=== PATIENT | male | born 1950 | race Caucasian/White ===

== ENCOUNTER 2018-07-13 18:26 | Inpatient (IN) | payer MEDICARE, OTHER ==
[~2018-07-13] VITALS: Ht 182.9 cm; Wt 106.3 kg
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
[2018-07-13 20:13] VITALS: BP 150/80
[2018-07-13] MEDS ORDERED: METHYL SALICYLATE/MENTHOL TOPICAL OINTMENT 29GM TUBE. TP PRN (21:00)
[2018-07-13] MEDS ORDERED: MAGNESIUM HYDROXIDE 2,400 MG/30 ML ORAL.SUSP. PO PRN (21:00)
[2018-07-13] MEDS ORDERED: ACETAMINOPHEN 325 MG TABLET PO PRN (21:00)
[2018-07-13] MEDS ORDERED: MAG HYDROX/AL HYDROX/SIMETH 30 ML ORAL.SUSP PO PRN (21:00)
[2018-07-13 21:26] LABS: BASO # 0.1 x10^3/uL (0.0-0.2); BASO % 1 % (0-3); EOS # 0.2 x10^3/uL (0.0-0.7); EOS % 2 % (0-3); HEMATOCRIT 44.8 % (39.0-53.0); HEMOGLOBIN 14.9 g/dL (13.0-17.5); LYMPH # 1.8 x10^3/uL (1.0-4.8); LYMPH % 21 % (24-48); MEAN CORPUSCULAR HEMOGLOBIN 31 pg (25-35); MEAN CORPUSCULAR HGB CONC 33 g/dL (31-37); MEAN CORPUSCULAR VOLUME 93 fL (79-100); MONO # 1.4 x10^3/uL (0.0-1.1); MONO % 16 % (0-9); NEUT # 5.4 x10^3uL (1.8-7.7); NEUT % 60 % (31-73); PLATELET COUNT 228 x10^3/uL (140-400); RED BLOOD COUNT 4.81 x10^6/uL (4.30-5.70); RED CELL DISTRIBUTION WIDTH 15.1 % (11.5-14.5); WHITE BLOOD COUNT 8.9 x10^3/uL (4.0-11.0)
[2018-07-13 21:38] LABS: ALBUMIN 3.2 g/dL (3.4-5.0); ALBUMIN/GLOBULIN RATIO 0.8 (1.0-1.7); GFR 74.1; TOTAL BILIRUBIN 0.3 mg/dL (0.2-1.0); TOTAL PROTEIN 7.2 g/dL (6.4-8.2)
--- NOTE | 2018-07-13 22:00 | NUR ---
Behavior Intervention Response and Plan: BIRP Note: Behavior: Assumed Care of patient, patient located in Patient Room at shift change. Patient exhibited the following behavior Calm, Social, Compliant. Brief assessment on rounds of vital signs, medication needs, lab studies, and pain. Treatment plan problems . Intervention: Patient assessed and the following interventions initiated safety checks 15 Minute Checks Cognitive Assessment , Head to toe Assessment , Nutrition. Response: After interactions and interventions patient responded in the following manner, Drowsy , Calm ,Social. Continue to assess behaviors and condition will continue to monitor throughout the shift as needed. Patient educated on ADL's, and hand hygiene. Plan: Continue to monitor Master Treatment Plan for patient's progress toward short term goals of Decreased Agitation, Decreased Anxiety, penitentiary goals to return to previous living setting vs placement. Continue to assess patient for changes in above assessment. Monitor for medication needs, pain, and safety concerns. Hourly rounding performed to ensure safe environment.
--- NOTE | 2018-07-13 22:33 | PDOC ---
Exam Note: Rick Note: Please also refer to the separate dictated note~for this date of service dictated separately. Discussed the patient with Nursing staff reviewed the chart.~Reviewed interim history and current functioning. Reviewed vital signs,~ Labs/ Radiology~and current medications noted below. Continue current treatment with the changes noted in the dictated addendum note Assessment: Vital Signs: Vital Signs Date Time Temp Pulse Resp B/P (MAP) Pulse Ox O2 Delivery O2 Flow Rate FiO2 07/13/18 20:13 97.5 88 16 150/80 (103) 95 Labs: Laboratory Tests Test 07/13/18 21:15 White Blood Count 8.9 x10^3/uL (4.0-11.0) Red Blood Count 4.81 x10^6/uL (4.30-5.70) Hemoglobin 14.9 g/dL (13.0-17.5) Hematocrit 44.8 % (39.0-53.0) Mean Corpuscular Volume 93 fL (79-100) Mean Corpuscular Hemoglobin 31 pg (25-35) Mean Corpuscular Hemoglobin Concent 33 g/dL (31-37) Red Cell Distribution Width 15.1 % (11.5-14.5) H Platelet Count 228 x10^3/uL (140-400) Neutrophils (%) (Auto) 60 % (31-73) Lymphocytes (%) (Auto) 21 % (24-48) L Monocytes (%) (Auto) 16 % (0-9) H Eosinophils (%) (Auto) 2 % (0-3) Basophils (%) (Auto) 1 % (0-3) Neutrophils # (Auto) 5.4 x10^3uL (1.8-7.7) Lymphocytes # (Auto) 1.8 x10^3/uL (1.0-4.8) Monocytes # (Auto) 1.4 x10^3/uL (0.0-1.1) H Eosinophils # (Auto) 0.2 x10^3/uL (0.0-0.7) Basophils # (Auto) 0.1 x10^3/uL (0.0-0.2) Sodium Level 138 mmol/L (136-145) Potassium Level 4.0 mmol/L (3.5-5.1) Chloride Level 101 mmol/L (98-107) Carbon Dioxide Level 33 mmol/L (21-32) H Anion Gap 4 (6-14) L Blood Urea Nitrogen 18 mg/dL (8-26) Creatinine 1.0 mg/dL (0.7-1.3) Estimated GFR (Cockcroft-Gault) 74.1 BUN/Creatinine Ratio 18 (6-20) Glucose Level 122 mg/dL (70-99) H Calcium Level 9.0 mg/dL (8.5-10.1) Magnesium Level 2.0 mg/dL (1.8-2.4) Total Bilirubin 0.3 mg/dL (0.2-1.0) Aspartate Amino Transferase (AST) 10 U/L (15-37) L Alanine Aminotransferase (ALT) 16 U/L (16-63) Alkaline Phosphatase 120 U/L (46-116) H Total Protein 7.2 g/dL (6.4-8.2) Albumin 3.2 g/dL (3.4-5.0) L Albumin/Globulin Ratio 0.8 (1.0-1.7) L Current Medications: Meds: Current Medications Acetaminophen (Tylenol) 650 mg PRN Q6HRS PRN PO PAIN / TEMP; Start 07/13/18 at 21:00 Multi-Ingredient Ointment (Analgesic [place]) 1 arpan PRN QID PRN TP MUSCLE PAIN; Start 07/13/18 at 21:00 Al Hydroxide/Mg Hydroxide (Mylanta Plus Xs) 15 ml PRN AFTMEALHC PRN PO DYSPEPSIA; Start 07/13/18 at 21:00 Magnesium Hydroxide (Milk Of Magnesia) 2,400 mg PRN QHS PRN PO CONSTIPATION; Start 07/13/18 at 21:00 I have reviewed the current psychotropics carefully including drug interactions. Risk benefit ratio favors no change other than as noted in my dictated progress note. Diagnosis: Problems: (1) Altered mental status JESSICA QUINTERO MD Jul 13, 2018 22:33
[2018-07-14] MEDS ORDERED: FURO-69 PO (00:21)
[2018-07-14] MEDS ORDERED: GUAI237L83 PO (00:21)
[2018-07-14] MEDS ORDERED: CLON0.5T11 PO (00:21)
[2018-07-14] MEDS ORDERED: OMEP20TA63 PO (00:21)
[2018-07-14] MEDS ORDERED: RISP50DI IM (00:21)
[2018-07-14] MEDS ORDERED: FINA5TAB4 PO (00:21)
[2018-07-14] MEDS ORDERED: ASPI-630 PO (00:21)
[2018-07-14] MEDS ORDERED: MENT118G TP (00:21)
[2018-07-14] MEDS ORDERED: CLON-276 PO (00:21)
[2018-07-14] MEDS ORDERED: SERT100T PO (00:21)
[2018-07-14] MEDS ORDERED: DIVA500T17 PO (00:21)
[2018-07-14] MEDS ORDERED: LEVO100T PO (00:21)
[2018-07-14] MEDS ORDERED: ACET500T68 PO (00:21)
[2018-07-14] MEDS ORDERED: NON FORMULARY ITEM (Menthol (Biofreeze) 1 APP) TP PRN (00:30)
[2018-07-14] MEDS ORDERED: clonazePAM 0.5 MG TABLET PO PRN (00:30)
[2018-07-14] MEDS ORDERED: guaiFENesin DM 200MG/20MG 10 ML SYRUP PO PRN (00:30)
[2018-07-14 00:59] LABS: VAL ACID 40 mcg/mL (50-100)
[2018-07-14 06:14] VITALS: BP 110/64
[2018-07-14 06:45] LABS: BILIRUBIN,URINE NEG (NEG); CLARITY,URINE CLEAR; COLOR,URINE YELLOW; GLUCOSE,URINE NEG (NEG)
[2018-07-14 06:46] LABS: BACTERIA,URINE 0 /HPF (0-FEW); NITRITE,URINE NEG (NEG); RBC,URINE 0 /HPF (0-2); UROBILINOGEN,URINE 0.2 mg/dL (0.2 mg/dL); WBC,URINE 0 /HPF (0-4)
[2018-07-14] MEDS ORDERED: LEVOTHYROXINE 100 MCG TABLET PO SCH (07:30)
[2018-07-14] MEDS: FUROSEMIDE 20 MG TABLET PO SCH (07:54)
[2018-07-14] MEDS: cloNIDine HCL 0.2 MG TABLET PO SCH ×2 (07:54→17:42)
[2018-07-14] MEDS: ASPIRIN 81 MG TAB.CHEW PO SCH (07:54)
[2018-07-14] MEDS: PANTOPRAZOLE 40 MG TABLET. PO SCH (07:54)
[2018-07-14] MEDS: FINASTERIDE 5 MG TABLET PO SCH (07:54)
--- NOTE | 2018-07-14 10:13 | NUR ---
Behavior Intervention Response and Plan: BIRP Note: Behavior: Assumed Care of patient, patient located in Dining Room at shift change. Patient exhibited the following behavior Calm, Compliant, Cooperative. Brief assessment on rounds of vital signs, medication needs, lab studies, and pain. Treatment plan problems . Intervention: Patient assessed and the following interventions initiated safety checks 15 Minute Checks Cognitive Assessment , Head to toe Assessment , Medications. Response: After interactions and interventions patient responded in the following manner, Calm , Compliant ,Cooperative. Continue to assess behaviors and condition will continue to monitor throughout the shift as needed. Patient educated on ADL's, and hand hygiene. Plan: Continue to monitor Master Treatment Plan for patient's progress toward short term goals of Decreased Agitation, Decreased Aggression, intermodal customer service goals to return to previous living setting vs placement. Continue to assess patient for changes in above assessment. Monitor for medication needs, pain, and safety concerns. Hourly rounding performed to ensure safe environment.
[2018-07-14 13:41] LABS: THYROID STIM HORMONE (TSH) 9.751 uIU/mL (0.358-3.740)
[2018-07-14 16:32] VITALS: BP 145/94
[2018-07-14 17:01] LABS: BACTERIA,URINE 0 /HPF (0-FEW); BILIRUBIN,URINE NEG (NEG); CLARITY,URINE CLEAR; COLOR,URINE YELLOW; GLUCOSE,URINE NEG (NEG); NITRITE,URINE NEG (NEG); RBC,URINE 0 /HPF (0-2); UROBILINOGEN,URINE 0.2 mg/dL (0.2 mg/dL); WBC,URINE RARE /HPF (0-4)
--- NOTE | 2018-07-14 17:48 | NUR ---
pt up adl to meals and out to day room at times. compliant with meds and cares. no c/o voices today. did c/o Bilat knee pain. Bengay given.
[2018-07-14] MEDS: SERTRALINE 100 MG TABLET. PO SCH (19:33)
[2018-07-14 20:07] LABS: THYROXINE 5.5 ug/dL (4.5-12.0)
[2018-07-14] MEDS ORDERED: DIVALPROEX ER 500 MG TAB.ER.24H PO SCH (21:00)
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
--- NOTE | 2018-07-14 22:32 | PDOC ---
Exam Note: Rick Note: Please also refer to the separate dictated note~for this date of service dictated separately.~Patient seen individually. Discussed the patient with Nursing staff reviewed the chart.~Reviewed interim history and current functioning. Reviewed vital signs,~Labs/ Radiology~and current medications noted below. Continue current treatment with the changes noted in the dictated addendum note Assessment: Vital Signs: Vital Signs Date Time Temp Pulse Resp B/P (MAP) Pulse Ox O2 Delivery O2 Flow Rate FiO2 07/14/18 17:42 65 145/94 07/14/18 16:32 97.6 18 100 Room Air I&O Intake and Output 07/14/18 07:00 Intake Total 500 ml Balance 500 ml Intake Oral 500 ml # Voids 1 # Bowel Movements 1 Labs: Laboratory Tests Test 07/14/18 06:25 07/14/18 16:30 Urine Collection Type Unknown Clean catch Urine Color Yellow Yellow Urine Clarity Clear Clear Urine pH 7.0 6.0 Urine Specific [place] 1.015 1.010 Urine Protein Neg (NEG-TRACE) Neg (NEG-TRACE) Urine Glucose (UA) Neg mg/dL (NEG) Neg mg/dL (NEG) Urine Ketones (Stick) Neg mg/dL (NEG) Neg mg/dL (NEG) Urine Blood Neg (NEG) Neg (NEG) Urine Nitrite Neg (NEG) Neg (NEG) Urine Bilirubin Neg (NEG) Neg (NEG) Urine Urobilinogen Dipstick 0.2 mg/dL (0.2 mg/dL) 0.2 mg/dL (0.2 mg/dL) Urine Leukocyte Esterase Neg (NEG) Neg (NEG) Urine RBC 0 /HPF (0-2) 0 /HPF (0-2) Urine WBC 0 /HPF (0-4) Rare /HPF (0-4) Urine Squamous Epithelial Cells None /LPF None /LPF Urine Bacteria 0 /HPF (0-FEW) 0 /HPF (0-FEW) Urine Mucus Slight /LPF Current Medications: Meds: Current Medications Acetaminophen (Tylenol) 650 mg PRN Q6HRS PRN PO PAIN / TEMP; Start 07/13/18 at 21:00 Multi-Ingredient Ointment (Analgesic [place]) 1 kiara PRN QID PRN TP MUSCLE PAIN Last administered on 07/14/18at 11:30; Start 07/13/18 at 21:00 Al Hydroxide/Mg Hydroxide (Mylanta Plus Xs) 15 ml PRN AFTMEALHC PRN PO DYSPEPSIA; Start 07/13/18 at 21:00 Magnesium Hydroxide (Milk Of Magnesia) 2,400 mg PRN QHS PRN PO CONSTIPATION; Start 07/13/18 at 21:00 Clonazepam (KlonoPIN) 0.5 mg PRN DAILY PRN PO ANXIETY / AGITATION Last administered on 07/14/18 07:54; Start 07/14/18 at 00:30 Furosemide (Lasix) 20 mg DAILY PO Last administered on 07/14/18 07:54; Start 07/14/18 at 09:00 Levothyroxine Sodium (Synthroid) 100 mcg DAILYAC PO Last administered on 07:53; Start 07/14/18 at 07:30; Stop 07/14/18 at 07:57; Status DC Risperidone (RisperDAL CONSTA) 50 mg Q2WKS IM ; Start 07/20/18 at 09:00 Sertraline HCl (Zoloft) 100 mg HS PO Last administered on 07/14/18 19:33; Start 07/14/18 at 21:00 Acetaminophen (Tylenol) 500 mg PRN Q6HRS PRN PO MILD PAIN / TEMP; Start at 00:30 Aspirin (Children'S Aspirin) 81 mg DAILYWBKFT PO Last administered on 07:54; Start 07/14/18 at 08:00 Clonidine HCl (Catapres) 0.2 mg BIDWMEALS PO Last administered on 07/14/18 17: 42; Start 07/14/18 at 08:00 Divalproex Sodium (Depakote Er) 1,000 mg QHS PO Last administered on 07/14/18 19:33; Start 07/14/18 at 21:00 Finasteride (Proscar) 5 mg DAILY PO Last administered on 07/14/18 07:54; Start 07/14/18 at 09:00 Guaifenesin (Robitussin Dm) 5 ml PRN Q8HRS PRN PO COUGH; Start 07/14/18 at 00: 30 Non-Formulary Medication (Menthol (Biofreeze)) 1 kiara QIDPRN PRN TP PAIN; Start 07/14/18 at 00:30; Status UNV Pantoprazole Sodium (Protonix) 40 mg DAILYAC PO Last administered on 07/14/18at 07:54; Start 07/14/18 at 07:30 Levothyroxine Sodium (Synthroid) 100 mcg DAILY06 PO ; Start 07/15/18 at 06:00 Risperidone (RisperDAL CONSTA) 50 mg Q2WKS IM ; Start 07/20/18 at 09:00; Stop at 09:00; Status DC Active Scripts Active Reported Zoloft (Sertraline Hcl) 100 Mg Tablet 100 Mg PO HS Risperdal Consta (Risperidone Microspheres) 50 Mg/2 Ml Disp.syrin 50 Mg IM Q2WKS Prilosec Otc (Omeprazole Magnesium) 20 Mg Tablet.dr 40 Mg PO DAILY Biofreeze (Menthol) 118 Ml Gel..ml. 1 Kiara TP QIDPRN PRN Synthroid (Levothyroxine Sodium) 100 Mcg Tablet 100 Mcg PO DAILYAC Lasix (Furosemide) 20 Mg Tablet 20 Mg PO DAILY Finasteride 5 Mg Tablet 5 Mg PO DAILY Divalproex Sodium Er (Divalproex Sodium) 500 Mg Tab.er.24h 1,000 Mg PO HS Robitussin Cough-Chest Dm Liq (Guaifenesin/Dextromethorphan) 237 Ml Liquid 5 Ml PO PRN Q8HRS PRN Clonazepam 0.5 Mg Tablet 0.5 Mg PO PRN DAILY PRN Clonidine Hcl 0.2 Mg Tablet 0.2 Mg PO BIDWMEALS Aspirin 81 Mg Tab.chew 81 Mg PO DAILY Acetaminophen 500 Mg Tablet 500 Mg PO PRN Q6HRS PRN I have reviewed the current psychotropics carefully including drug interactions. Risk benefit ratio favors no change other than as noted in my dictated progress note. Diagnosis: Problems: (1) Altered mental status (2) Anxiety disorder (3) Psychosis, atypical (4) Major depressive disorder, recurrent episode (5) Mild cognitive impairment JESSICA QUINTERO MD Jul 14, 2018 22:32
[2018-07-14 23:11] LABS: HEMOGLOBIN A1C 5.7 % (4.8-5.6)
--- NOTE | 2018-07-15 01:46 | NUR ---
Pt sitting in room at shift change. Pt calm, pleasant, interactive, and social. Pt cooperative and compliant with medications and assessment.
[2018-07-15] MEDS: LEVOTHYROXINE 100 MCG TABLET PO SCH (06:26)
[2018-07-15 06:40] VITALS: BP 117/76
[2018-07-15] MEDS: cloNIDine HCL 0.2 MG TABLET PO SCH ×2 (08:11→18:06)
[2018-07-15] MEDS: ASPIRIN 81 MG TAB.CHEW PO SCH (08:11)
[2018-07-15] MEDS: FUROSEMIDE 20 MG TABLET PO SCH (08:11)
[2018-07-15] MEDS: FINASTERIDE 5 MG TABLET PO SCH (08:11)
[2018-07-15] MEDS: PANTOPRAZOLE 40 MG TABLET. PO SCH (08:11)
--- NOTE | 2018-07-15 09:54 | NUR ---
Behavior Intervention Response and Plan: BIRP Note: Behavior: Assumed Care of patient, patient located in Dining Room at shift change. Patient exhibited the following behavior Calm, Compliant, Cooperative. Brief assessment on rounds of vital signs, medication needs, lab studies, and pain. Treatment plan problems . Intervention: Patient assessed and the following interventions initiated safety checks 15 Minute Checks Cognitive Assessment , Head to toe Assessment , Medications. Response: After interactions and interventions patient responded in the following manner, Calm , Compliant ,Cooperative. Continue to assess behaviors and condition will continue to monitor throughout the shift as needed. Patient educated on ADL's, and hand hygiene. 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 Continue to assess patient for changes in above assessment. Monitor for medication needs, pain, and safety concerns. Hourly rounding performed to ensure safe environment.
[2018-07-15 16:01] VITALS: BP 148/96
--- NOTE | 2018-07-15 18:19 | NUR ---
pt up adl to meals. usually withdrawn to room. Dr Diop informed of c/o of groin pain and bilat hip pain. News noted. Pt compliant with meds and cares.
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
[2018-07-15] MEDS: HALOPERIDOL 10 MG/5 ML ORAL.CONC. PO SCH (20:47)
[2018-07-15] MEDS: DIVALPROEX ER 250 MG TAB.ER.24H. PO SCH (20:47)
[2018-07-15] MEDS: SERTRALINE 100 MG TABLET. PO SCH (20:47)
[2018-07-15] MEDS ORDERED: HALOPERIDOL 2 MG TABLET PO SCH (21:00)
--- NOTE | 2018-07-15 21:46 | PDOC ---
Exam Note: Rick Note: Please also refer to the separate dictated note~for this date of service dictated separately.~Patient seen individually. Discussed the patient with Nursing staff reviewed the chart.~Reviewed interim history and current functioning. Reviewed vital signs,~Labs/ Radiology~and current medications noted below. Continue current treatment with the changes noted in the dictated addendum note Assessment: Vital Signs: Vital Signs Date Time Temp Pulse Resp B/P (MAP) Pulse Ox O2 Delivery O2 Flow Rate FiO2 07/15/18 18:06 65 148/96 07/15/18 16:01 98.0 18 95 07/14/18 16:32 Room Air I&O Intake and Output 07/15/18 07:00 Intake Total 840 ml Balance 840 ml Intake Oral 840 ml Current Medications: Meds: Current Medications Acetaminophen (Tylenol) 650 mg PRN Q6HRS PRN PO PAIN / TEMP; Start 07/13/18 at 21:00 Multi-Ingredient Ointment (Analgesic [place]) 1 kiara PRN QID PRN TP MUSCLE PAIN Last administered on 07/14/18at 11:30; Start 07/13/18 at 21:00 Al Hydroxide/Mg Hydroxide (Mylanta Plus Xs) 15 ml PRN AFTMEALHC PRN PO DYSPEPSIA; Start 07/13/18 at 21:00 Magnesium Hydroxide (Milk Of Magnesia) 2,400 mg PRN QHS PRN PO CONSTIPATION; Start 07/13/18 at 21:00 Clonazepam (KlonoPIN) 0.5 mg PRN DAILY PRN PO ANXIETY / AGITATION Last administered on 07/14/18at 07:54; Start 07/14/18 at 00:30 Furosemide (Lasix) 20 mg DAILY PO Last administered on 07/15/18at 08:11; Start 07/14/18 at 09:00 Levothyroxine Sodium (Synthroid) 100 mcg DAILYAC PO Last administered on at 07:53; Start 07/14/18 at 07:30; Stop 07/14/18 at 07:57; Status DC Risperidone (RisperDAL CONSTA) 50 mg Q2WKS IM ; Start 07/20/18 at 09:00 Sertraline HCl (Zoloft) 100 mg HS PO Last administered on 07/15/18at 20:47; Start 07/14/18 at 21:00 Acetaminophen (Tylenol) 500 mg PRN Q6HRS PRN PO MILD PAIN / TEMP; Start at 00:30 Aspirin (Children'S Aspirin) 81 mg DAILYWBKFT PO Last administered on at 08:11; Start 07/14/18 at 08:00 Clonidine HCl (Catapres) 0.2 mg BIDWMEALS PO Last administered on 07/15/18 18: 06; Start 07/14/18 at 08:00 Divalproex Sodium (Depakote Er) 1,000 mg QHS PO Last administered on 07/14/18 19:33; Start 07/14/18 at 21:00; Stop 07/15/18 at 19:35; Status DC Finasteride (Proscar) 5 mg DAILY PO Last administered on 07/15/18at 08:11; Start 07/14/18 at 09:00 Guaifenesin (Robitussin Dm) 5 ml PRN Q8HRS PRN PO COUGH; Start 07/14/18 at 00: 30 Non-Formulary Medication (Menthol (Biofreeze)) 1 kiara QIDPRN PRN TP PAIN; Start 07/14/18 at 00:30; Status UNV Pantoprazole Sodium (Protonix) 40 mg DAILYAC PO Last administered on 07/15/18at 08:11; Start 07/14/18 at 07:30 Levothyroxine Sodium (Synthroid) 100 mcg DAILY06 PO Last administered on at 06:26; Start 07/15/18 at 06:00 Risperidone (RisperDAL CONSTA) 50 mg Q2WKS IM ; Start 07/20/18 at 09:00; Stop at 09:00; Status DC Meloxicam (Mobic) 15 mg DAILY PO ; Start 07/16/18 at 09:00 Divalproex Sodium (Depakote Er) 1,250 mg QHS PO Last administered on 07/15/18at 20:47; Start 07/15/18 at 21:00 Haloperidol (Haldol) 2 mg HS PO ; Start 07/15/18 at 21:00; Stop 07/15/18 at 21: 00; Status DC Haloperidol Lactate (HALDOL 10mg ORAL CONC) 2 mg HS PO Last administered on at 20:47; Start 07/15/18 at 21:00 Active Scripts Active Reported Zoloft (Sertraline Hcl) 100 Mg Tablet 100 Mg PO HS Risperdal Consta (Risperidone Microspheres) 50 Mg/2 Ml Disp.syrin 50 Mg IM Q2WKS Prilosec Otc (Omeprazole Magnesium) 20 Mg Tablet.dr 40 Mg PO DAILY Biofreeze (Menthol) 118 Ml Gel..ml. 1 Kiara TP QIDPRN PRN Synthroid (Levothyroxine Sodium) 100 Mcg Tablet 100 Mcg PO DAILYAC Lasix (Furosemide) 20 Mg Tablet 20 Mg PO DAILY Finasteride 5 Mg Tablet 5 Mg PO DAILY Divalproex Sodium Er (Divalproex Sodium) 500 Mg Tab.er.24h 1,000 Mg PO HS Robitussin Cough-Chest Dm Liq (Guaifenesin/Dextromethorphan) 237 Ml Liquid 5 Ml PO PRN Q8HRS PRN Clonazepam 0.5 Mg Tablet 0.5 Mg PO PRN DAILY PRN Clonidine Hcl 0.2 Mg Tablet 0.2 Mg PO BIDWMEALS Aspirin 81 Mg Tab.chew 81 Mg PO DAILY Acetaminophen 500 Mg Tablet 500 Mg PO PRN Q6HRS PRN I have reviewed the current psychotropics carefully including drug interactions. Risk benefit ratio favors no change other than as noted in my dictated progress note. Diagnosis: Problems: (1) Altered mental status (2) Anxiety disorder (3) Psychosis, atypical (4) Major depressive disorder, recurrent episode (5) Mild cognitive impairment (6) Schizoaffective disorder, chronic condition with acute exacerbation JESSICA QUINTERO MD Jul 15, 2018 21:46
--- NOTE | 2018-07-15 22:07 | NUR ---
Pt sitting quietly in his room at shift change. Pt pleasant, interactive, and social. Pt cooperative and compliant with assessment and medications.
[2018-07-16] MEDS: LEVOTHYROXINE 100 MCG TABLET PO SCH (05:10)
[2018-07-16 05:46] VITALS: BP 111/69
[2018-07-16] MEDS: ASPIRIN 81 MG TAB.CHEW PO SCH (07:52)
[2018-07-16] MEDS: cloNIDine HCL 0.2 MG TABLET PO SCH ×2 (07:52→18:14)
[2018-07-16] MEDS: FUROSEMIDE 20 MG TABLET PO SCH (07:52)
[2018-07-16] MEDS: PANTOPRAZOLE 40 MG TABLET. PO SCH (07:53)
[2018-07-16] MEDS: FINASTERIDE 5 MG TABLET PO SCH (07:53)
[2018-07-16] MEDS: MELOXICAM 15 MG TABLET. PO SCH (07:58)
--- NOTE | 2018-07-16 09:49 | NUR ---
Behavior Intervention Response and Plan: BIRP Note: Behavior: Assumed Care of patient, patient located in Dining Room at shift change. Patient exhibited the following behavior Calm, Compliant, Cooperative. Brief assessment on rounds of vital signs, medication needs, lab studies, and pain. Treatment plan problems . Intervention: Patient assessed and the following interventions initiated safety checks 15 Minute Checks Cognitive Assessment , Head to toe Assessment , Medications. Response: After interactions and interventions patient responded in the following manner, Calm , Compliant ,Cooperative. Continue to assess behaviors and condition will continue to monitor throughout the shift as needed. Patient educated on ADL's, and hand hygiene. 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 Continue to assess patient for changes in above assessment. Monitor for medication needs, pain, and safety concerns. Hourly rounding performed to ensure safe environment.
--- NOTE | 2018-07-16 10:20 | NUR ---
ACTIVITY THERAPY ASSESSMENT Completed based on interview. Pt. was in the day room and willing to speak with PULP REFINER OPERATOR. He chose to go back to his room to answer questions. He was aware of his room location and room number. When asked about leisure interests, Pt. stated he enjoyed coloring with coloring pencils, word searches, old car/ hot vidal magazines, country/western music, Bingo, willing to participate in workout sessions. He shared he was not watch TV or play cards. PULP REFINER OPERATOR spoke about stress/ anxiety and asked how Pt. handles it. 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 He denied having many friends now that he was retired and his oldest two sons are not around and probably unaware he is here. His youngest son is around the most and wanted him to come here and get a second opinion and work on getting his medications adjusted. When asked what brought the Pt. here, he explained there was a man out to get him. He went on to say PULP REFINER OPERATOR probably won't believe him but he sees this invisible man and he hopes someone does believe him and that a medication adjustment will help. Pt. likes to be called "Justin" and joked that his mother called him Elian. He imitated her nagging at him when he was younger. Pt. was pleasant to speak to, wore cowboy boots, talked about having horses in the past and appeared comfortable around others and one on one. Initial goal aimed to increase engagement: Pt. will participate in at least one Activity Therapy group per day. Addendum: 08/03/18 at 1009 by ROSELIA LOPEZ ACT Goal changed 08/03/2018- Pt. will participate in at least three Activity Therapy groups before discharge.
[2018-07-16 16:06] VITALS: BP 119/71
--- NOTE | 2018-07-16 18:25 | NUR ---
pt up adl to meals compliant with meds. Pt c/o to night staff that he was having hip pain. Dr Diop ordered xray. When pt taken to xray pt stated he never reported any hip pain and refused xray. pt noted to episodes of ST memory deficit.
[2018-07-16] MEDS: SERTRALINE 100 MG TABLET. PO SCH (19:44)
[2018-07-16] MEDS: HALOPERIDOL 10 MG/5 ML ORAL.CONC. PO SCH (19:44)
[2018-07-16] MEDS: DIVALPROEX ER 250 MG TAB.ER.24H. PO SCH (19:45)
--- NOTE | 2018-07-16 21:00 | NUR ---
Behavior Intervention Response and Plan: BIRP Note: Behavior: Assumed Care of patient, patient located in Patient Room at shift change. Patient exhibited the following behavior Calm, Interactive, Appropriate. Brief assessment on rounds of vital signs, medication needs, lab studies, and pain. Treatment plan problems . Intervention: Patient assessed and the following interventions initiated safety checks 15 Minute Checks Personal Alarm in place , Head to toe Assessment , Cognitive Assessment. Response: After interactions and interventions patient responded in the following manner, Able to Focus on Task , Cooperative ,Compliant. Continue to assess behaviors and condition will continue to monitor throughout the shift as needed. Patient educated on ADL's, and hand hygiene. Plan: Continue to monitor Master Treatment Plan for patient's progress toward short term goals of Decreased Anxiety, Medication Compliance, halfway goals to return to previous living setting vs placement. Continue to assess patient for changes in above assessment. Monitor for medication needs, pain, and safety concerns. Hourly rounding performed to ensure safe environment. Pt states he isn't currently seeing invisible men.
--- NOTE | 2018-07-16 22:32 | PDOC ---
Exam Note: Rick Note: Please also refer to the separate dictated note~for this date of service dictated separately.~Patient seen individually. Discussed the patient with Nursing staff reviewed the chart.~Reviewed interim history and current functioning. Reviewed vital signs,~Labs/ Radiology~and current medications noted below. Continue current treatment with the changes noted in the dictated addendum note Assessment: Vital Signs: Vital Signs Date Time Temp Pulse Resp B/P (MAP) Pulse Ox O2 Delivery O2 Flow Rate FiO2 07/16/18 18:14 62 119/71 07/16/18 16:06 98.1 18 100 07/14/18 16:32 Room Air I&O Intake and Output 07/16/18 07:00 Intake Total 1360 ml Balance 1360 ml Intake Oral 1360 ml Current Medications: Meds: Current Medications Acetaminophen (Tylenol) 650 mg PRN Q6HRS PRN PO PAIN / TEMP; Start 07/13/18 at 21:00 Multi-Ingredient Ointment (Analgesic [place]) 1 kiara PRN QID PRN TP MUSCLE PAIN Last administered on 07/14/18at 11:30; Start 07/13/18 at 21:00 Al Hydroxide/Mg Hydroxide (Mylanta Plus Xs) 15 ml PRN AFTMEALHC PRN PO DYSPEPSIA; Start 07/13/18 at 21:00 Magnesium Hydroxide (Milk Of Magnesia) 2,400 mg PRN QHS PRN PO CONSTIPATION; Start 07/13/18 at 21:00 Clonazepam (KlonoPIN) 0.5 mg PRN DAILY PRN PO ANXIETY / AGITATION Last administered on 07/14/18at 07:54; Start 07/14/18 at 00:30 Furosemide (Lasix) 20 mg DAILY PO Last administered on 07/16/18at 07:52; Start 07/14/18 at 09:00 Levothyroxine Sodium (Synthroid) 100 mcg DAILYAC PO Last administered on at 07:53; Start 07/14/18 at 07:30; Stop 07/14/18 at 07:57; Status DC Risperidone (RisperDAL CONSTA) 50 mg Q2WKS IM ; Start 07/20/18 at 09:00 Sertraline HCl (Zoloft) 100 mg HS PO Last administered on 07/16/18at 19:44; Start 07/14/18 at 21:00 Acetaminophen (Tylenol) 500 mg PRN Q6HRS PRN PO MILD PAIN / TEMP; Start at 00:30 Aspirin (Children'S Aspirin) 81 mg DAILYWBKFT PO Last administered on at 07:52; Start 07/14/18 at 08:00 Clonidine HCl (Catapres) 0.2 mg BIDWMEALS PO Last administered on 07/16/18at 18: 14; Start 07/14/18 at 08:00 Divalproex Sodium (Depakote Er) 1,000 mg QHS PO Last administered on 07/14/18at 19:33; Start 07/14/18 at 21:00; Stop 07/15/18 at 19:35; Status DC Finasteride (Proscar) 5 mg DAILY PO Last administered on 07/16/18at 07:53; Start 07/14/18 at 09:00 Guaifenesin (Robitussin Dm) 5 ml PRN Q8HRS PRN PO COUGH; Start 07/14/18 at 00: 30 Non-Formulary Medication (Menthol (Biofreeze)) 1 kiara QIDPRN PRN TP PAIN; Start 07/14/18 at 00:30; Status UNV Pantoprazole Sodium (Protonix) 40 mg DAILYAC PO Last administered on 07/16/18at 07:53; Start 07/14/18 at 07:30 Levothyroxine Sodium (Synthroid) 100 mcg DAILY06 PO Last administered on at 05:10; Start 07/15/18 at 06:00 Risperidone (RisperDAL CONSTA) 50 mg Q2WKS IM ; Start 07/20/18 at 09:00; Stop at 09:00; Status DC Meloxicam (Mobic) 15 mg DAILY PO Last administered on 07/16/18at 07:58; Start at 09:00 Divalproex Sodium (Depakote Er) 1,250 mg QHS PO Last administered on 07/16/18at 19:45; Start 07/15/18 at 21:00 Haloperidol (Haldol) 2 mg HS PO ; Start 07/15/18 at 21:00; Stop 07/15/18 at 21: 00; Status DC Haloperidol Lactate (HALDOL 10mg ORAL CONC) 2 mg HS PO Last administered on at 19:44; Start 07/15/18 at 21:00 Active Scripts Active Reported Zoloft (Sertraline Hcl) 100 Mg Tablet 100 Mg PO HS Risperdal Consta (Risperidone Microspheres) 50 Mg/2 Ml Disp.syrin 50 Mg IM Q2WKS Prilosec Otc (Omeprazole Magnesium) 20 Mg Tablet.dr 40 Mg PO DAILY Biofreeze (Menthol) 118 Ml Gel..ml. 1 Kiara TP QIDPRN PRN Synthroid (Levothyroxine Sodium) 100 Mcg Tablet 100 Mcg PO DAILYAC Lasix (Furosemide) 20 Mg Tablet 20 Mg PO DAILY Finasteride 5 Mg Tablet 5 Mg PO DAILY Divalproex Sodium Er (Divalproex Sodium) 500 Mg Tab.er.24h 1,000 Mg PO HS Robitussin Cough-Chest Dm Liq (Guaifenesin/Dextromethorphan) 237 Ml Liquid 5 Ml PO PRN Q8HRS PRN Clonazepam 0.5 Mg Tablet 0.5 Mg PO PRN DAILY PRN Clonidine Hcl 0.2 Mg Tablet 0.2 Mg PO BIDWMEALS Aspirin 81 Mg Tab.chew 81 Mg PO DAILY Acetaminophen 500 Mg Tablet 500 Mg PO PRN Q6HRS PRN I have reviewed the current psychotropics carefully including drug interactions. Risk benefit ratio favors no change other than as noted in my dictated progress note. Diagnosis: Problems: (1) Altered mental status (2) Anxiety disorder (3) Psychosis, atypical (4) Major depressive disorder, recurrent episode (5) Mild cognitive impairment (6) Schizoaffective disorder, chronic condition with acute exacerbation JESSICA QUINTERO MD Jul 16, 2018 22:32
--- NOTE | 2018-07-17 01:14 | PN ---
DATE: 07/15/2018 PSYCHIATRIC PROGRESS NOTE This late entry 07/15/2018 covers elements not covered in my initial note. SUBJECTIVE: I met with the patient at length on the evening of 07/15/2018. The patient slept 6-1/2 hours previous night. He has had intermittent hallucinations, states the men are following him here as well and throwing things at him, spraying stuff on him. Valproic acid level is 40. Reviewed the patient's psychotic symptoms at length with them. He states he still sees invisible men and hears them whistling at him. 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 He used to drink beers but no ____, DTs or shakes. REVIEW OF SYSTEMS: No CV, , pulmonary, eye system symptoms on review. MENTAL STATUS EXAM: Oriented to himself and situation. Speech is coherent, abstraction fair, computation somewhat impaired, language function intact. Attention span short. No suicidal or homicidal ideation. DIAGNOSTIC STUDIES: CT of head shows chronic mitral vascular changes. No acute changes. LABORATORY DATA: Reviewed. IMPRESSION: Psychotic disorder, unspecified; cognitive disorder, unspecified versus major neurocognitive disorder, early vascular with delusions, major depressive disorder with psychotic features. PLAN: Reviewed records from the [facility] and he is on Risperdal Consta 50 mg every 2 weeks, Klonopin 0.25 b.i.d. plus p.r.n., Depakote ER 1000 mg at bedtime. Valproic acid level subtherapeutic at 40. We will increase Depakote ER to 1250 mg at bedtime. Check CBC, CMP, valproic acid level in 3 days to reach therapeutic level. Start Haldol 2 mg p.o. at bedtime for his ongoing psychotic symptoms. MAN Nathalie QUINTERO MD DR: VIV/prakash JOB#: [id number] / [id number]
[2018-07-17] MEDS: LEVOTHYROXINE 100 MCG TABLET PO SCH (05:58)
[2018-07-17 06:09] VITALS: BP 101/68
[2018-07-17] MEDS: MELOXICAM 15 MG TABLET. PO SCH (08:14)
[2018-07-17] MEDS: FINASTERIDE 5 MG TABLET PO SCH (08:14)
[2018-07-17] MEDS: ASPIRIN 81 MG TAB.CHEW PO SCH (08:14)
[2018-07-17] MEDS: FUROSEMIDE 20 MG TABLET PO SCH (08:14)
[2018-07-17] MEDS: PANTOPRAZOLE 40 MG TABLET. PO SCH (08:14)
[2018-07-17] MEDS: cloNIDine HCL 0.2 MG TABLET PO SCH ×2 (08:16→16:02)
--- NOTE | 2018-07-17 15:00 | NUR ---
PSYCHOSOCIAL ASSESSMENT ADMISSION DATE: 07/13/18 CONTACT INFORMATION: DPOA/Guardian Contact Name: Ben Lawson Contact Address: [place], [place] Contact Phone #: [phone] ETHNIC ORIGIN: REASONS FOR ADMISSION: Confusion/Disoriented Delusions Hallucinations Suspicious/paranoid ADDITIONAL ADMISSION COMMENTS: REASON FOR ADMISSION IN PATIENT/FAMILY'S OWN WORDS: Family unable to be reached at the time of assessment. Pt reports that she needs help with his "problem". PATIENT/FAMILY EXPECTATIONS FOR ADMISSION: Medication management. Pt reports "this is my 2nd opinion". LIVING SITUATION: Patient lives with: Alone FAMILY RELATIONS: Marital Status: # of Marriages: # of Children: 3 [facility] Family Support: Unavailable Additional Comments r/t Family: Pt did not wish to discuss family. He was able to tell SW that he had 3 sons: one in [place], 1 in [place] and 1 in [place], [place] SIGNIFICANT PSYCHIATRIC/MEDICAL HISTORY: Psychiatric/Treatment History: Pt was at [facility] in [place], [place] for 40 days roughly 2 months ago. This is his first inpt admission to [facility]. Pertinent Family History: UNKNOWN HISTORICAL DATA: Childhood Environment: Comment: Pt declined talking to his family. 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 Veronica Barnard [phone] Counselor/Therapist: [facility]: Support Group: Client Success Manager/Body Builder Apprentice: Other relationships: STRENGTHS & WEAKNESSES: Patient's strengths: Good verbal skills Other patient strengths: memory mostly intact Patient's weaknesses: Poor family support Health problems Other patient weaknesses: PRELIMINARY PLAN OF TREATMENT: Preliminary plan: Dec. Hallucination/Delus Promote Coping Skill Medication Stabilization Other preliminary treatment comments: DISCHARGE PLANNING: Discharge planning/disposition: Home Outpatient Followup Additional discharge needs identified: Pt reports wanting to discharge home and living near his son, who is roughly a block away. ADDITIONAL INFORMATION: Other Pertinent Data: SW was not able to fully complete a PSA as pt was more focused on wanting to complete a police report for items stolen from his storage unit. Pt initially asked that SW contact his son to also help pay a few of his bills; but later reported he talked to his son, himself and that is taken care of. SW will continue to attempt to build rapport with pt.
--- NOTE | 2018-07-17 15:30 | NUR ---
Pt. asked for assistance writing down thoughts to talk to his son about. ATOMIC PHYSICS TEACHER met with Pt. for about ten minutes. Pt. made notes about paying the bank, clinic, transferring money to son, changing oil in truck, and filing a police report for a few stolen items a week/ week and a half ago from storage unit in [place]. ATOMIC PHYSICS TEACHER left Pt's the notes with paper and marker. ATOMIC PHYSICS TEACHER copied the notes and gave to Pt's web content & social media manager.
[2018-07-17 16:15] VITALS: BP 135/82
--- NOTE | 2018-07-17 18:44 | NUR ---
Pt calm, compliant with meds and cares. Pleasant and interactive with staff. Withdrawn to room most of the day.
[2018-07-17] MEDS: DIVALPROEX ER 250 MG TAB.ER.24H. PO SCH (20:32)
[2018-07-17] MEDS: HALOPERIDOL 10 MG/5 ML ORAL.CONC. PO SCH (20:33)
--- NOTE | 2018-07-17 21:00 | NUR ---
Behavior Intervention Response and Plan: BIRP Note: Behavior: Assumed Care of patient, patient located in Patient Room at shift change. Patient exhibited the following behavior Interactive, Calm, Cooperative. Brief assessment on rounds of vital signs, medication needs, lab studies, and pain. Treatment plan problems . Intervention: Patient assessed and the following interventions initiated safety checks 15 Minute Checks Cognitive Assessment , Head to toe Assessment , Medications. Response: After interactions and interventions patient responded in the following manner, Drowsy , Calm ,Sleeping. Continue to assess behaviors and condition will continue to monitor throughout the shift as needed. Patient educated on ADL's, and hand hygiene. Plan: Continue to monitor Master Treatment Plan for patient's progress toward short term goals of Decreased Anxiety, No harm To self/ others, long term care pharmacist goals to return to previous living setting vs placement. Continue to assess patient for changes in above assessment. Monitor for medication needs, pain, and safety concerns. Hourly rounding performed to ensure safe environment.
--- NOTE | 2018-07-17 22:21 | PDOC ---
Exam Note: Rick Note: Please also refer to the separate dictated note~for this date of service dictated separately.~Patient seen individually. Discussed the patient with Nursing staff reviewed the chart.~Reviewed interim history and current functioning. Reviewed vital signs,~Labs/ Radiology~and current medications noted below. Continue current treatment with the changes noted in the dictated addendum note Assessment: Vital Signs: Vital Signs Date Time Temp Pulse Resp B/P (MAP) Pulse Ox O2 Delivery O2 Flow Rate FiO2 07/17/18 16:15 96.7 57 16 135/82 (99) 99 07/14/18 16:32 Room Air I&O Intake and Output 07/17/18 07:00 Intake Total 1800 ml Balance 1800 ml Intake Oral 1800 ml Current Medications: Meds: Current Medications Acetaminophen (Tylenol) 650 mg PRN Q6HRS PRN PO PAIN / TEMP; Start 07/13/18 at 21:00 Multi-Ingredient Ointment (Analgesic [place]) 1 kiara PRN QID PRN TP MUSCLE PAIN Last administered on 07/14/18at 11:30; Start 07/13/18 at 21:00 Al Hydroxide/Mg Hydroxide (Mylanta Plus Xs) 15 ml PRN AFTMEALHC PRN PO DYSPEPSIA; Start 07/13/18 at 21:00 Magnesium Hydroxide (Milk Of Magnesia) 2,400 mg PRN QHS PRN PO CONSTIPATION; Start 07/13/18 at 21:00 Clonazepam (KlonoPIN) 0.5 mg PRN DAILY PRN PO ANXIETY / AGITATION Last administered on 07/14/18at 07:54; Start 07/14/18 at 00:30 Furosemide (Lasix) 20 mg DAILY PO Last administered on 07/17/18at 08:14; Start 07/14/18 at 09:00 Levothyroxine Sodium (Synthroid) 100 mcg DAILYAC PO Last administered on at 07:53; Start 07/14/18 at 07:30; Stop 07/14/18 at 07:57; Status DC Risperidone (RisperDAL CONSTA) 50 mg Q2WKS IM ; Start 07/20/18 at 09:00 Sertraline HCl (Zoloft) 100 mg HS PO Last administered on 07/16/18at 19:44; Start 07/14/18 at 21:00; Stop 07/17/18 at 19:12; Status DC Acetaminophen (Tylenol) 500 mg PRN Q6HRS PRN PO MILD PAIN / TEMP; Start at 00:30 Aspirin (Children'S Aspirin) 81 mg DAILYWBKFT PO Last administered on at 08:14; Start 07/14/18 at 08:00 Clonidine HCl (Catapres) 0.2 mg BIDWMEALS PO Last administered on 07/17/18 16: 02; Start 07/14/18 at 08:00 Divalproex Sodium (Depakote Er) 1,000 mg QHS PO Last administered on 07/14/18 19:33; Start 07/14/18 at 21:00; Stop 07/15/18 at 19:35; Status DC Finasteride (Proscar) 5 mg DAILY PO Last administered on 07/17/18 08:14; Start 07/14/18 at 09:00 Guaifenesin (Robitussin Dm) 5 ml PRN Q8HRS PRN PO COUGH; Start 07/14/18 at 00: 30 Non-Formulary Medication (Menthol (Biofreeze)) 1 kiara QIDPRN PRN TP PAIN; Start 07/14/18 at 00:30; Status UNV Pantoprazole Sodium (Protonix) 40 mg DAILYAC PO Last administered on 07/17/18at 08:14; Start 07/14/18 at 07:30 Levothyroxine Sodium (Synthroid) 100 mcg DAILY06 PO Last administered on at 05:58; Start 07/15/18 at 06:00 Risperidone (RisperDAL CONSTA) 50 mg Q2WKS IM ; Start 07/20/18 at 09:00; Stop at 09:00; Status DC Meloxicam (Mobic) 15 mg DAILY PO Last administered on 07/17/18at 08:14; Start at 09:00 Divalproex Sodium (Depakote Er) 1,250 mg QHS PO Last administered on 07/17/18at 20:32; Start 07/15/18 at 21:00 Haloperidol (Haldol) 2 mg HS PO ; Start 07/15/18 at 21:00; Stop 07/15/18 at 21: 00; Status DC Haloperidol Lactate (HALDOL 10mg ORAL CONC) 2 mg HS PO Last administered on at 20:33; Start 07/15/18 at 21:00 Fluvoxamine Maleate (Luvox) 25 mg HS PO Last administered on 07/17/18at 20:39; Start 07/17/18 at 21:00; Stop 07/20/18 at 20:59 Fluvoxamine Maleate (Luvox) 50 mg HS PO ; Start 07/20/18 at 21:00 Active Scripts Active Reported Zoloft (Sertraline Hcl) 100 Mg Tablet 100 Mg PO HS Risperdal Consta (Risperidone Microspheres) 50 Mg/2 Ml Disp.syrin 50 Mg IM Q2WKS Prilosec Otc (Omeprazole Magnesium) 20 Mg Tablet.dr 40 Mg PO DAILY Biofreeze (Menthol) 118 Ml Gel..ml. 1 Kiara TP QIDPRN PRN Synthroid (Levothyroxine Sodium) 100 Mcg Tablet 100 Mcg PO DAILYAC Lasix (Furosemide) 20 Mg Tablet 20 Mg PO DAILY Finasteride 5 Mg Tablet 5 Mg PO DAILY Divalproex Sodium Er (Divalproex Sodium) 500 Mg Tab.er.24h 1,000 Mg PO HS Robitussin Cough-Chest Dm Liq (Guaifenesin/Dextromethorphan) 237 Ml Liquid 5 Ml PO PRN Q8HRS PRN Clonazepam 0.5 Mg Tablet 0.5 Mg PO PRN DAILY PRN Clonidine Hcl 0.2 Mg Tablet 0.2 Mg PO BIDWMEALS Aspirin 81 Mg Tab.chew 81 Mg PO DAILY Acetaminophen 500 Mg Tablet 500 Mg PO PRN Q6HRS PRN I have reviewed the current psychotropics carefully including drug interactions. Risk benefit ratio favors no change other than as noted in my dictated progress note. Diagnosis: Problems: (1) Altered mental status (2) Anxiety disorder (3) Psychosis, atypical (4) Major depressive disorder, recurrent episode (5) Mild cognitive impairment (6) Schizoaffective disorder, chronic condition with acute exacerbation JESSICA QUINTERO MD Jul 17, 2018 22:21
[2018-07-18] MEDS: LEVOTHYROXINE 100 MCG TABLET PO SCH (05:37)
[2018-07-18 05:51] VITALS: BP 138/88
[2018-07-18 07:49] LABS: BASO # 0.1 x10^3/uL (0.0-0.2); BASO % 1 % (0-3); EOS # 0.1 x10^3/uL (0.0-0.7); EOS % 2 % (0-3); HEMATOCRIT 41.3 % (39.0-53.0); HEMOGLOBIN 13.6 g/dL (13.0-17.5); LYMPH # 1.4 x10^3/uL (1.0-4.8); LYMPH % 26 % (24-48); MEAN CORPUSCULAR HEMOGLOBIN 31 pg (25-35); MEAN CORPUSCULAR HGB CONC 33 g/dL (31-37); MEAN CORPUSCULAR VOLUME 93 fL (79-100); MONO # 0.8 x10^3/uL (0.0-1.1); MONO % 15 % (0-9); NEUT # 3.1 x10^3uL (1.8-7.7); NEUT % 57 % (31-73); PLATELET COUNT 215 x10^3/uL (140-400); RED BLOOD COUNT 4.44 x10^6/uL (4.30-5.70); RED CELL DISTRIBUTION WIDTH 14.8 % (11.5-14.5); WHITE BLOOD COUNT 5.5 x10^3/uL (4.0-11.0)
[2018-07-18] MEDS: ASPIRIN 81 MG TAB.CHEW PO SCH (08:04)
[2018-07-18] MEDS: FUROSEMIDE 20 MG TABLET PO SCH (08:04)
[2018-07-18] MEDS: FINASTERIDE 5 MG TABLET PO SCH (08:04)
[2018-07-18] MEDS: PANTOPRAZOLE 40 MG TABLET. PO SCH (08:04)
[2018-07-18] MEDS: MELOXICAM 15 MG TABLET. PO SCH (08:04)
[2018-07-18] MEDS: cloNIDine HCL 0.2 MG TABLET PO SCH ×2 (08:04→17:11)
[2018-07-18 08:06] LABS: ALBUMIN 2.8 g/dL (3.4-5.0); ALBUMIN/GLOBULIN RATIO 0.7 (1.0-1.7); ALK PHOS 96 U/L (46-116); ALT (SGPT) 17 U/L (16-63); ANION GAP 6 (6-14); AST (SGOT) 12 U/L (15-37); BLOOD UREA NITROGEN 15 mg/dL (8-26); BUN/CREATININE RATIO 15 (6-20); CALCIUM 8.6 mg/dL (8.5-10.1); CARBON DIOXIDE 32 mmol/L (21-32); CHLORIDE 103 mmol/L (98-107); GFR 74.1; GLUCOSE 88 mg/dL (70-99); POTASSIUM 4.4 mmol/L (3.5-5.1); SODIUM 141 mmol/L (136-145); TOTAL BILIRUBIN 0.3 mg/dL (0.2-1.0); TOTAL PROTEIN 6.6 g/dL (6.4-8.2); VAL ACID 58 mcg/mL (50-100)
--- NOTE | 2018-07-18 08:20 | NUR ---
Behavior Intervention Response and Plan: BIRP Note: Behavior: Assumed Care of patient, patient located in Patient Room at shift change. Patient exhibited the following behavior Interactive, Disorganized, Hallucinating. Brief assessment on rounds of vital signs, medication needs, lab studies, and pain. Treatment plan problems 1 & 2. Intervention: Patient assessed and the following interventions initiated safety checks 15 Minute Checks Cognitive Assessment , Head to toe Assessment , Medications. Response: After interactions and interventions patient responded in the following manner, Calm , Appropriate ,Hallucinating. Continue to assess behaviors and condition will continue to monitor throughout the shift as needed. Patient educated on ADL's, and hand hygiene. Plan: Continue to monitor Master Treatment Plan for patient's progress toward short term goals of Medication Compliance, No harm To self/ others, intermodal customer service goals to return to previous living setting vs placement. Continue to assess patient for changes in above assessment. Monitor for medication needs, pain, and safety concerns. Hourly rounding performed to ensure safe environment.
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
[2018-07-18 16:07] VITALS: BP 128/77
[2018-07-18] MEDS: DIVALPROEX ER 250 MG TAB.ER.24H. PO SCH (19:18)
[2018-07-18] MEDS: HALOPERIDOL 10 MG/5 ML ORAL.CONC. PO SCH (19:21)
--- NOTE | 2018-07-18 20:10 | PN ---
DATE: 07/16/2018 PSYCHIATRIC PROGRESS NOTE This late entry 07/16/2018 covers elements not covered in my initial note. SUBJECTIVE: I met with the patient in the evening at length in his room. The patient slept 7-1/4 hours previous night. As I met with him at length in his room, he has talked about feeling the people are still around him and even though he cannot see them he can hear them and he can feel them rumbling under his bed. He is quite obsessive about it, feels those people are whistling at him and spray things on him. REVIEW OF SYSTEMS: No CV, , pulmonary, eye system symptoms on review. MENTAL STATUS EXAM: Oriented reasonably. Speech has some latency, coherent. Abstraction fair, computation impaired, language function intact, attention span short. Mood and affect somewhat withdrawn. LABORATORY DATA: Reviewed. The patient is quite obsessive in addition to being psychotic. IMPRESSION: Schizoaffective disorder, bipolar type, mixed with psychotic features; psychotic disorder, unspecified; cognitive disorder, unspecified, and nursing staff reported that he seems to forget things. For example, he complained of some hip pain and was taken down for an x-ray. When he reached there, he said he had not had any complaints at all. PLAN: Given his obsessive thought processes, we will change the Zoloft to Luvox 25 mg p.o. at bedtime and increase gradually. Continue rest unchanged including Haldol 2 mg at bedtime and with that we just added Risperdal Consta he was taking previously along with the Depakote, may need to adjust the Depakote dosage to reach therapeutic level. MAN Nathalie QUINTERO MD DR: VIV/prakash JOB#: [id number] / [id number]
--- NOTE | 2018-07-18 20:13 | PN ---
DATE: 07/17/2018 PSYCHIATRIC PROGRESS NOTE This late entry 07/17/2018 covers elements not covered in my initial note. SUBJECTIVE: I met with the patient in the evening. I met with him in his room. He slept 6-1/2 hours previous night, but he continues to have the obsessive thought processes and hallucinations as before including someone spraying things on him, moving under his bed, and touching him. I addressed this at length with them. REVIEW OF SYSTEMS: No CV, , pulmonary, eye, ENT system symptoms on review. MENTAL STATUS EXAM: Oriented reasonably. Speech is coherent, has some latency. Abstraction fair, computation impaired, language function intact, attention span short. Mood and affect somewhat withdrawn. LABORATORY DATA: Reviewed. IMPRESSION: Unchanged from initial note. PLAN: No change from initial note and we will gradually adjust the Luvox, which we have initiated in place of the Zoloft for his OCD symptoms. JESSICA QUINTERO MD DR: VIV/prakash JOB#: [id number] / [id number]
--- NOTE | 2018-07-18 22:38 | PDOC ---
Exam Note: Rick Note: Please also refer to the separate dictated note~for this date of service dictated separately.~Patient seen individually. Discussed the patient with Nursing staff reviewed the chart.~Reviewed interim history and current functioning. Reviewed vital signs,~Labs/ Radiology~and current medications noted below. Continue current treatment with the changes noted in the dictated addendum note Assessment: Vital Signs: Vital Signs Date Time Temp Pulse Resp B/P (MAP) Pulse Ox O2 Delivery O2 Flow Rate FiO2 07/18/18 17:11 55 128/77 07/18/18 16:07 98.4 16 95 Room Air I&O Intake and Output 07/18/18 07:00 Intake Total 1440 ml Balance 1440 ml Intake Oral 1440 ml # Voids 1 Labs: Laboratory Tests Test 07/18/18 07:30 White Blood Count 5.5 x10^3/uL (4.0-11.0) Red Blood Count 4.44 x10^6/uL (4.30-5.70) Hemoglobin 13.6 g/dL (13.0-17.5) Hematocrit 41.3 % (39.0-53.0) Mean Corpuscular Volume 93 fL (79-100) Mean Corpuscular Hemoglobin 31 pg (25-35) Mean Corpuscular Hemoglobin Concent 33 g/dL (31-37) Red Cell Distribution Width 14.8 % (11.5-14.5) H Platelet Count 215 x10^3/uL (140-400) Neutrophils (%) (Auto) 57 % (31-73) Lymphocytes (%) (Auto) 26 % (24-48) Monocytes (%) (Auto) 15 % (0-9) H Eosinophils (%) (Auto) 2 % (0-3) Basophils (%) (Auto) 1 % (0-3) Neutrophils # (Auto) 3.1 x10^3uL (1.8-7.7) Lymphocytes # (Auto) 1.4 x10^3/uL (1.0-4.8) Monocytes # (Auto) 0.8 x10^3/uL (0.0-1.1) Eosinophils # (Auto) 0.1 x10^3/uL (0.0-0.7) Basophils # (Auto) 0.1 x10^3/uL (0.0-0.2) Sodium Level 141 mmol/L (136-145) Potassium Level 4.4 mmol/L (3.5-5.1) Chloride Level 103 mmol/L (98-107) Carbon Dioxide Level 32 mmol/L (21-32) Anion Gap 6 (6-14) Blood Urea Nitrogen 15 mg/dL (8-26) Creatinine 1.0 mg/dL (0.7-1.3) Estimated GFR (Cockcroft-Gault) 74.1 BUN/Creatinine Ratio 15 (6-20) Glucose Level 88 mg/dL (70-99) Calcium Level 8.6 mg/dL (8.5-10.1) Total Bilirubin 0.3 mg/dL (0.2-1.0) Aspartate Amino Transferase (AST) 12 U/L (15-37) L Alanine Aminotransferase (ALT) 17 U/L (16-63) Alkaline Phosphatase 96 U/L (46-116) Total Protein 6.6 g/dL (6.4-8.2) Albumin 2.8 g/dL (3.4-5.0) L Albumin/Globulin Ratio 0.7 (1.0-1.7) L Valproic Acid Level 58 mcg/mL (50-100) Valproic Acid Last Dose Date 07/17/18 Valproic Acid Last Dose Time 2100 Current Medications: Meds: Current Medications Acetaminophen (Tylenol) 650 mg PRN Q6HRS PRN PO PAIN / TEMP; Start 07/13/18 at 21:00 Multi-Ingredient Ointment (Analgesic [place]) 1 kiara PRN QID PRN TP MUSCLE PAIN Last administered on 07/14/18at 11:30; Start 07/13/18 at 21:00 Al Hydroxide/Mg Hydroxide (Mylanta Plus Xs) 15 ml PRN AFTMEALHC PRN PO DYSPEPSIA; Start 07/13/18 at 21:00 Magnesium Hydroxide (Milk Of Magnesia) 2,400 mg PRN QHS PRN PO CONSTIPATION; Start 07/13/18 at 21:00 Clonazepam (KlonoPIN) 0.5 mg PRN DAILY PRN PO ANXIETY / AGITATION Last administered on 07/14/18at 07:54; Start 07/14/18 at 00:30 Furosemide (Lasix) 20 mg DAILY PO Last administered on 07/18/18at 08:04; Start 07/14/18 at 09:00 Levothyroxine Sodium (Synthroid) 100 mcg DAILYAC PO Last administered on at 07:53; Start 07/14/18 at 07:30; Stop 07/14/18 at 07:57; Status DC Risperidone (RisperDAL CONSTA) 50 mg Q2WKS IM ; Start 07/20/18 at 09:00 Sertraline HCl (Zoloft) 100 mg HS PO Last administered on 07/16/18at 19:44; Start 07/14/18 at 21:00; Stop 07/17/18 at 19:12; Status DC Acetaminophen (Tylenol) 500 mg PRN Q6HRS PRN PO MILD PAIN / TEMP; Start at 00:30 Aspirin (Children'S Aspirin) 81 mg DAILYWBKFT PO Last administered on at 08:04; Start 07/14/18 at 08:00 Clonidine HCl (Catapres) 0.2 mg BIDWMEALS PO Last administered on 07/18/18at 17: 11; Start 07/14/18 at 08:00 Divalproex Sodium (Depakote Er) 1,000 mg QHS PO Last administered on 07/14/18 19:33; Start 07/14/18 at 21:00; Stop 07/15/18 at 19:35; Status DC Finasteride (Proscar) 5 mg DAILY PO Last administered on 07/18/18at 08:04; Start 07/14/18 at 09:00 Guaifenesin (Robitussin Dm) 5 ml PRN Q8HRS PRN PO COUGH; Start 07/14/18 at 00: 30 Non-Formulary Medication (Menthol (Biofreeze)) 1 kiara QIDPRN PRN TP PAIN; Start 07/14/18 at 00:30; Status UNV Pantoprazole Sodium (Protonix) 40 mg DAILYAC PO Last administered on 07/18/18at 08:04; Start 07/14/18 at 07:30 Levothyroxine Sodium (Synthroid) 100 mcg DAILY06 PO Last administered on at 05:37; Start 07/15/18 at 06:00 Risperidone (RisperDAL CONSTA) 50 mg Q2WKS IM ; Start 07/20/18 at 09:00; Stop at 09:00; Status DC Meloxicam (Mobic) 15 mg DAILY PO Last administered on 07/18/18at 08:04; Start at 09:00 Divalproex Sodium (Depakote Er) 1,250 mg QHS PO Last administered on 07/18/18at 19:18; Start 07/15/18 at 21:00 Haloperidol (Haldol) 2 mg HS PO ; Start 07/15/18 at 21:00; Stop 07/15/18 at 21: 00; Status DC Haloperidol Lactate (HALDOL 10mg ORAL CONC) 2 mg HS PO Last administered on at 19:21; Start 07/15/18 at 21:00 Fluvoxamine Maleate (Luvox) 25 mg HS PO Last administered on 07/18/18at 19:18; Start 07/17/18 at 21:00; Stop 07/20/18 at 20:59 Fluvoxamine Maleate (Luvox) 50 mg HS PO ; Start 07/20/18 at 21:00 Active Scripts Active Reported Zoloft (Sertraline Hcl) 100 Mg Tablet 100 Mg PO HS Risperdal Consta (Risperidone Microspheres) 50 Mg/2 Ml Disp.syrin 50 Mg IM Q2WKS Prilosec Otc (Omeprazole Magnesium) 20 Mg Tablet.dr 40 Mg PO DAILY Biofreeze (Menthol) 118 Ml Gel..ml. 1 Kiara TP QIDPRN PRN Synthroid (Levothyroxine Sodium) 100 Mcg Tablet 100 Mcg PO DAILYAC Lasix (Furosemide) 20 Mg Tablet 20 Mg PO DAILY Finasteride 5 Mg Tablet 5 Mg PO DAILY Divalproex Sodium Er (Divalproex Sodium) 500 Mg Tab.er.24h 1,000 Mg PO HS Robitussin Cough-Chest Dm Liq (Guaifenesin/Dextromethorphan) 237 Ml Liquid 5 Ml PO PRN Q8HRS PRN Clonazepam 0.5 Mg Tablet 0.5 Mg PO PRN DAILY PRN Clonidine Hcl 0.2 Mg Tablet 0.2 Mg PO BIDWMEALS Aspirin 81 Mg Tab.chew 81 Mg PO DAILY Acetaminophen 500 Mg Tablet 500 Mg PO PRN Q6HRS PRN I have reviewed the current psychotropics carefully including drug interactions. Risk benefit ratio favors no change other than as noted in my dictated progress note. Diagnosis: Problems: (1) Altered mental status (2) Anxiety disorder (3) Psychosis, atypical (4) Major depressive disorder, recurrent episode (5) Mild cognitive impairment (6) Schizoaffective disorder, chronic condition with acute exacerbation JESSICA QUINTERO MD Jul 18, 2018 22:38
[2018-07-19] MEDS: LEVOTHYROXINE 100 MCG TABLET PO SCH (05:17)
[2018-07-19 05:43] VITALS: BP 145/91
[2018-07-19] MEDS: FUROSEMIDE 20 MG TABLET PO SCH (08:03)
[2018-07-19] MEDS: FINASTERIDE 5 MG TABLET PO SCH (08:03)
[2018-07-19] MEDS: ASPIRIN 81 MG TAB.CHEW PO SCH (08:03)
[2018-07-19] MEDS: cloNIDine HCL 0.2 MG TABLET PO SCH ×2 (08:03→17:24)
[2018-07-19] MEDS: PANTOPRAZOLE 40 MG TABLET. PO SCH (08:03)
[2018-07-19] MEDS: MELOXICAM 15 MG TABLET. PO SCH (08:03)
--- NOTE | 2018-07-19 14:00 | NUR ---
WEEKLY ACTIVITY THERAPY NOTE Date of Admission: 07/13/2018 Date of AT Assessment: 07/16/2018 Goal aimed:to increase engagement Initial goal: Pt. will participate in at least one Activity Therapy group per day. Weekly progress towards goal: did not achieve Group participation level: minimal Behaviors observed: in room most of the time, sleeps often, pleasant Plan: no change to goal
--- NOTE | 2018-07-19 14:59 | NUR ---
WEEKLY NOTE: Pt is doing well on the unit. Pt attends groups at times, but is mostly withdrawn to his room. Pt is eating and sleeping well, and appears to be talking with the psychiatrist about his thoughts (delusions/hallucinations). Pt wants to make sure his medications are corrected as this is "a second opinion" as his first hospitalization did not go well at [facility] in [place]. SW will continue to work with pt and pt son in discharge planning; CLAIRE 10 days.
[2018-07-19 15:15] VITALS: BP 115/75
[2018-07-19] MEDS: HALOPERIDOL 10 MG/5 ML ORAL.CONC. PO SCH (19:14)
[2018-07-19] MEDS: DIVALPROEX ER 250 MG TAB.ER.24H. PO SCH (19:14)
--- NOTE | 2018-07-19 20:20 | NUR ---
Behavior Intervention Response and Plan: BIRP Note: Behavior: Assumed Care of patient, patient located in Patient Room at shift change. Patient exhibited the following behavior Calm, Social, Cooperative. Brief assessment on rounds of vital signs, medication needs, lab studies, and pain. Treatment plan problems . Intervention: Patient assessed and the following interventions initiated safety checks 15 Minute Checks Cognitive Assessment , Head to toe Assessment , Medications. Response: After interactions and interventions patient responded in the following manner, Drowsy , Calm ,Withdrawn. Continue to assess behaviors and condition will continue to monitor throughout the shift as needed. Patient educated on ADL's, and hand hygiene. Plan: Continue to monitor Master Treatment Plan for patient's progress toward short term goals of No harm To self/ others, Decreased Anxiety, halfway goals to return to previous living setting vs placement. Continue to assess patient for changes in above assessment. Monitor for medication needs, pain, and safety concerns. Hourly rounding performed to ensure safe environment.
--- NOTE | 2018-07-19 22:00 | PN ---
DATE: 07/18/2018 PSYCHIATRIC PROGRESS NOTE This late entry 07/18/2018 covers elements, not covered in my initial note. SUBJECTIVE: I met with the patient in the evening at some length. The patient slept 6-1/2 hours previous night. Valproic acid level was 58 on Depakote ER 1250 mg p.o. at bedtime. The patient still complains of active hallucinations, auditory, questionably visual, tactile. Believes the same people are throwing things on him, talking to him, disturbing him. Reviewed his history at length. REVIEW OF SYSTEMS: No CV, , pulmonary, eye system symptoms on review. MENTAL STATUS EXAM: Oriented to himself and situation. Speech is coherent, has some latency. Abstraction fair, computation impaired, language function intact. Attention span short. Short term memory has some mild impairment, but he is reasonably oriented. No active suicidal or homicidal ideation. LABORATORY DATA: Reviewed. IMPRESSION: Psychotic disorder, unspecified; cognitive disorder, unspecified; major depressive disorder with psychotic features; schizoaffective disorder, bipolar type, mixed with psychotic features. PLAN: We will gather further historical information from the family. Onset of symptoms has been more recent drugs and lifelong are going somewhat against his schizoaffective disorder diagnosis and he does have some mild short term memory deficits, at times minimal. We will continue his current psychotropics. Depakote level is therapeutic, may need to increase Haldol in due course if psychotic symptoms persist. Rest unchanged. MAN Nathalie QUINTERO MD DR: VIV/prakash JOB#: [id number] / [id number]
--- NOTE | 2018-07-19 22:14 | PDOC ---
Exam Note: Rick Note: Please also refer to the separate dictated note~for this date of service dictated separately.~Patient seen individually. Discussed the patient with Nursing staff reviewed the chart.~Reviewed interim history and current functioning. Reviewed vital signs,~Labs/ Radiology~and current medications noted below. Continue current treatment with the changes noted in the dictated addendum note Assessment: Vital Signs: Vital Signs Date Time Temp Pulse Resp B/P (MAP) Pulse Ox O2 Delivery O2 Flow Rate FiO2 07/19/18 17:24 80 115/75 07/19/18 15:15 97.6 18 98 07/19/18 05:43 Room Air I&O Intake and Output 07/19/18 07:00 Intake Total 2040 ml Balance 2040 ml Intake Oral 2040 ml Current Medications: Meds: Current Medications Acetaminophen (Tylenol) 650 mg PRN Q6HRS PRN PO PAIN / TEMP; Start 07/13/18 at 21:00; Status Cancel Multi-Ingredient Ointment (Analgesic [place]) 1 kiara PRN QID PRN TP MUSCLE PAIN Last administered on 07/14/18at 11:30; Start 07/13/18 at 21:00 Al Hydroxide/Mg Hydroxide (Mylanta Plus Xs) 15 ml PRN AFTMEALHC PRN PO DYSPEPSIA; Start 07/13/18 at 21:00 Magnesium Hydroxide (Milk Of Magnesia) 2,400 mg PRN QHS PRN PO CONSTIPATION; Start 07/13/18 at 21:00 Clonazepam (KlonoPIN) 0.5 mg PRN DAILY PRN PO ANXIETY / AGITATION Last administered on 07/14/18 07:54; Start 07/14/18 at 00:30 Furosemide (Lasix) 20 mg DAILY PO Last administered on 07/19/18at 08:03; Start 07/14/18 at 09:00; Stop 07/19/18 at 19:00; Status DC Levothyroxine Sodium (Synthroid) 100 mcg DAILYAC PO Last administered on 07:53; Start 07/14/18 at 07:30; Stop 07/14/18 at 07:57; Status DC Risperidone (RisperDAL CONSTA) 50 mg Q2WKS IM ; Start 07/20/18 at 09:00 Sertraline HCl (Zoloft) 100 mg HS PO Last administered on 07/16/18 19:44; Start 07/14/18 at 21:00; Stop 07/17/18 at 19:12; Status DC Acetaminophen (Tylenol) 500 mg PRN Q6HRS PRN PO MILD PAIN / TEMP; Start at 00:30 Aspirin (Children'S Aspirin) 81 mg DAILYWBKFT PO Last administered on 08:03; Start 07/14/18 at 08:00 Clonidine HCl (Catapres) 0.2 mg BIDWMEALS PO Last administered on 07/19/18 17: 24; Start 07/14/18 at 08:00 Divalproex Sodium (Depakote Er) 1,000 mg QHS PO Last administered on 07/14/18 19:33; Start 07/14/18 at 21:00; Stop 07/15/18 at 19:35; Status DC Finasteride (Proscar) 5 mg DAILY PO Last administered on 07/19/18 08:03; Start 07/14/18 at 09:00 Guaifenesin (Robitussin Dm) 5 ml PRN Q8HRS PRN PO COUGH; Start 07/14/18 at 00: 30 Non-Formulary Medication (Menthol (Biofreeze)) 1 kiara QIDPRN PRN TP PAIN; Start 07/14/18 at 00:30; Status UNV Pantoprazole Sodium (Protonix) 40 mg DAILYAC PO Last administered on 07/19/18 08:03; Start 07/14/18 at 07:30 Levothyroxine Sodium (Synthroid) 100 mcg DAILY06 PO Last administered on 05:17; Start 07/15/18 at 06:00 Risperidone (RisperDAL CONSTA) 50 mg Q2WKS IM ; Start 07/20/18 at 09:00; Stop at 09:00; Status DC Meloxicam (Mobic) 15 mg DAILY PO Last administered on 07/19/18at 08:03; Start at 09:00 Divalproex Sodium (Depakote Er) 1,250 mg QHS PO Last administered on 07/19/18 19:14; Start 07/15/18 at 21:00 Haloperidol (Haldol) 2 mg HS PO ; Start 07/15/18 at 21:00; Stop 07/15/18 at 21: 00; Status DC Haloperidol Lactate (HALDOL 10mg ORAL CONC) 2 mg HS PO Last administered on at 19:14; Start 07/15/18 at 21:00 Fluvoxamine Maleate (Luvox) 25 mg HS PO Last administered on 07/19/18at 19:14; Start 07/17/18 at 21:00; Stop 07/20/18 at 20:59 Fluvoxamine Maleate (Luvox) 50 mg HS PO ; Start 07/20/18 at 21:00 Furosemide (Lasix) 40 mg DAILY PO ; Start 07/20/18 at 09:00 Active Scripts Active Reported Zoloft (Sertraline Hcl) 100 Mg Tablet 100 Mg PO HS Risperdal Consta (Risperidone Microspheres) 50 Mg/2 Ml Disp.syrin 50 Mg IM Q2WKS Prilosec Otc (Omeprazole Magnesium) 20 Mg Tablet.dr 40 Mg PO DAILY Biofreeze (Menthol) 118 Ml Gel..ml. 1 Kiara TP QIDPRN PRN Synthroid (Levothyroxine Sodium) 100 Mcg Tablet 100 Mcg PO DAILYAC Lasix (Furosemide) 20 Mg Tablet 20 Mg PO DAILY Finasteride 5 Mg Tablet 5 Mg PO DAILY Divalproex Sodium Er (Divalproex Sodium) 500 Mg Tab.er.24h 1,000 Mg PO HS Robitussin Cough-Chest Dm Liq (Guaifenesin/Dextromethorphan) 237 Ml Liquid 5 Ml PO PRN Q8HRS PRN Clonazepam 0.5 Mg Tablet 0.5 Mg PO PRN DAILY PRN Clonidine Hcl 0.2 Mg Tablet 0.2 Mg PO BIDWMEALS Aspirin 81 Mg Tab.chew 81 Mg PO DAILY Acetaminophen 500 Mg Tablet 500 Mg PO PRN Q6HRS PRN I have reviewed the current psychotropics carefully including drug interactions. Risk benefit ratio favors no change other than as noted in my dictated progress note. Diagnosis: Problems: (1) Altered mental status (2) Anxiety disorder (3) Psychosis, atypical (4) Major depressive disorder, recurrent episode (5) Mild cognitive impairment (6) Schizoaffective disorder, chronic condition with acute exacerbation JESSICA QUINTERO MD Jul 19, 2018 22:14
[2018-07-20] MEDS: LEVOTHYROXINE 100 MCG TABLET PO SCH (05:44)
[2018-07-20 06:03] VITALS: BP 143/84
[2018-07-20] MEDS: FINASTERIDE 5 MG TABLET PO SCH (08:29)
[2018-07-20] MEDS: cloNIDine HCL 0.2 MG TABLET PO SCH ×2 (08:29→17:17)
[2018-07-20] MEDS: MELOXICAM 15 MG TABLET. PO SCH (08:29)
[2018-07-20] MEDS: PANTOPRAZOLE 40 MG TABLET. PO SCH (08:30)
[2018-07-20] MEDS: ASPIRIN 81 MG TAB.CHEW PO SCH (08:30)
[2018-07-20] MEDS: FUROSEMIDE 40 MG TABLET PO SCH (08:32)
[2018-07-20] MEDS ORDERED: risperiDONE MICROSPHERES 50 MG/2 ML DISP.SYRIN. IM SCH ×2 (09:00)
--- NOTE | 2018-07-20 11:35 | NUR ---
JOSE MANUEL left a message for the [place] police department re: pt request to file a report for items stolen from his storage unit and requested a call back to discuss the process. JOSE MANUEL also attempted to contact pt son Ben to discuss this and a few other concerns related to discharge planning.
[2018-07-20 15:59] VITALS: BP 143/90
[2018-07-20] MEDS: DIVALPROEX ER 250 MG TAB.ER.24H. PO SCH (19:21)
[2018-07-20] MEDS: HALOPERIDOL 5 MG TABLET PO SCH (20:48)
--- NOTE | 2018-07-20 22:09 | PDOC ---
Exam Note: Rick Note: Please also refer to the separate dictated note~for this date of service dictated separately.~Patient seen individually. Discussed the patient with Nursing staff reviewed the chart.~Reviewed interim history and current functioning. Reviewed vital signs,~Labs/ Radiology~and current medications noted below. Continue current treatment with the changes noted in the dictated addendum note Assessment: Vital Signs: Vital Signs Date Time Temp Pulse Resp B/P (MAP) Pulse Ox O2 Delivery O2 Flow Rate FiO2 07/20/18 17:17 56 143/90 07/20/18 15:59 98.1 17 100 07/19/18 05:43 Room Air I&O Intake and Output 07/20/18 07:00 Intake Total 2280 ml Balance 2280 ml Intake Oral 2280 ml Current Medications: Meds: Current Medications Acetaminophen (Tylenol) 650 mg PRN Q6HRS PRN PO PAIN / TEMP; Start 07/13/18 at 21:00; Status Cancel Multi-Ingredient Ointment (Analgesic [place]) 1 kiara PRN QID PRN TP MUSCLE PAIN Last administered on 07/14/18at 11:30; Start 07/13/18 at 21:00 Al Hydroxide/Mg Hydroxide (Mylanta Plus Xs) 15 ml PRN AFTMEALHC PRN PO DYSPEPSIA; Start 07/13/18 at 21:00 Magnesium Hydroxide (Milk Of Magnesia) 2,400 mg PRN QHS PRN PO CONSTIPATION; Start 07/13/18 at 21:00 Clonazepam (KlonoPIN) 0.5 mg PRN DAILY PRN PO ANXIETY / AGITATION Last administered on 07/14/18at 07:54; Start 07/14/18 at 00:30 Furosemide (Lasix) 20 mg DAILY PO Last administered on 07/19/18 08:03; Start 07/14/18 at 09:00; Stop 07/19/18 at 19:00; Status DC Levothyroxine Sodium (Synthroid) 100 mcg DAILYAC PO Last administered on 07:53; Start 07/14/18 at 07:30; Stop 07/14/18 at 07:57; Status DC Risperidone (RisperDAL CONSTA) 50 mg Q2WKS IM Last administered on 07/20/18at 08 :32; Start 07/20/18 at 09:00 Sertraline HCl (Zoloft) 100 mg HS PO Last administered on 07/16/18 19:44; Start 07/14/18 at 21:00; Stop 07/17/18 at 19:12; Status DC Acetaminophen (Tylenol) 500 mg PRN Q6HRS PRN PO MILD PAIN / TEMP; Start at 00:30 Aspirin (Children'S Aspirin) 81 mg DAILYWBKFT PO Last administered on 08:30; Start 07/14/18 at 08:00 Clonidine HCl (Catapres) 0.2 mg BIDWMEALS PO Last administered on 07/20/18 17: 17; Start 07/14/18 at 08:00 Divalproex Sodium (Depakote Er) 1,000 mg QHS PO Last administered on 07/14/18 19:33; Start 07/14/18 at 21:00; Stop 07/15/18 at 19:35; Status DC Finasteride (Proscar) 5 mg DAILY PO Last administered on 07/20/18 08:29; Start 07/14/18 at 09:00 Guaifenesin (Robitussin Dm) 5 ml PRN Q8HRS PRN PO COUGH; Start 07/14/18 at 00: 30 Non-Formulary Medication (Menthol (Biofreeze)) 1 kiara QIDPRN PRN TP PAIN; Start 07/14/18 at 00:30; Status UNV Pantoprazole Sodium (Protonix) 40 mg DAILYAC PO Last administered on 07/20/18 08:30; Start 07/14/18 at 07:30 Levothyroxine Sodium (Synthroid) 100 mcg DAILY06 PO Last administered on at 05:44; Start 07/15/18 at 06:00 Risperidone (RisperDAL CONSTA) 50 mg Q2WKS IM ; Start 07/20/18 at 09:00; Stop at 09:00; Status DC Meloxicam (Mobic) 15 mg DAILY PO Last administered on 07/20/18 08:29; Start at 09:00 Divalproex Sodium (Depakote Er) 1,250 mg QHS PO Last administered on 07/20/18 19:21; Start 07/15/18 at 21:00 Haloperidol (Haldol) 2 mg HS PO ; Start 07/15/18 at 21:00; Stop 07/15/18 at 21: 00; Status DC Haloperidol Lactate (HALDOL 10mg ORAL CONC) 2 mg HS PO Last administered on at 19:14; Start 07/15/18 at 21:00; Stop 07/20/18 at 18:42; Status DC Fluvoxamine Maleate (Luvox) 25 mg HS PO Last administered on 07/19/18at 19:14; Start 07/17/18 at 21:00; Stop 07/20/18 at 20:59; Status DC Fluvoxamine Maleate (Luvox) 50 mg HS PO Last administered on 07/20/18at 19:20; Start 07/20/18 at 21:00 Furosemide (Lasix) 40 mg DAILY PO Last administered on 07/20/18at 08:32; Start 07/20/18 at 09:00 Haloperidol (Haldol) 5 mg HS PO Last administered on 07/20/18at 20:48; Start at 21:00 Active Scripts Active Reported Zoloft (Sertraline Hcl) 100 Mg Tablet 100 Mg PO HS Risperdal Consta (Risperidone Microspheres) 50 Mg/2 Ml Disp.syrin 50 Mg IM Q2WKS Prilosec Otc (Omeprazole Magnesium) 20 Mg Tablet.dr 40 Mg PO DAILY Biofreeze (Menthol) 118 Ml Gel..ml. 1 Kiara TP QIDPRN PRN Synthroid (Levothyroxine Sodium) 100 Mcg Tablet 100 Mcg PO DAILYAC Lasix (Furosemide) 20 Mg Tablet 20 Mg PO DAILY Finasteride 5 Mg Tablet 5 Mg PO DAILY Divalproex Sodium Er (Divalproex Sodium) 500 Mg Tab.er.24h 1,000 Mg PO HS Robitussin Cough-Chest Dm Liq (Guaifenesin/Dextromethorphan) 237 Ml Liquid 5 Ml PO PRN Q8HRS PRN Clonazepam 0.5 Mg Tablet 0.5 Mg PO PRN DAILY PRN Clonidine Hcl 0.2 Mg Tablet 0.2 Mg PO BIDWMEALS Aspirin 81 Mg Tab.chew 81 Mg PO DAILY Acetaminophen 500 Mg Tablet 500 Mg PO PRN Q6HRS PRN I have reviewed the current psychotropics carefully including drug interactions. Risk benefit ratio favors no change other than as noted in my dictated progress note. Diagnosis: Problems: (1) Altered mental status (2) Anxiety disorder (3) Psychosis, atypical (4) Major depressive disorder, recurrent episode (5) Mild cognitive impairment (6) Schizoaffective disorder, chronic condition with acute exacerbation JESSICA QUINTERO MD Jul 20, 2018 22:09
--- NOTE | 2018-07-20 23:59 | NUR ---
Nursing Note Pt tells me he hears a man whistling in his ear, that he sprays chemicals on his head and threatens to kill him. He said he knows who the man is, but cannot for the life of him figure out how he has made himself invisible and able to whistle in his ear. States he is scared to of this man, and that the symptoms are better but far far from gone. He said that he hears this man every other day sometimes daily.
[2018-07-21] MEDS: LEVOTHYROXINE 100 MCG TABLET PO SCH (05:45)
[2018-07-21 06:14] VITALS: BP 126/74
[2018-07-21] MEDS: PANTOPRAZOLE 40 MG TABLET. PO SCH (08:10)
[2018-07-21] MEDS: MELOXICAM 15 MG TABLET. PO SCH (08:10)
[2018-07-21] MEDS: FINASTERIDE 5 MG TABLET PO SCH (08:10)
[2018-07-21] MEDS: ASPIRIN 81 MG TAB.CHEW PO SCH (08:10)
[2018-07-21] MEDS: FUROSEMIDE 40 MG TABLET PO SCH (08:10)
[2018-07-21] MEDS: cloNIDine HCL 0.2 MG TABLET PO SCH ×2 (08:11→17:05)
--- NOTE | 2018-07-21 08:30 | NUR ---
Behavior Intervention Response and Plan: BIRP Note: Behavior: Assumed Care of patient, patient located in Patient Room at shift change. Patient exhibited the following behavior Interactive, Disorganized, Hallucinating. Brief assessment on rounds of vital signs, medication needs, lab studies, and pain. Treatment plan problems 1 & 2. Intervention: Patient assessed and the following interventions initiated safety checks 15 Minute Checks Cognitive Assessment , Head to toe Assessment , Medications. Response: After interactions and interventions patient responded in the following manner, Calm , Appropriate ,Hallucinating. Continue to assess behaviors and condition will continue to monitor throughout the shift as needed. Patient educated on ADL's, and hand hygiene. 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 Continue to assess patient for changes in above assessment. Monitor for medication needs, pain, and safety concerns. Hourly rounding performed to ensure safe environment.
--- NOTE | 2018-07-21 10:16 | PN ---
DATE: 07/19/2018 PSYCHIATRIC PROGRESS NOTE This late entry 07/19/2018 covers elements not covered in my initial note. SUBJECTIVE: I met with the patient in the evening and staffed at a treatment team meeting with the entire team earlier in the day. The patient slept 7 hours previous night. Appetite 100%. The patient was also staffed at a treatment team meeting with the entire team. Reviewed his past history of treatment at the [facility] and [facility]. He is still paranoid, talked at length individually in the evening to me about ongoing auditory and visual hallucinations, even tactile hallucinations, feeling the people are spitting and throwing things on him. CT head in the past has shown some microvascular changes. He does have some short-term memory deficits, but reasonably oriented. REVIEW OF SYSTEMS: No CV, , pulmonary, eye system symptoms on review. MENTAL STATUS EXAM: Reasonably oriented. Speech is coherent, abstraction fair, computation impaired, language function intact, attention span short. Mood and affect is improved. No suicidal ideation. LABORATORY DATA: Reviewed. IMPRESSION: Psychotic disorder, unspecified; cognitive disorder, unspecified; probable schizoaffective disorder, bipolar type. Rest unchanged. PLAN: No change from initial note, but if psychotic symptoms persists, we will increase the Haldol and if obsessiveness does not respond adequately to current Luvox dosage, we will increase it gradually. MAN Nathalie QUINTERO MD DR: VIV/prakash JOB#: [id number] / [id number]
[2018-07-21 15:54] VITALS: BP 138/79
[2018-07-21] MEDS: HALOPERIDOL 5 MG TABLET PO SCH (19:24)
[2018-07-21] MEDS: DIVALPROEX ER 250 MG TAB.ER.24H. PO SCH (19:26)
--- NOTE | 2018-07-21 20:14 | PN ---
DATE: 07/20/2018 PSYCHIATRIC PROGRESS NOTE This late entry 07/20/2018 covers elements not covered in my initial note. SUBJECTIVE: I met with the patient in the evening. The patient slept 7 hours previous night. He still continues to have hallucinations as before and believes the people that have followed him here are throwing things on him and moving his bed at night. I processed this with him individually at some length in the evening. REVIEW OF SYSTEMS: No CV, , pulmonary, eye, ENT system symptoms on review. MENTAL STATUS EXAM: Reasonably oriented. Speech coherent, abstraction fair, computation impaired, language function intact, attention span short. Mood and affect somewhat withdrawn at times. LABORATORY DATA: Reviewed. IMPRESSION: Unchanged from initial note. PLAN: Increase Haldol from 2 mg at bedtime to 5 mg at bedtime. Continue rest of the psychotropics including Depakote level therapeutic at 58. MAN Nathalie QUINTERO MD DR: VIV/prakash JOB#: [id number] / [id number]
--- NOTE | 2018-07-21 21:48 | NUR ---
Nursing Note, Pt is still having tactile hallucinations that chemicals are being poured or sprayed on his head. Thinks it is less than it was but still irritating.
--- NOTE | 2018-07-21 22:35 | PDOC ---
Exam Note: Rick Note: Please also refer to the separate dictated note~for this date of service dictated separately.~Patient seen individually. Discussed the patient with Nursing staff reviewed the chart.~Reviewed interim history and current functioning. Reviewed vital signs,~Labs/ Radiology~and current medications noted below. Continue current treatment with the changes noted in the dictated addendum note Assessment: Vital Signs: Vital Signs Date Time Temp Pulse Resp B/P (MAP) Pulse Ox O2 Delivery O2 Flow Rate FiO2 07/21/18 17:05 71 138/79 07/21/18 15:54 97.7 20 96 07/21/18 06:14 Room Air I&O Intake and Output 07/21/18 07:00 Intake Total 1200 ml Balance 1200 ml Intake Oral 1200 ml # Voids 1 Current Medications: Meds: Current Medications Acetaminophen (Tylenol) 650 mg PRN Q6HRS PRN PO PAIN / TEMP; Start 07/13/18 at 21:00; Status Cancel Multi-Ingredient Ointment (Analgesic [place]) 1 kiara PRN QID PRN TP MUSCLE PAIN Last administered on 07/14/18at 11:30; Start 07/13/18 at 21:00 Al Hydroxide/Mg Hydroxide (Mylanta Plus Xs) 15 ml PRN AFTMEALHC PRN PO DYSPEPSIA; Start 07/13/18 at 21:00 Magnesium Hydroxide (Milk Of Magnesia) 2,400 mg PRN QHS PRN PO CONSTIPATION; Start 07/13/18 at 21:00 Clonazepam (KlonoPIN) 0.5 mg PRN DAILY PRN PO ANXIETY / AGITATION Last administered on 07/14/18at 07:54; Start 07/14/18 at 00:30 Furosemide (Lasix) 20 mg DAILY PO Last administered on 07/19/18 08:03; Start 07/14/18 at 09:00; Stop 07/19/18 at 19:00; Status DC Levothyroxine Sodium (Synthroid) 100 mcg DAILYAC PO Last administered on 07:53; Start 07/14/18 at 07:30; Stop 07/14/18 at 07:57; Status DC Risperidone (RisperDAL CONSTA) 50 mg Q2WKS IM Last administered on 07/20/18at 08 :32; Start 07/20/18 at 09:00 Sertraline HCl (Zoloft) 100 mg HS PO Last administered on 07/16/18 19:44; Start 07/14/18 at 21:00; Stop 07/17/18 at 19:12; Status DC Acetaminophen (Tylenol) 500 mg PRN Q6HRS PRN PO MILD PAIN / TEMP; Start at 00:30 Aspirin (Children'S Aspirin) 81 mg DAILYWBKFT PO Last administered on 08:10; Start 07/14/18 at 08:00 Clonidine HCl (Catapres) 0.2 mg BIDWMEALS PO Last administered on 07/21/18 17: 05; Start 07/14/18 at 08:00 Divalproex Sodium (Depakote Er) 1,000 mg QHS PO Last administered on 07/14/18 19:33; Start 07/14/18 at 21:00; Stop 07/15/18 at 19:35; Status DC Finasteride (Proscar) 5 mg DAILY PO Last administered on 07/21/18 08:10; Start 07/14/18 at 09:00 Guaifenesin (Robitussin Dm) 5 ml PRN Q8HRS PRN PO COUGH; Start 07/14/18 at 00: 30 Non-Formulary Medication (Menthol (Biofreeze)) 1 kiara QIDPRN PRN TP PAIN; Start 07/14/18 at 00:30; Status UNV Pantoprazole Sodium (Protonix) 40 mg DAILYAC PO Last administered on 07/21/18 08:10; Start 07/14/18 at 07:30 Levothyroxine Sodium (Synthroid) 100 mcg DAILY06 PO Last administered on 05:45; Start 07/15/18 at 06:00 Risperidone (RisperDAL CONSTA) 50 mg Q2WKS IM ; Start 07/20/18 at 09:00; Stop at 09:00; Status DC Meloxicam (Mobic) 15 mg DAILY PO Last administered on 07/21/18 08:10; Start at 09:00 Divalproex Sodium (Depakote Er) 1,250 mg QHS PO Last administered on 07/21/18 19:26; Start 07/15/18 at 21:00 Haloperidol (Haldol) 2 mg HS PO ; Start 07/15/18 at 21:00; Stop 07/15/18 at 21: 00; Status DC Haloperidol Lactate (HALDOL 10mg ORAL CONC) 2 mg HS PO Last administered on at 19:14; Start 07/15/18 at 21:00; Stop 07/20/18 at 18:42; Status DC Fluvoxamine Maleate (Luvox) 25 mg HS PO Last administered on 07/19/18at 19:14; Start 07/17/18 at 21:00; Stop 07/20/18 at 20:59; Status DC Fluvoxamine Maleate (Luvox) 50 mg HS PO Last administered on 07/21/18at 19:24; Start 07/20/18 at 21:00 Furosemide (Lasix) 40 mg DAILY PO Last administered on 07/21/18at 08:10; Start 07/20/18 at 09:00 Haloperidol (Haldol) 5 mg HS PO Last administered on 07/21/18at 19:24; Start at 21:00 Active Scripts Active Reported Zoloft (Sertraline Hcl) 100 Mg Tablet 100 Mg PO HS Risperdal Consta (Risperidone Microspheres) 50 Mg/2 Ml Disp.syrin 50 Mg IM Q2WKS Prilosec Otc (Omeprazole Magnesium) 20 Mg Tablet.dr 40 Mg PO DAILY Biofreeze (Menthol) 118 Ml Gel..ml. 1 Kiara TP QIDPRN PRN Synthroid (Levothyroxine Sodium) 100 Mcg Tablet 100 Mcg PO DAILYAC Lasix (Furosemide) 20 Mg Tablet 20 Mg PO DAILY Finasteride 5 Mg Tablet 5 Mg PO DAILY Divalproex Sodium Er (Divalproex Sodium) 500 Mg Tab.er.24h 1,000 Mg PO HS Robitussin Cough-Chest Dm Liq (Guaifenesin/Dextromethorphan) 237 Ml Liquid 5 Ml PO PRN Q8HRS PRN Clonazepam 0.5 Mg Tablet 0.5 Mg PO PRN DAILY PRN Clonidine Hcl 0.2 Mg Tablet 0.2 Mg PO BIDWMEALS Aspirin 81 Mg Tab.chew 81 Mg PO DAILY Acetaminophen 500 Mg Tablet 500 Mg PO PRN Q6HRS PRN I have reviewed the current psychotropics carefully including drug interactions. Risk benefit ratio favors no change other than as noted in my dictated progress note. Diagnosis: Problems: (1) Altered mental status (2) Anxiety disorder (3) Psychosis, atypical (4) Major depressive disorder, recurrent episode (5) Mild cognitive impairment (6) Schizoaffective disorder, chronic condition with acute exacerbation JESSICA QUINTERO MD Jul 21, 2018 22:35
[2018-07-22] MEDS: LEVOTHYROXINE 100 MCG TABLET PO SCH (04:23)
[2018-07-22 06:53] VITALS: BP 137/82
[2018-07-22] MEDS: cloNIDine HCL 0.2 MG TABLET PO SCH ×2 (08:14→16:51)
[2018-07-22] MEDS: MELOXICAM 15 MG TABLET. PO SCH (08:14)
[2018-07-22] MEDS: FUROSEMIDE 40 MG TABLET PO SCH (08:14)
[2018-07-22] MEDS: FINASTERIDE 5 MG TABLET PO SCH (08:14)
[2018-07-22] MEDS: PANTOPRAZOLE 40 MG TABLET. PO SCH (08:14)
[2018-07-22] MEDS: ASPIRIN 81 MG TAB.CHEW PO SCH (08:14)
--- NOTE | 2018-07-22 08:15 | NUR ---
Behavior Intervention Response and Plan: BIRP Note: Behavior: Assumed Care of patient, patient located in Patient Room at shift change. Patient exhibited the following behavior Interactive, Disorganized, Hallucinating. Brief assessment on rounds of vital signs, medication needs, lab studies, and pain. Treatment plan problems 1 & 2. Intervention: Patient assessed and the following interventions initiated safety checks 15 Minute Checks Cognitive Assessment , Head to toe Assessment , Medications. Response: After interactions and interventions patient responded in the following manner, Calm , Appropriate ,Hallucinating. Continue to assess behaviors and condition will continue to monitor throughout the shift as needed. Patient educated on ADL's, and hand hygiene. 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 Continue to assess patient for changes in above assessment. Monitor for medication needs, pain, and safety concerns. Hourly rounding performed to ensure safe environment.
[2018-07-22 16:19] VITALS: BP 133/87
[2018-07-22] MEDS: HALOPERIDOL 5 MG TABLET PO SCH (20:44)
[2018-07-22] MEDS: DIVALPROEX ER 250 MG TAB.ER.24H. PO SCH (20:44)
--- NOTE | 2018-07-22 21:30 | PDOC ---
Exam Note: Rick Note: Please also refer to the separate dictated note~for this date of service dictated separately.~Patient seen individually. Discussed the patient with Nursing staff reviewed the chart.~Reviewed interim history and current functioning. Reviewed vital signs,~Labs/ Radiology~and current medications noted below. Continue current treatment with the changes noted in the dictated addendum note Assessment: Vital Signs: Vital Signs Date Time Temp Pulse Resp B/P (MAP) Pulse Ox O2 Delivery O2 Flow Rate FiO2 07/22/18 16:51 57 133/87 07/22/18 16:19 98.0 20 93 Room Air I&O Intake and Output 07/22/18 07:00 Intake Total 1740 ml Balance 1740 ml Intake Oral 1740 ml # Voids 1 Current Medications: Meds: Current Medications Acetaminophen (Tylenol) 650 mg PRN Q6HRS PRN PO PAIN / TEMP; Start 07/13/18 at 21:00; Status Cancel Multi-Ingredient Ointment (Analgesic [place]) 1 kiara PRN QID PRN TP MUSCLE PAIN Last administered on 07/14/18at 11:30; Start 07/13/18 at 21:00 Al Hydroxide/Mg Hydroxide (Mylanta Plus Xs) 15 ml PRN AFTMEALHC PRN PO DYSPEPSIA; Start 07/13/18 at 21:00 Magnesium Hydroxide (Milk Of Magnesia) 2,400 mg PRN QHS PRN PO CONSTIPATION; Start 07/13/18 at 21:00 Clonazepam (KlonoPIN) 0.5 mg PRN DAILY PRN PO ANXIETY / AGITATION Last administered on 07/14/18at 07:54; Start 07/14/18 at 00:30 Furosemide (Lasix) 20 mg DAILY PO Last administered on 07/19/18at 08:03; Start 07/14/18 at 09:00; Stop 07/19/18 at 19:00; Status DC Levothyroxine Sodium (Synthroid) 100 mcg DAILYAC PO Last administered on at 07:53; Start 07/14/18 at 07:30; Stop 07/14/18 at 07:57; Status DC Risperidone (RisperDAL CONSTA) 50 mg Q2WKS IM Last administered on 07/20/18at 08 :32; Start 07/20/18 at 09:00 Sertraline HCl (Zoloft) 100 mg HS PO Last administered on 07/16/18 19:44; Start 07/14/18 at 21:00; Stop 07/17/18 at 19:12; Status DC Acetaminophen (Tylenol) 500 mg PRN Q6HRS PRN PO MILD PAIN / TEMP; Start at 00:30 Aspirin (Children'S Aspirin) 81 mg DAILYWBKFT PO Last administered on 08:14; Start 07/14/18 at 08:00 Clonidine HCl (Catapres) 0.2 mg BIDWMEALS PO Last administered on 07/22/18 16: 51; Start 07/14/18 at 08:00 Divalproex Sodium (Depakote Er) 1,000 mg QHS PO Last administered on 07/14/18 19:33; Start 07/14/18 at 21:00; Stop 07/15/18 at 19:35; Status DC Finasteride (Proscar) 5 mg DAILY PO Last administered on 07/22/18 08:14; Start 07/14/18 at 09:00 Guaifenesin (Robitussin Dm) 5 ml PRN Q8HRS PRN PO COUGH; Start 07/14/18 at 00: 30 Non-Formulary Medication (Menthol (Biofreeze)) 1 kiara QIDPRN PRN TP PAIN; Start 07/14/18 at 00:30; Status UNV Pantoprazole Sodium (Protonix) 40 mg DAILYAC PO Last administered on 07/22/18 08:14; Start 07/14/18 at 07:30 Levothyroxine Sodium (Synthroid) 100 mcg DAILY06 PO Last administered on 04:23; Start 07/15/18 at 06:00 Risperidone (RisperDAL CONSTA) 50 mg Q2WKS IM ; Start 07/20/18 at 09:00; Stop at 09:00; Status DC Meloxicam (Mobic) 15 mg DAILY PO Last administered on 07/22/18 08:14; Start at 09:00 Divalproex Sodium (Depakote Er) 1,250 mg QHS PO Last administered on 07/22/18 20:44; Start 07/15/18 at 21:00 Haloperidol (Haldol) 2 mg HS PO ; Start 07/15/18 at 21:00; Stop 07/15/18 at 21: 00; Status DC Haloperidol Lactate (HALDOL 10mg ORAL CONC) 2 mg HS PO Last administered on at 19:14; Start 07/15/18 at 21:00; Stop 07/20/18 at 18:42; Status DC Fluvoxamine Maleate (Luvox) 25 mg HS PO Last administered on 07/19/18at 19:14; Start 07/17/18 at 21:00; Stop 07/20/18 at 20:59; Status DC Fluvoxamine Maleate (Luvox) 50 mg HS PO Last administered on 07/22/18at 20:44; Start 07/20/18 at 21:00 Furosemide (Lasix) 40 mg DAILY PO Last administered on 07/22/18 08:14; Start 07/20/18 at 09:00 Haloperidol (Haldol) 5 mg HS PO Last administered on 07/22/18at 20:44; Start at 21:00 Active Scripts Active Reported Zoloft (Sertraline Hcl) 100 Mg Tablet 100 Mg PO HS Risperdal Consta (Risperidone Microspheres) 50 Mg/2 Ml Disp.syrin 50 Mg IM Q2WKS Prilosec Otc (Omeprazole Magnesium) 20 Mg Tablet.dr 40 Mg PO DAILY Biofreeze (Menthol) 118 Ml Gel..ml. 1 Kiara TP QIDPRN PRN Synthroid (Levothyroxine Sodium) 100 Mcg Tablet 100 Mcg PO DAILYAC Lasix (Furosemide) 20 Mg Tablet 20 Mg PO DAILY Finasteride 5 Mg Tablet 5 Mg PO DAILY Divalproex Sodium Er (Divalproex Sodium) 500 Mg Tab.er.24h 1,000 Mg PO HS Robitussin Cough-Chest Dm Liq (Guaifenesin/Dextromethorphan) 237 Ml Liquid 5 Ml PO PRN Q8HRS PRN Clonazepam 0.5 Mg Tablet 0.5 Mg PO PRN DAILY PRN Clonidine Hcl 0.2 Mg Tablet 0.2 Mg PO BIDWMEALS Aspirin 81 Mg Tab.chew 81 Mg PO DAILY Acetaminophen 500 Mg Tablet 500 Mg PO PRN Q6HRS PRN I have reviewed the current psychotropics carefully including drug interactions. Risk benefit ratio favors no change other than as noted in my dictated progress note. Diagnosis: Problems: (1) Altered mental status (2) Anxiety disorder (3) Psychosis, atypical (4) Major depressive disorder, recurrent episode (5) Mild cognitive impairment (6) Schizoaffective disorder, chronic condition with acute exacerbation JESSICA QUINTERO MD Jul 22, 2018 21:29
--- NOTE | 2018-07-23 00:46 | NUR ---
PT compliant with medication administration with whole medications given. PT stating he is still hearing a man commanding him to do things in a whisper and also spraying something on him. He stated he was hopeful that medication adjustment will "fix this".
[2018-07-23] MEDS: LEVOTHYROXINE 100 MCG TABLET PO SCH (06:03)
[2018-07-23 06:04] VITALS: BP 148/90
[2018-07-23] MEDS: MELOXICAM 15 MG TABLET. PO SCH (08:17)
[2018-07-23] MEDS: ASPIRIN 81 MG TAB.CHEW PO SCH (08:17)
[2018-07-23] MEDS: cloNIDine HCL 0.2 MG TABLET PO SCH ×2 (08:17→17:18)
[2018-07-23] MEDS: FUROSEMIDE 40 MG TABLET PO SCH (08:18)
[2018-07-23] MEDS: FINASTERIDE 5 MG TABLET PO SCH (08:18)
[2018-07-23] MEDS: PANTOPRAZOLE 40 MG TABLET. PO SCH (08:18)
--- NOTE | 2018-07-23 10:19 | NUR ---
Behavior Intervention Response and Plan: BIRP Note: Behavior: Assumed Care of patient, patient located in Dining Room at shift change. Patient exhibited the following behavior Calm, Interactive, Irritable. Brief assessment on rounds of vital signs, medication needs, lab studies, and pain. Treatment plan problems . Intervention: Patient assessed and the following interventions initiated safety checks 15 Minute Checks Head to toe Assessment , Cognitive Assessment , Medications. Response: After interactions and interventions patient responded in the following manner, Hallucinating , Compliant ,Cooperative. Continue to assess behaviors and condition will continue to monitor throughout the shift as needed. Patient educated on ADL's, and hand hygiene. 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 Continue to assess patient for changes in above assessment. Monitor for medication needs, pain, and safety concerns. Hourly rounding performed to ensure safe environment.
--- NOTE | 2018-07-23 12:17 | PN ---
DATE: 07/21/2018 PSYCHIATRIC PROGRESS NOTE This late entry 07/21/2018 covers elements, not covered in my initial note. SUBJECTIVE: I met with the patient in the evening. The patient slept 8 hours previous night. Overall, the patient states his voices are reducing and he hears them every other day and mostly, these are voices, sensations of people throwing things at him or moving under his bed had reduced. He still finds some man whistling at him, threatening to kill him, but again much less intense. He is concerned about his pedal edema. We will refer to Dr. Diop. REVIEW OF SYSTEMS: No CV, , pulmonary, eye, ENT system symptoms on review. MENTAL STATUS EXAM: Oriented reasonably. Speech is coherent, abstraction fair, computation impaired, language function intact, attention span short. Mood and affect appears less anxious and less dysphoric. LABORATORY DATA: Reviewed. IMPRESSION: Unchanged from initial note. PLAN: No change from initial note. Continue to gradually increase the Luvox and may need to adjust the Haldol as well, which we will increase to 5 mg at bedtime. MAN Nathalie QUINTERO MD DR: VIV/prakash JOB#: [id number] / [id number]
[2018-07-23 16:08] VITALS: BP 123/80
--- NOTE | 2018-07-23 19:37 | PDOC ---
Exam Note: Rick Note: Please also refer to the separate dictated note~for this date of service dictated separately.~Patient seen individually. Discussed the patient with Nursing staff reviewed the chart.~Reviewed interim history and current functioning. Reviewed vital signs,~Labs/ Radiology~and current medications noted below. Continue current treatment with the changes noted in the dictated addendum note Assessment: Vital Signs: Vital Signs Date Time Temp Pulse Resp B/P (MAP) Pulse Ox O2 Delivery O2 Flow Rate FiO2 07/23/18 17:18 58 123/80 07/23/18 16:08 97.5 18 96 07/22/18 16:19 Room Air I&O Intake and Output 07/23/18 06:59 Intake Total 1920 ml Balance 1920 ml Intake Oral 1920 ml # Voids 1 Current Medications: Meds: Current Medications Acetaminophen (Tylenol) 650 mg PRN Q6HRS PRN PO PAIN / TEMP; Start 07/13/18 at 21:00; Status Cancel Multi-Ingredient Ointment (Analgesic [place]) 1 kiara PRN QID PRN TP MUSCLE PAIN Last administered on 07/14/18at 11:30; Start 07/13/18 at 21:00 Al Hydroxide/Mg Hydroxide (Mylanta Plus Xs) 15 ml PRN AFTMEALHC PRN PO DYSPEPSIA; Start 07/13/18 at 21:00 Magnesium Hydroxide (Milk Of Magnesia) 2,400 mg PRN QHS PRN PO CONSTIPATION; Start 07/13/18 at 21:00 Clonazepam (KlonoPIN) 0.5 mg PRN DAILY PRN PO ANXIETY / AGITATION Last administered on 07/14/18at 07:54; Start 07/14/18 at 00:30 Furosemide (Lasix) 20 mg DAILY PO Last administered on 07/19/18 08:03; Start 07/14/18 at 09:00; Stop 07/19/18 at 19:00; Status DC Levothyroxine Sodium (Synthroid) 100 mcg DAILYAC PO Last administered on 07:53; Start 07/14/18 at 07:30; Stop 07/14/18 at 07:57; Status DC Risperidone (RisperDAL CONSTA) 50 mg Q2WKS IM Last administered on 07/20/18at 08 :32; Start 07/20/18 at 09:00 Sertraline HCl (Zoloft) 100 mg HS PO Last administered on 07/16/18 19:44; Start 07/14/18 at 21:00; Stop 07/17/18 at 19:12; Status DC Acetaminophen (Tylenol) 500 mg PRN Q6HRS PRN PO MILD PAIN / TEMP; Start at 00:30 Aspirin (Children'S Aspirin) 81 mg DAILYWBKFT PO Last administered on 08:17; Start 07/14/18 at 08:00 Clonidine HCl (Catapres) 0.2 mg BIDWMEALS PO Last administered on 07/23/18 17: 18; Start 07/14/18 at 08:00 Divalproex Sodium (Depakote Er) 1,000 mg QHS PO Last administered on 07/14/18 19:33; Start 07/14/18 at 21:00; Stop 07/15/18 at 19:35; Status DC Finasteride (Proscar) 5 mg DAILY PO Last administered on 07/23/18 08:18; Start 07/14/18 at 09:00 Guaifenesin (Robitussin Dm) 5 ml PRN Q8HRS PRN PO COUGH; Start 07/14/18 at 00: 30 Non-Formulary Medication (Menthol (Biofreeze)) 1 kiara QIDPRN PRN TP PAIN; Start 07/14/18 at 00:30; Status UNV Pantoprazole Sodium (Protonix) 40 mg DAILYAC PO Last administered on 07/23/18 08:18; Start 07/14/18 at 07:30 Levothyroxine Sodium (Synthroid) 100 mcg DAILY06 PO Last administered on 06:03; Start 07/15/18 at 06:00 Risperidone (RisperDAL CONSTA) 50 mg Q2WKS IM ; Start 07/20/18 at 09:00; Stop at 09:00; Status DC Meloxicam (Mobic) 15 mg DAILY PO Last administered on 07/23/18 08:17; Start at 09:00 Divalproex Sodium (Depakote Er) 1,250 mg QHS PO Last administered on 07/22/18 20:44; Start 07/15/18 at 21:00 Haloperidol (Haldol) 2 mg HS PO ; Start 07/15/18 at 21:00; Stop 07/15/18 at 21: 00; Status DC Haloperidol Lactate (HALDOL 10mg ORAL CONC) 2 mg HS PO Last administered on at 19:14; Start 07/15/18 at 21:00; Stop 07/20/18 at 18:42; Status DC Fluvoxamine Maleate (Luvox) 25 mg HS PO Last administered on 07/19/18at 19:14; Start 07/17/18 at 21:00; Stop 07/20/18 at 20:59; Status DC Fluvoxamine Maleate (Luvox) 50 mg HS PO Last administered on 07/22/18at 20:44; Start 07/20/18 at 21:00 Furosemide (Lasix) 40 mg DAILY PO Last administered on 07/23/18at 08:18; Start 07/20/18 at 09:00 Haloperidol (Haldol) 5 mg HS PO Last administered on 07/22/18at 20:44; Start at 21:00 Active Scripts Active Reported Zoloft (Sertraline Hcl) 100 Mg Tablet 100 Mg PO HS Risperdal Consta (Risperidone Microspheres) 50 Mg/2 Ml Disp.syrin 50 Mg IM Q2WKS Prilosec Otc (Omeprazole Magnesium) 20 Mg Tablet.dr 40 Mg PO DAILY Biofreeze (Menthol) 118 Ml Gel..ml. 1 Kiara TP QIDPRN PRN Synthroid (Levothyroxine Sodium) 100 Mcg Tablet 100 Mcg PO DAILYAC Lasix (Furosemide) 20 Mg Tablet 20 Mg PO DAILY Finasteride 5 Mg Tablet 5 Mg PO DAILY Divalproex Sodium Er (Divalproex Sodium) 500 Mg Tab.er.24h 1,000 Mg PO HS Robitussin Cough-Chest Dm Liq (Guaifenesin/Dextromethorphan) 237 Ml Liquid 5 Ml PO PRN Q8HRS PRN Clonazepam 0.5 Mg Tablet 0.5 Mg PO PRN DAILY PRN Clonidine Hcl 0.2 Mg Tablet 0.2 Mg PO BIDWMEALS Aspirin 81 Mg Tab.chew 81 Mg PO DAILY Acetaminophen 500 Mg Tablet 500 Mg PO PRN Q6HRS PRN I have reviewed the current psychotropics carefully including drug interactions. Risk benefit ratio favors no change other than as noted in my dictated progress note. Diagnosis: Problems: (1) Altered mental status (2) Anxiety disorder (3) Psychosis, atypical (4) Major depressive disorder, recurrent episode (5) Mild cognitive impairment (6) Schizoaffective disorder, chronic condition with acute exacerbation JESSICA QUINTERO MD Jul 23, 2018 19:37
[2018-07-23] MEDS: DIVALPROEX ER 250 MG TAB.ER.24H. PO SCH (20:38)
[2018-07-23] MEDS: HALOPERIDOL 5 MG TABLET PO SCH (20:38)
--- NOTE | 2018-07-24 02:05 | NUR ---
Nursing Note Pt still states he hears someone whistling in his ears and pouring chemicals on his body. Pt thinks that the severity and intensity of the voices has diminished. Is hopeful that we can continue to help him.
[2018-07-24] MEDS: LEVOTHYROXINE 100 MCG TABLET PO SCH (04:47)
[2018-07-24 06:06] VITALS: BP 149/98
[2018-07-24] MEDS: FINASTERIDE 5 MG TABLET PO SCH (08:04)
[2018-07-24] MEDS: cloNIDine HCL 0.2 MG TABLET PO SCH ×2 (08:04→17:15)
[2018-07-24] MEDS: ASPIRIN 81 MG TAB.CHEW PO SCH (08:04)
[2018-07-24] MEDS: FUROSEMIDE 40 MG TABLET PO SCH (08:04)
[2018-07-24] MEDS: PANTOPRAZOLE 40 MG TABLET. PO SCH (08:04)
[2018-07-24] MEDS: MELOXICAM 15 MG TABLET. PO SCH (08:04)
--- NOTE | 2018-07-24 08:15 | NUR ---
Behavior Intervention Response and Plan: BIRP Note: Behavior: Assumed Care of patient, patient located in Patient Room at shift change. Patient exhibited the following behavior Interactive, Disorganized, Hallucinating. Brief assessment on rounds of vital signs, medication needs, lab studies, and pain. Treatment plan problems 1 & 2. Intervention: Patient assessed and the following interventions initiated safety checks 15 Minute Checks Cognitive Assessment , Head to toe Assessment , Medications. Response: After interactions and interventions patient responded in the following manner, Calm , Appropriate ,Hallucinating. Continue to assess behaviors and condition will continue to monitor throughout the shift as needed. Patient educated on ADL's, and hand hygiene. 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 Continue to assess patient for changes in above assessment. Monitor for medication needs, pain, and safety concerns. Hourly rounding performed to ensure safe environment.
[2018-07-24 15:43] VITALS: BP 105/70
--- NOTE | 2018-07-24 18:24 | PN ---
DATE: 07/22/2018 PSYCHIATRIC PROGRESS NOTE This late entry 07/22/2018 covers elements not covered in my initial note. SUBJECTIVE: I met with the patient in the evening. The patient slept 7-1/4 hours previous night. I met with him at some length in his room. He is still having some moderate free hallucinations, but less fixated on stuff being thrown on him and tactile hallucinations are better. MENTAL STATUS EXAM: He is reasonably oriented. Speech is coherent, abstraction fair, computation somewhat impaired, language function intact, attention span short. Mood and affect somewhat anxious, labile. REVIEW OF SYSTEMS: No CV, , pulmonary, eye system symptoms on review. IMPRESSION: Unchanged from initial note. PLAN: No change from initial note. MAN Nathalie QUINTERO MD DR: VIV/prakash JOB#: [id number] / [id number]
--- NOTE | 2018-07-24 18:26 | PN ---
DATE: 07/23/2018 PSYCHIATRIC PROGRESS NOTE This is a late entry 07/23/2018, covers elements not covered in my initial note. SUBJECTIVE: I met with the patient in the evening. The patient slept 7-1/2 hours previous night. I met with him in his room at length. He still states he hears the man the spring, but still feels at times he is being doused bile liquid thrown by this man. He remains somewhat obsessive. REVIEW OF SYSTEMS: No CV, , pulmonary, eye, ENT system symptoms on review. MENTAL STATUS EXAM: Oriented reasonably. Speech is coherent, abstraction fair, computation impaired, language function intact. Attention span short. He was questioning me about the weather outside and very interested in rather lengthy conversation. LABORATORY DATA: Reviewed. IMPRESSION: Unchanged from initial note. PLAN: Increase Luvox to 75 mg at bedtime after he has been on 50 for 3 days. Rest unchanged. JESSICA QUINTERO MD DR: VIV/prakash JOB#: [id number] / [id number]
[2018-07-24] MEDS: DIVALPROEX ER 250 MG TAB.ER.24H. PO SCH (20:09)
[2018-07-24] MEDS: HALOPERIDOL 5 MG TABLET PO SCH (20:09)
--- NOTE | 2018-07-24 22:10 | PDOC ---
Exam Note: Rick Note: Please also refer to the separate dictated note~for this date of service dictated separately.~Patient seen individually. Discussed the patient with Nursing staff reviewed the chart.~Reviewed interim history and current functioning. Reviewed vital signs,~Labs/ Radiology~and current medications noted below. Continue current treatment with the changes noted in the dictated addendum note Assessment: Vital Signs: Vital Signs Date Time Temp Pulse Resp B/P (MAP) Pulse Ox O2 Delivery O2 Flow Rate FiO2 07/24/18 17:15 57 105/70 07/24/18 15:43 97.1 18 94 07/22/18 16:19 Room Air I&O Intake and Output 07/24/18 07:00 Intake Total 1680 ml Balance 1680 ml Intake Oral 1680 ml # Voids 1 Current Medications: Meds: Current Medications Acetaminophen (Tylenol) 650 mg PRN Q6HRS PRN PO PAIN / TEMP; Start 07/13/18 at 21:00; Status Cancel Multi-Ingredient Ointment (Analgesic [place]) 1 kiara PRN QID PRN TP MUSCLE PAIN Last administered on 07/14/18at 11:30; Start 07/13/18 at 21:00 Al Hydroxide/Mg Hydroxide (Mylanta Plus Xs) 15 ml PRN AFTMEALHC PRN PO DYSPEPSIA; Start 07/13/18 at 21:00 Magnesium Hydroxide (Milk Of Magnesia) 2,400 mg PRN QHS PRN PO CONSTIPATION; Start 07/13/18 at 21:00 Clonazepam (KlonoPIN) 0.5 mg PRN DAILY PRN PO ANXIETY / AGITATION Last administered on 07/14/18at 07:54; Start 07/14/18 at 00:30 Furosemide (Lasix) 20 mg DAILY PO Last administered on 07/19/18 08:03; Start 07/14/18 at 09:00; Stop 07/19/18 at 19:00; Status DC Levothyroxine Sodium (Synthroid) 100 mcg DAILYAC PO Last administered on 07:53; Start 07/14/18 at 07:30; Stop 07/14/18 at 07:57; Status DC Risperidone (RisperDAL CONSTA) 50 mg Q2WKS IM Last administered on 07/20/18at 08 :32; Start 07/20/18 at 09:00 Sertraline HCl (Zoloft) 100 mg HS PO Last administered on 07/16/18 19:44; Start 07/14/18 at 21:00; Stop 07/17/18 at 19:12; Status DC Acetaminophen (Tylenol) 500 mg PRN Q6HRS PRN PO MILD PAIN / TEMP; Start at 00:30 Aspirin (Children'S Aspirin) 81 mg DAILYWBKFT PO Last administered on 08:04; Start 07/14/18 at 08:00 Clonidine HCl (Catapres) 0.2 mg BIDWMEALS PO Last administered on 07/24/18 17: 15; Start 07/14/18 at 08:00 Divalproex Sodium (Depakote Er) 1,000 mg QHS PO Last administered on 07/14/18 19:33; Start 07/14/18 at 21:00; Stop 07/15/18 at 19:35; Status DC Finasteride (Proscar) 5 mg DAILY PO Last administered on 07/24/18 08:04; Start 07/14/18 at 09:00 Guaifenesin (Robitussin Dm) 5 ml PRN Q8HRS PRN PO COUGH; Start 07/14/18 at 00: 30 Non-Formulary Medication (Menthol (Biofreeze)) 1 kiara QIDPRN PRN TP PAIN; Start 07/14/18 at 00:30; Status UNV Pantoprazole Sodium (Protonix) 40 mg DAILYAC PO Last administered on 07/24/18 08:04; Start 07/14/18 at 07:30 Levothyroxine Sodium (Synthroid) 100 mcg DAILY06 PO Last administered on 04:47; Start 07/15/18 at 06:00 Risperidone (RisperDAL CONSTA) 50 mg Q2WKS IM ; Start 07/20/18 at 09:00; Stop at 09:00; Status DC Meloxicam (Mobic) 15 mg DAILY PO Last administered on 07/24/18 08:04; Start at 09:00 Divalproex Sodium (Depakote Er) 1,250 mg QHS PO Last administered on 07/24/18 20:09; Start 07/15/18 at 21:00 Haloperidol (Haldol) 2 mg HS PO ; Start 07/15/18 at 21:00; Stop 07/15/18 at 21: 00; Status DC Haloperidol Lactate (HALDOL 10mg ORAL CONC) 2 mg HS PO Last administered on 19:14; Start 07/15/18 at 21:00; Stop 07/20/18 at 18:42; Status DC Fluvoxamine Maleate (Luvox) 25 mg HS PO Last administered on 07/19/18 19:14; Start 07/17/18 at 21:00; Stop 07/20/18 at 20:59; Status DC Fluvoxamine Maleate (Luvox) 50 mg HS PO Last administered on 07/23/18at 20:39; Start 07/20/18 at 21:00; Stop 07/23/18 at 21:14; Status DC Furosemide (Lasix) 40 mg DAILY PO Last administered on 07/24/18 08:04; Start 07/20/18 at 09:00 Haloperidol (Haldol) 5 mg HS PO Last administered on 07/24/18 20:09; Start at 21:00 Fluvoxamine Maleate (Luvox) 75 mg HS PO Last administered on 07/24/18 20:09; Start 07/23/18 at 21:30 Active Scripts Active Reported Zoloft (Sertraline Hcl) 100 Mg Tablet 100 Mg PO HS Risperdal Consta (Risperidone Microspheres) 50 Mg/2 Ml Disp.syrin 50 Mg IM Q2WKS Prilosec Otc (Omeprazole Magnesium) 20 Mg Tablet.dr 40 Mg PO DAILY Biofreeze (Menthol) 118 Ml Gel..ml. 1 Kiara TP QIDPRN PRN Synthroid (Levothyroxine Sodium) 100 Mcg Tablet 100 Mcg PO DAILYAC Lasix (Furosemide) 20 Mg Tablet 20 Mg PO DAILY Finasteride 5 Mg Tablet 5 Mg PO DAILY Divalproex Sodium Er (Divalproex Sodium) 500 Mg Tab.er.24h 1,000 Mg PO HS Robitussin Cough-Chest Dm Liq (Guaifenesin/Dextromethorphan) 237 Ml Liquid 5 Ml PO PRN Q8HRS PRN Clonazepam 0.5 Mg Tablet 0.5 Mg PO PRN DAILY PRN Clonidine Hcl 0.2 Mg Tablet 0.2 Mg PO BIDWMEALS Aspirin 81 Mg Tab.chew 81 Mg PO DAILY Acetaminophen 500 Mg Tablet 500 Mg PO PRN Q6HRS PRN I have reviewed the current psychotropics carefully including drug interactions. Risk benefit ratio favors no change other than as noted in my dictated progress note. Diagnosis: Problems: (1) Altered mental status (2) Anxiety disorder (3) Psychosis, atypical (4) Major depressive disorder, recurrent episode (5) Mild cognitive impairment (6) Schizoaffective disorder, chronic condition with acute exacerbation JESSICA QUINTERO MD Jul 24, 2018 22:10
--- NOTE | 2018-07-24 22:58 | NUR ---
Pt sitting up in day room, watching television and socializing with peer at shift change. Pt calm, pleasant, and interactive. Pt cooperative with assessment and compliant with medications.
[2018-07-25] MEDS: LEVOTHYROXINE 100 MCG TABLET PO SCH (05:27)
[2018-07-25 05:36] VITALS: BP 126/80
[2018-07-25] MEDS: FUROSEMIDE 40 MG TABLET PO SCH (07:56)
[2018-07-25] MEDS: MELOXICAM 15 MG TABLET. PO SCH (07:56)
[2018-07-25] MEDS: PANTOPRAZOLE 40 MG TABLET. PO SCH (07:57)
[2018-07-25] MEDS: ASPIRIN 81 MG TAB.CHEW PO SCH (07:57)
[2018-07-25] MEDS: cloNIDine HCL 0.2 MG TABLET PO SCH ×2 (07:57→17:08)
[2018-07-25] MEDS: FINASTERIDE 5 MG TABLET PO SCH (07:57)
--- NOTE | 2018-07-25 08:05 | NUR ---
Behavior Intervention Response and Plan: BIRP Note: Behavior: Assumed Care of patient, patient located in Patient Room at shift change. Patient exhibited the following behavior Interactive, Disorganized, Hallucinating. Brief assessment on rounds of vital signs, medication needs, lab studies, and pain. Treatment plan problems 1 & 2. Intervention: Patient assessed and the following interventions initiated safety checks 15 Minute Checks Cognitive Assessment , Head to toe Assessment , Medications. Response: After interactions and interventions patient responded in the following manner, Calm , Appropriate ,Hallucinating. Continue to assess behaviors and condition will continue to monitor throughout the shift as needed. Patient educated on ADL's, and hand hygiene. 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 Continue to assess patient for changes in above assessment. Monitor for medication needs, pain, and safety concerns. Hourly rounding performed to ensure safe environment.
[2018-07-25 16:19] VITALS: BP 136/85
[2018-07-25] MEDS: DIVALPROEX ER 250 MG TAB.ER.24H. PO SCH (20:49)
[2018-07-25] MEDS: HALOPERIDOL 5 MG TABLET PO SCH (20:50)
--- NOTE | 2018-07-25 21:13 | PN ---
DATE: 07/24/2018 PSYCHIATRIC PROGRESS NOTE This late entry 07/24/2018 covers elements not covered in my initial note. SUBJECTIVE: I met with the patient in the evening in his room at some length. The patient slept 7-1/2 hours previous night. He still complains of some auditory hallucinations, hears the whispers and someone whistling at him, and then felt someone had sprayed something on him and he was quite clear about this. Despite this, he feels this is less than before. REVIEW OF SYSTEMS: No CV, , pulmonary, eye, ENT system symptoms on review. MENTAL STATUS EXAM: Oriented to himself and situation. Speech is coherent. He is pleasant, verbal, very interactive, asking me about the weather outside and has been fairly cold. No CV, , pulmonary, eye system symptoms on review. MENTAL STATUS EXAM: Reasonably oriented. Speech coherent, abstraction fair, computation somewhat impaired, language function intact, attention span short. Mood and affect somewhat anxious, labile at times, but much improved; at times, withdrawn. LABORATORY DATA: Reviewed. IMPRESSION: Unchanged from initial note. PLAN: No change from initial note, but if the above psychotic symptoms persist, we may have to increase the bedtime Haldol from 5 mg up to 7.5 mg. JESSICA QUINTERO MD DR: VIV/prakash JOB#: [id number] / [id number]
--- NOTE | 2018-07-25 22:21 | PDOC ---
Exam Note: Rick Note: Please also refer to the separate dictated note~for this date of service dictated separately.~Patient seen individually. Discussed the patient with Nursing staff reviewed the chart.~Reviewed interim history and current functioning. Reviewed vital signs,~Labs/ Radiology~and current medications noted below. Continue current treatment with the changes noted in the dictated addendum note Assessment: Vital Signs: Vital Signs Date Time Temp Pulse Resp B/P (MAP) Pulse Ox O2 Delivery O2 Flow Rate FiO2 07/25/18 17:08 56 136/85 07/25/18 16:19 98.7 16 98 07/25/18 05:36 Room Air I&O Intake and Output 07/25/18 06:59 Intake Total 1920 ml Balance 1920 ml Intake Oral 1920 ml Current Medications: Meds: Current Medications Acetaminophen (Tylenol) 650 mg PRN Q6HRS PRN PO PAIN / TEMP; Start 07/13/18 at 21:00; Status Cancel Multi-Ingredient Ointment (Analgesic [place]) 1 kiara PRN QID PRN TP MUSCLE PAIN Last administered on 07/14/18at 11:30; Start 07/13/18 at 21:00 Al Hydroxide/Mg Hydroxide (Mylanta Plus Xs) 15 ml PRN AFTMEALHC PRN PO DYSPEPSIA; Start 07/13/18 at 21:00 Magnesium Hydroxide (Milk Of Magnesia) 2,400 mg PRN QHS PRN PO CONSTIPATION; Start 07/13/18 at 21:00 Clonazepam (KlonoPIN) 0.5 mg PRN DAILY PRN PO ANXIETY / AGITATION Last administered on 07/14/18at 07:54; Start 07/14/18 at 00:30 Furosemide (Lasix) 20 mg DAILY PO Last administered on 07/19/18 08:03; Start 07/14/18 at 09:00; Stop 07/19/18 at 19:00; Status DC Levothyroxine Sodium (Synthroid) 100 mcg DAILYAC PO Last administered on 07:53; Start 07/14/18 at 07:30; Stop 07/14/18 at 07:57; Status DC Risperidone (RisperDAL CONSTA) 50 mg Q2WKS IM Last administered on 07/20/18 08 :32; Start 07/20/18 at 09:00; Stop 07/25/18 at 19:19; Status DC Sertraline HCl (Zoloft) 100 mg HS PO Last administered on 07/16/18 19:44; Start 07/14/18 at 21:00; Stop 07/17/18 at 19:12; Status DC Acetaminophen (Tylenol) 500 mg PRN Q6HRS PRN PO MILD PAIN / TEMP; Start at 00:30 Aspirin (Children'S Aspirin) 81 mg DAILYWBKFT PO Last administered on 07:57; Start 07/14/18 at 08:00 Clonidine HCl (Catapres) 0.2 mg BIDWMEALS PO Last administered on 07/25/18 17: 08; Start 07/14/18 at 08:00 Divalproex Sodium (Depakote Er) 1,000 mg QHS PO Last administered on 07/14/18 19:33; Start 07/14/18 at 21:00; Stop 07/15/18 at 19:35; Status DC Finasteride (Proscar) 5 mg DAILY PO Last administered on 07/25/18 07:57; Start 07/14/18 at 09:00 Guaifenesin (Robitussin Dm) 5 ml PRN Q8HRS PRN PO COUGH; Start 07/14/18 at 00: 30 Non-Formulary Medication (Menthol (Biofreeze)) 1 kiara QIDPRN PRN TP PAIN; Start 07/14/18 at 00:30; Status UNV Pantoprazole Sodium (Protonix) 40 mg DAILYAC PO Last administered on 07/25/18 07:57; Start 07/14/18 at 07:30 Levothyroxine Sodium (Synthroid) 100 mcg DAILY06 PO Last administered on 05:27; Start 07/15/18 at 06:00 Risperidone (RisperDAL CONSTA) 50 mg Q2WKS IM ; Start 07/20/18 at 09:00; Stop at 09:00; Status DC Meloxicam (Mobic) 15 mg DAILY PO Last administered on 07/25/18 07:56; Start at 09:00 Divalproex Sodium (Depakote Er) 1,250 mg QHS PO Last administered on 07/25/18 20:49; Start 07/15/18 at 21:00 Haloperidol (Haldol) 2 mg HS PO ; Start 07/15/18 at 21:00; Stop 07/15/18 at 21: 00; Status DC Haloperidol Lactate (HALDOL 10mg ORAL CONC) 2 mg HS PO Last administered on at 19:14; Start 07/15/18 at 21:00; Stop 07/20/18 at 18:42; Status DC Fluvoxamine Maleate (Luvox) 25 mg HS PO Last administered on 07/19/18at 19:14; Start 07/17/18 at 21:00; Stop 07/20/18 at 20:59; Status DC Fluvoxamine Maleate (Luvox) 50 mg HS PO Last administered on 07/23/18at 20:39; Start 07/20/18 at 21:00; Stop 07/23/18 at 21:14; Status DC Furosemide (Lasix) 40 mg DAILY PO Last administered on 07/25/18at 07:56; Start 07/20/18 at 09:00 Haloperidol (Haldol) 5 mg HS PO Last administered on 07/24/18 20:09; Start at 21:00; Stop 07/25/18 at 19:19; Status DC Fluvoxamine Maleate (Luvox) 75 mg HS PO Last administered on 07/25/18at 20:50; Start 07/23/18 at 21:30 Haloperidol (Haldol) 7.5 mg HS PO Last administered on 07/25/18at 20:50; Start 07/25/18 at 21:00 Active Scripts Active Reported Zoloft (Sertraline Hcl) 100 Mg Tablet 100 Mg PO HS Risperdal Consta (Risperidone Microspheres) 50 Mg/2 Ml Disp.syrin 50 Mg IM Q2WKS Prilosec Otc (Omeprazole Magnesium) 20 Mg Tablet.dr 40 Mg PO DAILY Biofreeze (Menthol) 118 Ml Gel..ml. 1 Kiara TP QIDPRN PRN Synthroid (Levothyroxine Sodium) 100 Mcg Tablet 100 Mcg PO DAILYAC Lasix (Furosemide) 20 Mg Tablet 20 Mg PO DAILY Finasteride 5 Mg Tablet 5 Mg PO DAILY Divalproex Sodium Er (Divalproex Sodium) 500 Mg Tab.er.24h 1,000 Mg PO HS Robitussin Cough-Chest Dm Liq (Guaifenesin/Dextromethorphan) 237 Ml Liquid 5 Ml PO PRN Q8HRS PRN Clonazepam 0.5 Mg Tablet 0.5 Mg PO PRN DAILY PRN Clonidine Hcl 0.2 Mg Tablet 0.2 Mg PO BIDWMEALS Aspirin 81 Mg Tab.chew 81 Mg PO DAILY Acetaminophen 500 Mg Tablet 500 Mg PO PRN Q6HRS PRN I have reviewed the current psychotropics carefully including drug interactions. Risk benefit ratio favors no change other than as noted in my dictated progress note. Diagnosis: Problems: (1) Altered mental status (2) Anxiety disorder (3) Psychosis, atypical (4) Major depressive disorder, recurrent episode (5) Mild cognitive impairment (6) Schizoaffective disorder, chronic condition with acute exacerbation JESSICA QUINTERO MD Jul 25, 2018 22:21
[2018-07-26] MEDS: LEVOTHYROXINE 100 MCG TABLET PO SCH (05:22)
[2018-07-26 06:00] VITALS: BP 132/77
[2018-07-26 07:31] LABS: BASO % 1 % (0-3); EOS # 0.2 x10^3/uL (0.0-0.7); EOS % 3 % (0-3); HEMATOCRIT 41.7 % (39.0-53.0); HEMOGLOBIN 13.9 g/dL (13.0-17.5); LYMPH # 1.9 x10^3/uL (1.0-4.8); LYMPH % 31 % (24-48); MEAN CORPUSCULAR HEMOGLOBIN 31 pg (25-35); MEAN CORPUSCULAR HGB CONC 33 g/dL (31-37); MEAN CORPUSCULAR VOLUME 93 fL (79-100); MONO # 0.9 x10^3/uL (0.0-1.1); MONO % 16 % (0-9); NEUT % 50 % (31-73); PLATELET COUNT 170 x10^3/uL (140-400); RED BLOOD COUNT 4.47 x10^6/uL (4.30-5.70); RED CELL DISTRIBUTION WIDTH 14.8 % (11.5-14.5)
[2018-07-26 07:51] LABS: ALBUMIN/GLOBULIN RATIO 0.9 (1.0-1.7); CALCIUM 8.6 mg/dL (8.5-10.1); CREATININE 1.1 mg/dL (0.7-1.3); GFR 66.4; POTASSIUM 4.2 mmol/L (3.5-5.1); TOTAL BILIRUBIN 0.3 mg/dL (0.2-1.0); TOTAL PROTEIN 6.3 g/dL (6.4-8.2)
[2018-07-26] MEDS: MELOXICAM 15 MG TABLET. PO SCH (07:52)
[2018-07-26] MEDS: FUROSEMIDE 40 MG TABLET PO SCH (07:52)
[2018-07-26] MEDS: ASPIRIN 81 MG TAB.CHEW PO SCH (07:53)
[2018-07-26] MEDS: PANTOPRAZOLE 40 MG TABLET. PO SCH (07:53)
[2018-07-26] MEDS: FINASTERIDE 5 MG TABLET PO SCH (07:54)
[2018-07-26] MEDS: cloNIDine HCL 0.2 MG TABLET PO SCH ×2 (07:54→17:12)
--- NOTE | 2018-07-26 08:00 | NUR ---
Behavior Intervention Response and Plan: BIRP Note: Behavior: Assumed Care of patient, patient located in Patient Room at shift change. Patient exhibited the following behavior Interactive, Disorganized, Hallucinating. Brief assessment on rounds of vital signs, medication needs, lab studies, and pain. Treatment plan problems 1 & 2. Intervention: Patient assessed and the following interventions initiated safety checks 15 Minute Checks Cognitive Assessment , Head to toe Assessment , Medications. Response: After interactions and interventions patient responded in the following manner, Calm , Appropriate ,Hallucinating. Continue to assess behaviors and condition will continue to monitor throughout the shift as needed. Patient educated on ADL's, and hand hygiene. 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 Continue to assess patient for changes in above assessment. Monitor for medication needs, pain, and safety concerns. Hourly rounding performed to ensure safe environment.
--- NOTE | 2018-07-26 14:56 | NUR ---
[employer] was down from ~11:00 to ~14:30. Afternoon medications administered and recorded per downtime procedures.
--- NOTE | 2018-07-26 15:00 | NUR ---
[id number] Morning Activity Therapy group charted on paper forms and filed in Pt. chart.
[2018-07-26 15:50] VITALS: BP 113/76
--- NOTE | 2018-07-26 20:20 | NUR ---
Behavior Intervention Response and Plan: BIRP Note: Behavior: Assumed Care of patient, patient located in Day Room at shift change. Patient exhibited the following behavior Calm, Appropriate, Compliant. Brief assessment on rounds of vital signs, medication needs, lab studies, and pain. Treatment plan problems . Intervention: Patient assessed and the following interventions initiated safety checks 15 Minute Checks Cognitive Assessment , Head to toe Assessment , Medications. Response: After interactions and interventions patient responded in the following manner, Drowsy , Sleeping ,. Continue to assess behaviors and condition will continue to monitor throughout the shift as needed. Patient educated on ADL's, and hand hygiene. 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 Continue to assess patient for changes in above assessment. Monitor for medication needs, pain, and safety concerns. Hourly rounding performed to ensure safe environment.
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
[2018-07-26] MEDS: DIVALPROEX ER 250 MG TAB.ER.24H. PO SCH (20:33)
[2018-07-26] MEDS: HALOPERIDOL 5 MG TABLET PO SCH (20:33)
[2018-07-26] MEDS: ACETAMINOPHEN 500 MG TABLET PO PRN (20:45)
--- NOTE | 2018-07-26 22:24 | PDOC ---
Exam Note: Rick Note: Please also refer to the separate dictated note~for this date of service dictated separately.~Patient seen individually. Discussed the patient with Nursing staff reviewed the chart.~Reviewed interim history and current functioning. Reviewed vital signs,~Labs/ Radiology~and current medications noted below. Continue current treatment with the changes noted in the dictated addendum note Assessment: Vital Signs: Vital Signs Date Time Temp Pulse Resp B/P (MAP) Pulse Ox O2 Delivery O2 Flow Rate FiO2 07/26/18 17:12 73 113/76 07/26/18 15:50 97.4 16 95 07/25/18 05:36 Room Air I&O Intake and Output 07/26/18 06:59 Intake Total 1680 ml Balance 1680 ml Intake Oral 1680 ml Labs: Laboratory Tests Test 07/26/18 06:49 White Blood Count 6.0 x10^3/uL (4.0-11.0) Red Blood Count 4.47 x10^6/uL (4.30-5.70) Hemoglobin 13.9 g/dL (13.0-17.5) Hematocrit 41.7 % (39.0-53.0) Mean Corpuscular Volume 93 fL (79-100) Mean Corpuscular Hemoglobin 31 pg (25-35) Mean Corpuscular Hemoglobin Concent 33 g/dL (31-37) Red Cell Distribution Width 14.8 % (11.5-14.5) H Platelet Count 170 x10^3/uL (140-400) Neutrophils (%) (Auto) 50 % (31-73) Lymphocytes (%) (Auto) 31 % (24-48) Monocytes (%) (Auto) 16 % (0-9) H Eosinophils (%) (Auto) 3 % (0-3) Basophils (%) (Auto) 1 % (0-3) Neutrophils # (Auto) 3.0 x10^3uL (1.8-7.7) Lymphocytes # (Auto) 1.9 x10^3/uL (1.0-4.8) Monocytes # (Auto) 0.9 x10^3/uL (0.0-1.1) Eosinophils # (Auto) 0.2 x10^3/uL (0.0-0.7) Basophils # (Auto) 0.0 x10^3/uL (0.0-0.2) Sodium Level 142 mmol/L (136-145) Potassium Level 4.2 mmol/L (3.5-5.1) Chloride Level 103 mmol/L (98-107) Carbon Dioxide Level 32 mmol/L (21-32) Anion Gap 7 (6-14) Blood Urea Nitrogen 21 mg/dL (8-26) Creatinine 1.1 mg/dL (0.7-1.3) Estimated GFR (Cockcroft-Gault) 66.4 BUN/Creatinine Ratio 19 (6-20) Glucose Level 83 mg/dL (70-99) Calcium Level 8.6 mg/dL (8.5-10.1) Total Bilirubin 0.3 mg/dL (0.2-1.0) Aspartate Amino Transferase (AST) 12 U/L (15-37) L Alanine Aminotransferase (ALT) 17 U/L (16-63) Alkaline Phosphatase 91 U/L (46-116) Total Protein 6.3 g/dL (6.4-8.2) L Albumin 3.0 g/dL (3.4-5.0) L Albumin/Globulin Ratio 0.9 (1.0-1.7) L Current Medications: Meds: Current Medications Acetaminophen (Tylenol) 650 mg PRN Q6HRS PRN PO PAIN / TEMP; Start 07/13/18 at 21:00; Status Cancel Multi-Ingredient Ointment (Analgesic [place]) 1 kiara PRN QID PRN TP MUSCLE PAIN Last administered on 07/14/18at 11:30; Start 07/13/18 at 21:00 Al Hydroxide/Mg Hydroxide (Mylanta Plus Xs) 15 ml PRN AFTMEALHC PRN PO DYSPEPSIA; Start 07/13/18 at 21:00 Magnesium Hydroxide (Milk Of Magnesia) 2,400 mg PRN QHS PRN PO CONSTIPATION; Start 07/13/18 at 21:00 Clonazepam (KlonoPIN) 0.5 mg PRN DAILY PRN PO ANXIETY / AGITATION Last administered on 07/14/18at 07:54; Start 07/14/18 at 00:30 Furosemide (Lasix) 20 mg DAILY PO Last administered on 07/19/18at 08:03; Start 07/14/18 at 09:00; Stop 07/19/18 at 19:00; Status DC Levothyroxine Sodium (Synthroid) 100 mcg DAILYAC PO Last administered on 07:53; Start 07/14/18 at 07:30; Stop 07/14/18 at 07:57; Status DC Risperidone (RisperDAL CONSTA) 50 mg Q2WKS IM Last administered on 07/20/18 08 :32; Start 07/20/18 at 09:00; Stop 07/25/18 at 19:19; Status DC Sertraline HCl (Zoloft) 100 mg HS PO Last administered on 07/16/18 19:44; Start 07/14/18 at 21:00; Stop 07/17/18 at 19:12; Status DC Acetaminophen (Tylenol) 500 mg PRN Q6HRS PRN PO MILD PAIN / TEMP Last administered on 07/26/18 20:45; Start 07/14/18 at 00:30 Aspirin (Children'S Aspirin) 81 mg DAILYWBKFT PO Last administered on 07:53; Start 07/14/18 at 08:00 Clonidine HCl (Catapres) 0.2 mg BIDWMEALS PO Last administered on 07/26/18 17: 12; Start 07/14/18 at 08:00 Divalproex Sodium (Depakote Er) 1,000 mg QHS PO Last administered on 07/14/18 19:33; Start 07/14/18 at 21:00; Stop 07/15/18 at 19:35; Status DC Finasteride (Proscar) 5 mg DAILY PO Last administered on 07/26/18 07:54; Start 07/14/18 at 09:00 Guaifenesin (Robitussin Dm) 5 ml PRN Q8HRS PRN PO COUGH; Start 07/14/18 at 00: 30 Non-Formulary Medication (Menthol (Biofreeze)) 1 kiara QIDPRN PRN TP PAIN; Start 07/14/18 at 00:30; Status UNV Pantoprazole Sodium (Protonix) 40 mg DAILYAC PO Last administered on 07/26/18 07:53; Start 07/14/18 at 07:30 Levothyroxine Sodium (Synthroid) 100 mcg DAILY06 PO Last administered on 05:22; Start 07/15/18 at 06:00 Risperidone (RisperDAL CONSTA) 50 mg Q2WKS IM ; Start 07/20/18 at 09:00; Stop at 09:00; Status DC Meloxicam (Mobic) 15 mg DAILY PO Last administered on 07/26/18 07:52; Start at 09:00 Divalproex Sodium (Depakote Er) 1,250 mg QHS PO Last administered on 07/26/18 20:33; Start 07/15/18 at 21:00 Haloperidol (Haldol) 2 mg HS PO ; Start 07/15/18 at 21:00; Stop 07/15/18 at 21: 00; Status DC Haloperidol Lactate (HALDOL 10mg ORAL CONC) 2 mg HS PO Last administered on 19:14; Start 07/15/18 at 21:00; Stop 07/20/18 at 18:42; Status DC Fluvoxamine Maleate (Luvox) 25 mg HS PO Last administered on 07/19/18 19:14; Start 07/17/18 at 21:00; Stop 07/20/18 at 20:59; Status DC Fluvoxamine Maleate (Luvox) 50 mg HS PO Last administered on 07/23/18 20:39; Start 07/20/18 at 21:00; Stop 07/23/18 at 21:14; Status DC Furosemide (Lasix) 40 mg DAILY PO Last administered on 07/26/18 07:52; Start 07/20/18 at 09:00 Haloperidol (Haldol) 5 mg HS PO Last administered on 07/24/18 20:09; Start at 21:00; Stop 07/25/18 at 19:19; Status DC Fluvoxamine Maleate (Luvox) 75 mg HS PO Last administered on 07/26/18 20:32; Start 07/23/18 at 21:30 Haloperidol (Haldol) 7.5 mg HS PO Last administered on 07/26/18 20:33; Start 07/25/18 at 21:00 Active Scripts Active Reported Zoloft (Sertraline Hcl) 100 Mg Tablet 100 Mg PO HS Risperdal Consta (Risperidone Microspheres) 50 Mg/2 Ml Disp.syrin 50 Mg IM Q2WKS Prilosec Otc (Omeprazole Magnesium) 20 Mg Tablet.dr 40 Mg PO DAILY Biofreeze (Menthol) 118 Ml Gel..ml. 1 Kiara TP QIDPRN PRN Synthroid (Levothyroxine Sodium) 100 Mcg Tablet 100 Mcg PO DAILYAC Lasix (Furosemide) 20 Mg Tablet 20 Mg PO DAILY Finasteride 5 Mg Tablet 5 Mg PO DAILY Divalproex Sodium Er (Divalproex Sodium) 500 Mg Tab.er.24h 1,000 Mg PO HS Robitussin Cough-Chest Dm Liq (Guaifenesin/Dextromethorphan) 237 Ml Liquid 5 Ml PO PRN Q8HRS PRN Clonazepam 0.5 Mg Tablet 0.5 Mg PO PRN DAILY PRN Clonidine Hcl 0.2 Mg Tablet 0.2 Mg PO BIDWMEALS Aspirin 81 Mg Tab.chew 81 Mg PO DAILY Acetaminophen 500 Mg Tablet 500 Mg PO PRN Q6HRS PRN I have reviewed the current psychotropics carefully including drug interactions. Risk benefit ratio favors no change other than as noted in my dictated progress note. Diagnosis: Problems: (1) Altered mental status (2) Anxiety disorder (3) Psychosis, atypical (4) Major depressive disorder, recurrent episode (5) Mild cognitive impairment (6) Schizoaffective disorder, chronic condition with acute exacerbation JESSICA QUINTERO MD Jul 26, 2018 22:24
[2018-07-27 05:44] VITALS: BP 136/88
[2018-07-27] MEDS: ACETAMINOPHEN 500 MG TABLET PO PRN (06:10)
[2018-07-27] MEDS: LEVOTHYROXINE 100 MCG TABLET PO SCH (06:10)
[2018-07-27] MEDS: PANTOPRAZOLE 40 MG TABLET. PO SCH (07:45)
[2018-07-27] MEDS: FUROSEMIDE 40 MG TABLET PO SCH (07:45)
[2018-07-27] MEDS: ASPIRIN 81 MG TAB.CHEW PO SCH (07:45)
[2018-07-27] MEDS: MELOXICAM 15 MG TABLET. PO SCH (07:45)
[2018-07-27] MEDS: FINASTERIDE 5 MG TABLET PO SCH (07:46)
[2018-07-27] MEDS: cloNIDine HCL 0.2 MG TABLET PO SCH ×2 (07:46→17:04)
--- NOTE | 2018-07-27 09:15 | NUR ---
WEEKLY ACTIVITY THERAPY NOTE Date of Admission: 07/13/2018 Date of AT Assessment: 07/16/2018 Goal aimed:to increase engagement Initial goal: Pt. will participate in at least one Activity Therapy group per day. Weekly progress towards goal: did not meet Group participation level: Moderate Behaviors observed: full participation in groups when present in groups. Pleasant, social, sleeps or in room often Plan: no change to goal
--- NOTE | 2018-07-27 09:45 | NUR ---
Behavior Intervention Response and Plan: BIRP Note: Behavior: Assumed Care of patient, patient located in Patient Room at shift change. Patient exhibited the following behavior Interactive, Disorganized, Hallucinating. Brief assessment on rounds of vital signs, medication needs, lab studies, and pain. Treatment plan problems 1 & 2. Intervention: Patient assessed and the following interventions initiated safety checks 15 Minute Checks Cognitive Assessment , Head to toe Assessment , Medications. Response: After interactions and interventions patient responded in the following manner, Calm , Appropriate ,Hallucinating. Continue to assess behaviors and condition will continue to monitor throughout the shift as needed. Patient educated on ADL's, and hand hygiene. 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 Continue to assess patient for changes in above assessment. Monitor for medication needs, pain, and safety concerns. Hourly rounding performed to ensure safe environment.
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
--- NOTE | 2018-07-27 15:25 | NUR ---
SW spoke with pt about having him discharge earlier within next week. SW went over pt return home and need for continued services so that he can maintain stable at home. SW discussed having [facility] [place] services, in which they can provide continued medication management, case management and options to attend their day program. Pt agreed to talk to the home office representative for services, as well as his ability to return home next week.
[2018-07-27 16:12] VITALS: BP 169/84
[2018-07-27 16:36] VITALS: BP 157/99
--- NOTE | 2018-07-27 20:20 | NUR ---
Behavior Intervention Response and Plan: BIRP Note: Behavior: Assumed Care of patient, patient located in Day Room at shift change. Patient exhibited the following behavior Interactive, Cooperative, Social. Brief assessment on rounds of vital signs, medication needs, lab studies, and pain. Treatment plan problems . Intervention: Patient assessed and the following interventions initiated safety checks 15 Minute Checks Cognitive Assessment , Head to toe Assessment , Medications. Response: After interactions and interventions patient responded in the following manner, Drowsy , Calm ,Interactive. Continue to assess behaviors and condition will continue to monitor throughout the shift as needed. Patient educated on ADL's, and hand hygiene. 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 Continue to assess patient for changes in above assessment. Monitor for medication needs, pain, and safety concerns. Hourly rounding performed to ensure safe environment.
[2018-07-27] MEDS: DIVALPROEX ER 250 MG TAB.ER.24H. PO SCH (20:22)
[2018-07-27] MEDS: HALOPERIDOL 5 MG TABLET PO SCH (20:22)
[2018-07-27] MEDS: DICLOFENAC SODIUM 1% TOPICAL GEL 100GM TUBE. TP SCH (20:44)
--- NOTE | 2018-07-27 22:23 | PDOC ---
Exam Note: Rick Note: Please also refer to the separate dictated note~for this date of service dictated separately.~Patient seen individually. Discussed the patient with Nursing staff reviewed the chart.~Reviewed interim history and current functioning. Reviewed vital signs,~Labs/ Radiology~and current medications noted below. Continue current treatment with the changes noted in the dictated addendum note Assessment: Vital Signs: Vital Signs Date Time Temp Pulse Resp B/P (MAP) Pulse Ox O2 Delivery O2 Flow Rate FiO2 07/27/18 17:04 61 157/99 07/27/18 16:36 97.4 24 95 Room Air I&O Intake and Output 07/27/18 07:00 Intake Total 2040 ml Balance 2040 ml Intake Oral 2040 ml # Voids 1 Current Medications: Meds: Current Medications Acetaminophen (Tylenol) 650 mg PRN Q6HRS PRN PO PAIN / TEMP; Start 07/13/18 at 21:00; Status Cancel Multi-Ingredient Ointment (Analgesic Russell) 1 kiara PRN QID PRN TP MUSCLE PAIN Last administered on 07/14/18at 11:30; Start 07/13/18 at 21:00 Al Hydroxide/Mg Hydroxide (Mylanta Plus Xs) 15 ml PRN AFTMEALHC PRN PO DYSPEPSIA; Start 07/13/18 at 21:00 Magnesium Hydroxide (Milk Of Magnesia) 2,400 mg PRN QHS PRN PO CONSTIPATION; Start 07/13/18 at 21:00 Clonazepam (KlonoPIN) 0.5 mg PRN DAILY PRN PO ANXIETY / AGITATION Last administered on 07/14/18at 07:54; Start 07/14/18 at 00:30 Furosemide (Lasix) 20 mg DAILY PO Last administered on 07/19/18at 08:03; Start 07/14/18 at 09:00; Stop 07/19/18 at 19:00; Status DC Levothyroxine Sodium (Synthroid) 100 mcg DAILYAC PO Last administered on 07:53; Start 07/14/18 at 07:30; Stop 07/14/18 at 07:57; Status DC Risperidone (RisperDAL CONSTA) 50 mg Q2WKS IM Last administered on 07/20/18 08 :32; Start 07/20/18 at 09:00; Stop 07/25/18 at 19:19; Status DC Sertraline HCl (Zoloft) 100 mg HS PO Last administered on 07/16/18 19:44; Start 07/14/18 at 21:00; Stop 07/17/18 at 19:12; Status DC Acetaminophen (Tylenol) 500 mg PRN Q6HRS PRN PO MILD PAIN / TEMP Last administered on 07/27/18 06:10; Start 07/14/18 at 00:30 Aspirin (Children'S Aspirin) 81 mg DAILYWBKFT PO Last administered on 07:45; Start 07/14/18 at 08:00 Clonidine HCl (Catapres) 0.2 mg BIDWMEALS PO Last administered on 07/27/18 17: 04; Start 07/14/18 at 08:00 Divalproex Sodium (Depakote Er) 1,000 mg QHS PO Last administered on 07/14/18at 19:33; Start 07/14/18 at 21:00; Stop 07/15/18 at 19:35; Status DC Finasteride (Proscar) 5 mg DAILY PO Last administered on 07/27/18 07:46; Start 07/14/18 at 09:00 Guaifenesin (Robitussin Dm) 5 ml PRN Q8HRS PRN PO COUGH; Start 07/14/18 at 00: 30 Non-Formulary Medication (Menthol (Biofreeze)) 1 kiara QIDPRN PRN TP PAIN; Start 07/14/18 at 00:30; Status UNV Pantoprazole Sodium (Protonix) 40 mg DAILYAC PO Last administered on 07/27/18 07:45; Start 07/14/18 at 07:30 Levothyroxine Sodium (Synthroid) 100 mcg DAILY06 PO Last administered on 06:10; Start 07/15/18 at 06:00 Risperidone (RisperDAL CONSTA) 50 mg Q2WKS IM ; Start 07/20/18 at 09:00; Stop at 09:00; Status DC Meloxicam (Mobic) 15 mg DAILY PO Last administered on 07/27/18at 07:45; Start at 09:00 Divalproex Sodium (Depakote Er) 1,250 mg QHS PO Last administered on 07/27/18 20:22; Start 07/15/18 at 21:00 Haloperidol (Haldol) 2 mg HS PO ; Start 07/15/18 at 21:00; Stop 07/15/18 at 21: 00; Status DC Haloperidol Lactate (HALDOL 10mg ORAL CONC) 2 mg HS PO Last administered on at 19:14; Start 07/15/18 at 21:00; Stop 07/20/18 at 18:42; Status DC Fluvoxamine Maleate (Luvox) 25 mg HS PO Last administered on 07/19/18 19:14; Start 07/17/18 at 21:00; Stop 07/20/18 at 20:59; Status DC Fluvoxamine Maleate (Luvox) 50 mg HS PO Last administered on 07/23/18 20:39; Start 07/20/18 at 21:00; Stop 07/23/18 at 21:14; Status DC Furosemide (Lasix) 40 mg DAILY PO Last administered on 07/27/18 07:45; Start 07/20/18 at 09:00 Haloperidol (Haldol) 5 mg HS PO Last administered on 07/24/18 20:09; Start at 21:00; Stop 07/25/18 at 19:19; Status DC Fluvoxamine Maleate (Luvox) 75 mg HS PO Last administered on 07/27/18 20:23; Start 07/23/18 at 21:30 Haloperidol (Haldol) 7.5 mg HS PO Last administered on 07/27/18 20:22; Start 07/25/18 at 21:00 Diclofenac Sodium (Voltaren) 1 kiara BID TP Last administered on 07/27/18at 20:44 ; Start 07/27/18 at 21:00 Active Scripts Active Reported Zoloft (Sertraline Hcl) 100 Mg Tablet 100 Mg PO HS Risperdal Consta (Risperidone Microspheres) 50 Mg/2 Ml Disp.syrin 50 Mg IM Q2WKS Prilosec Otc (Omeprazole Magnesium) 20 Mg Tablet.dr 40 Mg PO DAILY Biofreeze (Menthol) 118 Ml Gel..ml. 1 Kiara TP QIDPRN PRN Synthroid (Levothyroxine Sodium) 100 Mcg Tablet 100 Mcg PO DAILYAC Lasix (Furosemide) 20 Mg Tablet 20 Mg PO DAILY Finasteride 5 Mg Tablet 5 Mg PO DAILY Divalproex Sodium Er (Divalproex Sodium) 500 Mg Tab.er.24h 1,000 Mg PO HS Robitussin Cough-Chest Dm Liq (Guaifenesin/Dextromethorphan) 237 Ml Liquid 5 Ml PO PRN Q8HRS PRN Clonazepam 0.5 Mg Tablet 0.5 Mg PO PRN DAILY PRN Clonidine Hcl 0.2 Mg Tablet 0.2 Mg PO BIDWMEALS Aspirin 81 Mg Tab.chew 81 Mg PO DAILY Acetaminophen 500 Mg Tablet 500 Mg PO PRN Q6HRS PRN I have reviewed the current psychotropics carefully including drug interactions. Risk benefit ratio favors no change other than as noted in my dictated progress note. Diagnosis: Problems: (1) Altered mental status (2) Anxiety disorder (3) Psychosis, atypical (4) Major depressive disorder, recurrent episode (5) Mild cognitive impairment (6) Schizoaffective disorder, chronic condition with acute exacerbation JESSICA QUINTERO MD Jul 27, 2018 22:23
[2018-07-28 05:55] VITALS: BP 167/85
[2018-07-28] MEDS: LEVOTHYROXINE 100 MCG TABLET PO SCH (06:01)
[2018-07-28] MEDS: ASPIRIN 81 MG TAB.CHEW PO SCH (07:57)
[2018-07-28] MEDS: MELOXICAM 15 MG TABLET. PO SCH (07:57)
[2018-07-28] MEDS: FINASTERIDE 5 MG TABLET PO SCH (07:57)
[2018-07-28] MEDS: DICLOFENAC SODIUM 1% TOPICAL GEL 100GM TUBE. TP SCH ×2 (07:57→19:26)
[2018-07-28] MEDS: PANTOPRAZOLE 40 MG TABLET. PO SCH (07:57)
[2018-07-28] MEDS: cloNIDine HCL 0.2 MG TABLET PO SCH ×2 (07:58→16:54)
[2018-07-28] MEDS: FUROSEMIDE 40 MG TABLET PO SCH (07:58)
--- NOTE | 2018-07-28 11:26 | NUR ---
SW faxed over [facility] referral so that pt may be able to receive services. SW will work on getting pt services until [facility] is able to get pt settled.
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
[2018-07-28 15:45] VITALS: BP 144/94
--- NOTE | 2018-07-28 18:05 | NUR ---
Behavior Intervention Response and Plan: BIRP Note: Behavior: Assumed Care of patient, patient located in Dining Room at shift change. Patient exhibited the following behavior Calm, Compliant, Cooperative. Brief assessment on rounds of vital signs, medication needs, lab studies, and pain. Treatment plan problems: alteration in thought prcoess and fall risk. Intervention: Patient assessed and the following interventions initiated safety checks 15 Minute Checks Cognitive Assessment , Head to toe Assessment , Medications. Response: After interactions and interventions patient responded in the following manner, Compliant , Calm ,Appropriate. Continue to assess behaviors and condition will continue to monitor throughout the shift as needed. Patient educated on ADL's, and hand hygiene. Plan: Continue to monitor Master Treatment Plan for patient's progress toward short term goals of Decreased Anxiety, Decreased Agitation, correction goals to return to previous living setting vs placement. Continue to assess patient for changes in above assessment. Monitor for medication needs, pain, and safety concerns. Hourly rounding performed to ensure safe environment.
[2018-07-28] MEDS: DIVALPROEX ER 250 MG TAB.ER.24H. PO SCH (19:24)
[2018-07-28] MEDS: HALOPERIDOL 5 MG TABLET PO SCH (19:25)
--- NOTE | 2018-07-28 20:39 | PN ---
DATE: 07/26/2018 PSYCHIATRIC PROGRESS NOTE This late entry 07/26/2018 covers elements not covered in my initial note. SUBJECTIVE: I met with the patient in the evening. The patient slept 2 hours previous night. He still has some intermittent hallucinations where he feels someone spraying things on him, talking to him, but less persistent with that since we have increased the Haldol to 7.5 mg p.o. at bedtime. REVIEW OF SYSTEMS: No CV, , pulmonary, eye system symptoms on review. Reliability fair. I met with him in his room. MENTAL STATUS EXAM: Reasonably oriented. Speech coherent, has some latency. Abstraction fair, computation impaired. Mood and affect somewhat withdrawn. LABORATORY DATA: Reviewed. IMPRESSION: Unchanged from initial note. PLAN: No change from initial note. MAN Nathalie QUINTERO MD DR: VIV/prakash JOB#: [id number] / [id number]
--- NOTE | 2018-07-28 20:40 | PN ---
DATE: 07/27/2018 PSYCHIATRIC PROGRESS NOTE This late entry 07/27/2018 covers elements not covered in my initial note. SUBJECTIVE: I met with the patient in the evening. The patient slept 7-1/2 hours previous night. The patient was also staffed at a treatment team meeting with the entire team in the morning. Appetite 100%. REVIEW OF SYSTEMS: He remains somewhat withdrawn, but no CV, , pulmonary, eye system symptoms on review. Still has intermittent hallucinations. MENTAL STATUS EXAM: Reasonably oriented. Speech coherent, has some latency. Abstraction fair, computation impaired, language function intact, attention span short. Mood and affect withdrawn, but otherwise improved, less psychotic, even though the symptoms persist. LABORATORY DATA: Reviewed. IMPRESSION: Unchanged from initial note. PLAN: No change from initial note. MAN Nathalie QUINTERO MD DR: VIV/prakash JOB#: [id number] / [id number]
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
--- NOTE | 2018-07-28 21:44 | PDOC ---
Exam Note: Rick Note: Please also refer to the separate dictated note~for this date of service dictated separately.~Patient seen individually. Discussed the patient with Nursing staff reviewed the chart.~Reviewed interim history and current functioning. Reviewed vital signs,~Labs/ Radiology~and current medications noted below. Continue current treatment with the changes noted in the dictated addendum note Assessment: Vital Signs: Vital Signs Date Time Temp Pulse Resp B/P (MAP) Pulse Ox O2 Delivery O2 Flow Rate FiO2 07/28/18 16:54 55 144/94 07/28/18 15:45 97.6 20 93 Room Air I&O Intake and Output 07/28/18 06:59 Intake Total 1200 ml Balance 1200 ml Intake Oral 1200 ml # Voids 1 Current Medications: Meds: Current Medications Acetaminophen (Tylenol) 650 mg PRN Q6HRS PRN PO PAIN / TEMP; Start 07/13/18 at 21:00; Status Cancel Multi-Ingredient Ointment (Analgesic [place]) 1 kiara PRN QID PRN TP MUSCLE PAIN Last administered on 07/14/18at 11:30; Start 07/13/18 at 21:00 Al Hydroxide/Mg Hydroxide (Mylanta Plus Xs) 15 ml PRN AFTMEALHC PRN PO DYSPEPSIA; Start 07/13/18 at 21:00 Magnesium Hydroxide (Milk Of Magnesia) 2,400 mg PRN QHS PRN PO CONSTIPATION; Start 07/13/18 at 21:00 Clonazepam (KlonoPIN) 0.5 mg PRN DAILY PRN PO ANXIETY / AGITATION Last administered on 07/14/18at 07:54; Start 07/14/18 at 00:30 Furosemide (Lasix) 20 mg DAILY PO Last administered on 07/19/18at 08:03; Start 07/14/18 at 09:00; Stop 07/19/18 at 19:00; Status DC Levothyroxine Sodium (Synthroid) 100 mcg DAILYAC PO Last administered on at 07:53; Start 07/14/18 at 07:30; Stop 07/14/18 at 07:57; Status DC Risperidone (RisperDAL CONSTA) 50 mg Q2WKS IM Last administered on 07/20/18at 08 :32; Start 07/20/18 at 09:00; Stop 07/25/18 at 19:19; Status DC Sertraline HCl (Zoloft) 100 mg HS PO Last administered on 07/16/18at 19:44; Start 07/14/18 at 21:00; Stop 07/17/18 at 19:12; Status DC Acetaminophen (Tylenol) 500 mg PRN Q6HRS PRN PO MILD PAIN / TEMP Last administered on 07/27/18at 06:10; Start 07/14/18 at 00:30 Aspirin (Children'S Aspirin) 81 mg DAILYWBKFT PO Last administered on 07/28/18 07:57; Start 07/14/18 at 08:00 Clonidine HCl (Catapres) 0.2 mg BIDWMEALS PO Last administered on 07/28/18 16: 54; Start 07/14/18 at 08:00 Divalproex Sodium (Depakote Er) 1,000 mg QHS PO Last administered on 07/14/18 19:33; Start 07/14/18 at 21:00; Stop 07/15/18 at 19:35; Status DC Finasteride (Proscar) 5 mg DAILY PO Last administered on 07/28/18 07:57; Start 07/14/18 at 09:00 Guaifenesin (Robitussin Dm) 5 ml PRN Q8HRS PRN PO COUGH; Start 07/14/18 at 00: 30 Non-Formulary Medication (Menthol (Biofreeze)) 1 kiara QIDPRN PRN TP PAIN; Start 07/14/18 at 00:30; Status UNV Pantoprazole Sodium (Protonix) 40 mg DAILYAC PO Last administered on 07/28/18at 07:57; Start 07/14/18 at 07:30 Levothyroxine Sodium (Synthroid) 100 mcg DAILY06 PO Last administered on 06:01; Start 07/15/18 at 06:00 Risperidone (RisperDAL CONSTA) 50 mg Q2WKS IM ; Start 07/20/18 at 09:00; Stop at 09:00; Status DC Meloxicam (Mobic) 15 mg DAILY PO Last administered on 07/28/18at 07:57; Start at 09:00 Divalproex Sodium (Depakote Er) 1,250 mg QHS PO Last administered on 07/28/18 19:24; Start 07/15/18 at 21:00 Haloperidol (Haldol) 2 mg HS PO ; Start 07/15/18 at 21:00; Stop 07/15/18 at 21: 00; Status DC Haloperidol Lactate (HALDOL 10mg ORAL CONC) 2 mg HS PO Last administered on at 19:14; Start 07/15/18 at 21:00; Stop 07/20/18 at 18:42; Status DC Fluvoxamine Maleate (Luvox) 25 mg HS PO Last administered on 07/19/18 19:14; Start 07/17/18 at 21:00; Stop 07/20/18 at 20:59; Status DC Fluvoxamine Maleate (Luvox) 50 mg HS PO Last administered on 07/23/18at 20:39; Start 07/20/18 at 21:00; Stop 07/23/18 at 21:14; Status DC Furosemide (Lasix) 40 mg DAILY PO Last administered on 07/28/18at 07:58; Start at 09:00 Haloperidol (Haldol) 5 mg HS PO Last administered on 07/24/18 20:09; Start at 21:00; Stop 07/25/18 at 19:19; Status DC Fluvoxamine Maleate (Luvox) 75 mg HS PO Last administered on 07/28/18 19:24; Start 07/23/18 at 21:30 Haloperidol (Haldol) 7.5 mg HS PO Last administered on 07/28/18 19:25; Start at 21:00 Diclofenac Sodium (Voltaren) 1 kiara BID TP Last administered on 07/28/18at 19:26; Start 07/27/18 at 21:00 Lidocaine (Lidoderm) 2 patch DAILY TD ; Start 07/29/18 at 09:00 Active Scripts Active Reported Zoloft (Sertraline Hcl) 100 Mg Tablet 100 Mg PO HS Risperdal Consta (Risperidone Microspheres) 50 Mg/2 Ml Disp.syrin 50 Mg IM Q2WKS Prilosec Otc (Omeprazole Magnesium) 20 Mg Tablet.dr 40 Mg PO DAILY Biofreeze (Menthol) 118 Ml Gel..ml. 1 Kiara TP QIDPRN PRN Synthroid (Levothyroxine Sodium) 100 Mcg Tablet 100 Mcg PO DAILYAC Lasix (Furosemide) 20 Mg Tablet 20 Mg PO DAILY Finasteride 5 Mg Tablet 5 Mg PO DAILY Divalproex Sodium Er (Divalproex Sodium) 500 Mg Tab.er.24h 1,000 Mg PO HS Robitussin Cough-Chest Dm Liq (Guaifenesin/Dextromethorphan) 237 Ml Liquid 5 Ml PO PRN Q8HRS PRN Clonazepam 0.5 Mg Tablet 0.5 Mg PO PRN DAILY PRN Clonidine Hcl 0.2 Mg Tablet 0.2 Mg PO BIDWMEALS Aspirin 81 Mg Tab.chew 81 Mg PO DAILY Acetaminophen 500 Mg Tablet 500 Mg PO PRN Q6HRS PRN I have reviewed the current psychotropics carefully including drug interactions. Risk benefit ratio favors no change other than as noted in my dictated progress note. Diagnosis: Problems: (1) Altered mental status (2) Anxiety disorder (3) Psychosis, atypical (4) Major depressive disorder, recurrent episode (5) Mild cognitive impairment (6) Schizoaffective disorder, chronic condition with acute exacerbation JESSICA QUINTERO MD Jul 28, 2018 21:44
[2018-07-29] MEDS ORDERED: LIDOCAINE (700MG/PATCH) PATCH. TD SCH ×4 (01:45→21:00)
[2018-07-29 05:31] VITALS: BP 145/95
[2018-07-29] MEDS: LEVOTHYROXINE 100 MCG TABLET PO SCH (06:22)
[2018-07-29] MEDS: MELOXICAM 15 MG TABLET. PO SCH (08:37)
[2018-07-29] MEDS: FINASTERIDE 5 MG TABLET PO SCH (08:37)
[2018-07-29] MEDS: FUROSEMIDE 40 MG TABLET PO SCH (08:37)
[2018-07-29] MEDS: PANTOPRAZOLE 40 MG TABLET. PO SCH (08:37)
[2018-07-29] MEDS: cloNIDine HCL 0.2 MG TABLET PO SCH ×2 (08:38→17:08)
[2018-07-29] MEDS: ASPIRIN 81 MG TAB.CHEW PO SCH (08:38)
[2018-07-29] MEDS: DICLOFENAC SODIUM 1% TOPICAL GEL 100GM TUBE. TP SCH ×2 (08:50→20:07)
[2018-07-29 15:28] VITALS: BP 151/90
--- NOTE | 2018-07-29 15:52 | NUR ---
Patient has been in his room or in the day room throughout the shift. This morning patient denied being sprayed. This nurse just reassessed patient's hallucinations/delusions. Patient stated, "yeah, he started spraying just after lunch time and has been off and on. That's how he usually does it. " Addendum: 07/29/18 at 1559 by LEIGHA STEVENS RN RN Note continued: This nurse asked pt if the invisible man has been saying anything or whistling and patient denied.
[2018-07-29] MEDS: DIVALPROEX ER 250 MG TAB.ER.24H. PO SCH (20:02)
[2018-07-29] MEDS: HALOPERIDOL 5 MG TABLET PO SCH (20:02)
--- NOTE | 2018-07-29 21:45 | NUR ---
PT IN ROOM RESTING. PT ALERT AND ORIENTED X 4. NO COMPLAINTS OF SEEING MAN OR BEING SPRAYED. PT PLEASANT AT THIS TIME.
--- NOTE | 2018-07-29 21:47 | PDOC ---
Exam Note: Rick Note: Please also refer to the separate dictated note~for this date of service dictated separately.~Patient seen individually. Discussed the patient with Nursing staff reviewed the chart.~Reviewed interim history and current functioning. Reviewed vital signs,~Labs/ Radiology~and current medications noted below. Continue current treatment with the changes noted in the dictated addendum note Assessment: Vital Signs: Vital Signs Date Time Temp Pulse Resp B/P (MAP) Pulse Ox O2 Delivery O2 Flow Rate FiO2 07/29/18 17:08 60 151/90 07/29/18 15:28 98.1 17 96 07/28/18 15:45 Room Air I&O Intake and Output 07/29/18 06:59 Intake Total 1560 ml Balance 1560 ml Intake Oral 1560 ml Current Medications: Meds: Current Medications Acetaminophen (Tylenol) 650 mg PRN Q6HRS PRN PO PAIN / TEMP; Start 07/13/18 at 21:00; Status Cancel Multi-Ingredient Ointment (Analgesic [place]) 1 kiara PRN QID PRN TP MUSCLE PAIN Last administered on 07/14/18at 11:30; Start 07/13/18 at 21:00 Al Hydroxide/Mg Hydroxide (Mylanta Plus Xs) 15 ml PRN AFTMEALHC PRN PO DYSPEPSIA; Start 07/13/18 at 21:00 Magnesium Hydroxide (Milk Of Magnesia) 2,400 mg PRN QHS PRN PO CONSTIPATION; Start 07/13/18 at 21:00 Clonazepam (KlonoPIN) 0.5 mg PRN DAILY PRN PO ANXIETY / AGITATION Last administered on 07/14/18at 07:54; Start 07/14/18 at 00:30 Furosemide (Lasix) 20 mg DAILY PO Last administered on 07/19/18 08:03; Start 07/14/18 at 09:00; Stop 07/19/18 at 19:00; Status DC Levothyroxine Sodium (Synthroid) 100 mcg DAILYAC PO Last administered on 07:53; Start 07/14/18 at 07:30; Stop 07/14/18 at 07:57; Status DC Risperidone (RisperDAL CONSTA) 50 mg Q2WKS IM Last administered on 07/20/18 08 :32; Start 07/20/18 at 09:00; Stop 07/25/18 at 19:19; Status DC Sertraline HCl (Zoloft) 100 mg HS PO Last administered on 07/16/18 19:44; Start 07/14/18 at 21:00; Stop 07/17/18 at 19:12; Status DC Acetaminophen (Tylenol) 500 mg PRN Q6HRS PRN PO MILD PAIN / TEMP Last administered on 07/27/18 06:10; Start 07/14/18 at 00:30 Aspirin (Children'S Aspirin) 81 mg DAILYWBKFT PO Last administered on 07/29/18 08:38; Start 07/14/18 at 08:00 Clonidine HCl (Catapres) 0.2 mg BIDWMEALS PO Last administered on 07/29/18 17: 08; Start 07/14/18 at 08:00 Divalproex Sodium (Depakote Er) 1,000 mg QHS PO Last administered on 07/14/18 19:33; Start 07/14/18 at 21:00; Stop 07/15/18 at 19:35; Status DC Finasteride (Proscar) 5 mg DAILY PO Last administered on 07/29/18 08:37; Start 07/14/18 at 09:00 Guaifenesin (Robitussin Dm) 5 ml PRN Q8HRS PRN PO COUGH; Start 07/14/18 at 00: 30 Non-Formulary Medication (Menthol (Biofreeze)) 1 kiara QIDPRN PRN TP PAIN; Start 07/14/18 at 00:30; Status UNV Pantoprazole Sodium (Protonix) 40 mg DAILYAC PO Last administered on 07/29/18 08:37; Start 07/14/18 at 07:30 Levothyroxine Sodium (Synthroid) 100 mcg DAILY06 PO Last administered on 06:22; Start 07/15/18 at 06:00 Risperidone (RisperDAL CONSTA) 50 mg Q2WKS IM ; Start 07/20/18 at 09:00; Stop at 09:00; Status DC Meloxicam (Mobic) 15 mg DAILY PO Last administered on 07/29/18 08:37; Start at 09:00 Divalproex Sodium (Depakote Er) 1,250 mg QHS PO Last administered on 07/29/18 20:02; Start 07/15/18 at 21:00 Haloperidol (Haldol) 2 mg HS PO ; Start 07/15/18 at 21:00; Stop 07/15/18 at 21: 00; Status DC Haloperidol Lactate (HALDOL 10mg ORAL CONC) 2 mg HS PO Last administered on 19:14; Start 07/15/18 at 21:00; Stop 07/20/18 at 18:42; Status DC Fluvoxamine Maleate (Luvox) 25 mg HS PO Last administered on 07/19/18 19:14; Start 07/17/18 at 21:00; Stop 07/20/18 at 20:59; Status DC Fluvoxamine Maleate (Luvox) 50 mg HS PO Last administered on 07/23/18 20:39; Start 07/20/18 at 21:00; Stop 07/23/18 at 21:14; Status DC Furosemide (Lasix) 40 mg DAILY PO Last administered on 07/29/18 08:37; Start at 09:00 Haloperidol (Haldol) 5 mg HS PO Last administered on 07/24/18 20:09; Start at 21:00; Stop 07/25/18 at 19:19; Status DC Fluvoxamine Maleate (Luvox) 75 mg HS PO Last administered on 07/29/18 20:02; Start 07/23/18 at 21:30 Haloperidol (Haldol) 7.5 mg HS PO Last administered on 07/29/18 20:02; Start at 21:00 Diclofenac Sodium (Voltaren) 1 kiara BID TP Last administered on 07/29/18 20:07; Start 07/27/18 at 21:00 Lidocaine (Lidoderm) 2 patch DAILY TD ; Start 07/29/18 at 09:00; Stop 07/29/18 at 09:00; Status DC Lidocaine (Lidoderm) 2 patch DAILY TD ; Start 07/29/18 at 01:45; Stop 07/29/18 at 02:08; Status DC Lidocaine (Lidoderm) 4 patch HS TD ; Start 07/29/18 at 21:00; Stop 07/29/18 at 21: 00; Status DC Lidocaine (Lidoderm) 2 patch HS TD Last administered on 07/29/18at 20:11; Start 07/29/18 at 21:00 Miscellaneous (Lidoderm Patch Removal) 1 ea DAILY MC ; Start 07/30/18 at 09:00 Active Scripts Active Reported Zoloft (Sertraline Hcl) 100 Mg Tablet 100 Mg PO HS Risperdal Consta (Risperidone Microspheres) 50 Mg/2 Ml Disp.syrin 50 Mg IM Q2WKS Prilosec Otc (Omeprazole Magnesium) 20 Mg Tablet.dr 40 Mg PO DAILY Biofreeze (Menthol) 118 Ml Gel..ml. 1 Kiara TP QIDPRN PRN Synthroid (Levothyroxine Sodium) 100 Mcg Tablet 100 Mcg PO DAILYAC Lasix (Furosemide) 20 Mg Tablet 20 Mg PO DAILY Finasteride 5 Mg Tablet 5 Mg PO DAILY Divalproex Sodium Er (Divalproex Sodium) 500 Mg Tab.er.24h 1,000 Mg PO HS Robitussin Cough-Chest Dm Liq (Guaifenesin/Dextromethorphan) 237 Ml Liquid 5 Ml PO PRN Q8HRS PRN Clonazepam 0.5 Mg Tablet 0.5 Mg PO PRN DAILY PRN Clonidine Hcl 0.2 Mg Tablet 0.2 Mg PO BIDWMEALS Aspirin 81 Mg Tab.chew 81 Mg PO DAILY Acetaminophen 500 Mg Tablet 500 Mg PO PRN Q6HRS PRN I have reviewed the current psychotropics carefully including drug interactions. Risk benefit ratio favors no change other than as noted in my dictated progress note. Diagnosis: Problems: (1) Altered mental status (2) Anxiety disorder (3) Psychosis, atypical (4) Major depressive disorder, recurrent episode (5) Mild cognitive impairment (6) Schizoaffective disorder, chronic condition with acute exacerbation JESSICA QUINTERO MD Jul 29, 2018 21:47
[2018-07-30 05:43] VITALS: BP 153/97
[2018-07-30] MEDS: LEVOTHYROXINE 100 MCG TABLET PO SCH (06:08)
[2018-07-30] MEDS: cloNIDine HCL 0.2 MG TABLET PO SCH ×2 (07:47→17:12)
[2018-07-30] MEDS: ASPIRIN 81 MG TAB.CHEW PO SCH (07:47)
[2018-07-30] MEDS: PANTOPRAZOLE 40 MG TABLET. PO SCH (07:47)
[2018-07-30] MEDS: FUROSEMIDE 40 MG TABLET PO SCH (07:47)
[2018-07-30] MEDS: FINASTERIDE 5 MG TABLET PO SCH (07:47)
[2018-07-30] MEDS: MELOXICAM 15 MG TABLET. PO SCH (07:47)
[2018-07-30] MEDS: DICLOFENAC SODIUM 1% TOPICAL GEL 100GM TUBE. TP SCH ×2 (07:48→21:00)
[2018-07-30] MEDS: PATCH REMOVAL. MC SCH (07:49)
[2018-07-30 15:58] VITALS: BP 149/88
--- NOTE | 2018-07-30 17:49 | NUR ---
Behavior Intervention Response and Plan: BIRP Note: Behavior: Assumed Care of patient, patient located in Patient Room at shift change. Patient exhibited the following behavior Interactive, calm, compliant. Brief assessment on rounds of vital signs, medication needs, lab studies, and pain. Treatment plan problems 1 & 2. Intervention: Patient assessed and the following interventions initiated safety checks 15 Minute Checks Cognitive Assessment , Head to toe Assessment , Medications. Response: After interactions and interventions patient responded in the following manner, Calm , Appropriate , compliant. Continue to assess behaviors and condition will continue to monitor throughout the shift as needed. Patient educated on ADL's, and hand hygiene. Plan: Continue to monitor Master Treatment Plan for patient's progress toward short term goals of Medication Compliance, No harm To self/ others, superintendent terminal goals to return to previous living setting vs placement. Continue to assess patient for changes in above assessment. Monitor for medication needs, pain, and safety concerns. Hourly rounding performed to ensure safe environment.
[2018-07-30] MEDS: HALOPERIDOL 5 MG TABLET PO SCH (19:57)
[2018-07-30] MEDS: DIVALPROEX ER 250 MG TAB.ER.24H. PO SCH (19:57)
[2018-07-30] MEDS: LIDOCAINE (700MG/PATCH) PATCH. TD SCH (19:58)
--- NOTE | 2018-07-30 21:16 | PN ---
DATE: 07/28/2018 PSYCHIATRIC PROGRESS NOTE This late entry 07/28/2018 covers elements not covered in my initial note. SUBJECTIVE: I met with the patient in the evening. The patient slept 7-1/2 hours previous night. He still believes someone is throwing and spraying stuff on him, someone is underneath his bed and I processed this at some length with him individually in his room. REVIEW OF SYSTEMS: Otherwise, no CV, , pulmonary, eye, ENT system symptoms on review. MENTAL STATUS EXAM: Reasonably oriented. Speech is coherent, has some latency. Abstraction fair, computation impaired, language function intact, attention span short. Mood and affect somewhat withdrawn. LABORATORY DATA: Reviewed. IMPRESSION: Unchanged from initial note. PLAN: No change from initial note. MAN Nathalie QUINTERO MD DR: VIV/prakash JOB#: [id number] / [id number]
--- NOTE | 2018-07-30 22:32 | PDOC ---
Exam Note: Rick Note: Please also refer to the separate dictated note~for this date of service dictated separately.~Patient seen individually. Discussed the patient with Nursing staff reviewed the chart.~Reviewed interim history and current functioning. Reviewed vital signs,~Labs/ Radiology~and current medications noted below. Continue current treatment with the changes noted in the dictated addendum note Assessment: Vital Signs: Vital Signs Date Time Temp Pulse Resp B/P (MAP) Pulse Ox O2 Delivery O2 Flow Rate FiO2 07/30/18 17:12 53 149/88 07/30/18 15:58 97.5 18 95 07/30/18 05:43 Room Air I&O Intake and Output 07/30/18 06:59 Intake Total 1560 ml Balance 1560 ml Intake Oral 1560 ml Current Medications: Meds: Current Medications Acetaminophen (Tylenol) 650 mg PRN Q6HRS PRN PO PAIN / TEMP; Start 07/13/18 at 21:00; Status Cancel Multi-Ingredient Ointment (Analgesic [place]) 1 kiara PRN QID PRN TP MUSCLE PAIN Last administered on 07/14/18at 11:30; Start 07/13/18 at 21:00 Al Hydroxide/Mg Hydroxide (Mylanta Plus Xs) 15 ml PRN AFTMEALHC PRN PO DYSPEPSIA; Start 07/13/18 at 21:00 Magnesium Hydroxide (Milk Of Magnesia) 2,400 mg PRN QHS PRN PO CONSTIPATION; Start 07/13/18 at 21:00 Clonazepam (KlonoPIN) 0.5 mg PRN DAILY PRN PO ANXIETY / AGITATION Last administered on 07/14/18at 07:54; Start 07/14/18 at 00:30 Furosemide (Lasix) 20 mg DAILY PO Last administered on 07/19/18 08:03; Start 07/14/18 at 09:00; Stop 07/19/18 at 19:00; Status DC Levothyroxine Sodium (Synthroid) 100 mcg DAILYAC PO Last administered on 07:53; Start 07/14/18 at 07:30; Stop 07/14/18 at 07:57; Status DC Risperidone (RisperDAL CONSTA) 50 mg Q2WKS IM Last administered on 07/20/18 08 :32; Start 07/20/18 at 09:00; Stop 07/25/18 at 19:19; Status DC Sertraline HCl (Zoloft) 100 mg HS PO Last administered on 07/16/18 19:44; Start 07/14/18 at 21:00; Stop 07/17/18 at 19:12; Status DC Acetaminophen (Tylenol) 500 mg PRN Q6HRS PRN PO MILD PAIN / TEMP Last administered on 07/27/18 06:10; Start 07/14/18 at 00:30 Aspirin (Children'S Aspirin) 81 mg DAILYWBKFT PO Last administered on 07/30/18 07:47; Start 07/14/18 at 08:00 Clonidine HCl (Catapres) 0.2 mg BIDWMEALS PO Last administered on 07/30/18 17: 12; Start 07/14/18 at 08:00 Divalproex Sodium (Depakote Er) 1,000 mg QHS PO Last administered on 07/14/18 19:33; Start 07/14/18 at 21:00; Stop 07/15/18 at 19:35; Status DC Finasteride (Proscar) 5 mg DAILY PO Last administered on 07/30/18 07:47; Start 07/14/18 at 09:00 Guaifenesin (Robitussin Dm) 5 ml PRN Q8HRS PRN PO COUGH; Start 07/14/18 at 00: 30 Non-Formulary Medication (Menthol (Biofreeze)) 1 kiara QIDPRN PRN TP PAIN; Start 07/14/18 at 00:30; Status UNV Pantoprazole Sodium (Protonix) 40 mg DAILYAC PO Last administered on 07/30/18 07:47; Start 07/14/18 at 07:30 Levothyroxine Sodium (Synthroid) 100 mcg DAILY06 PO Last administered on 06:08; Start 07/15/18 at 06:00 Risperidone (RisperDAL CONSTA) 50 mg Q2WKS IM ; Start 07/20/18 at 09:00; Stop at 09:00; Status DC Meloxicam (Mobic) 15 mg DAILY PO Last administered on 07/30/18 07:47; Start at 09:00 Divalproex Sodium (Depakote Er) 1,250 mg QHS PO Last administered on 07/30/18 19:57; Start 07/15/18 at 21:00 Haloperidol (Haldol) 2 mg HS PO ; Start 07/15/18 at 21:00; Stop 07/15/18 at 21: 00; Status DC Haloperidol Lactate (HALDOL 10mg ORAL CONC) 2 mg HS PO Last administered on 19:14; Start 07/15/18 at 21:00; Stop 07/20/18 at 18:42; Status DC Fluvoxamine Maleate (Luvox) 25 mg HS PO Last administered on 07/19/18 19:14; Start 07/17/18 at 21:00; Stop 07/20/18 at 20:59; Status DC Fluvoxamine Maleate (Luvox) 50 mg HS PO Last administered on 07/23/18 20:39; Start 07/20/18 at 21:00; Stop 07/23/18 at 21:14; Status DC Furosemide (Lasix) 40 mg DAILY PO Last administered on 07/30/18 07:47; Start at 09:00 Haloperidol (Haldol) 5 mg HS PO Last administered on 07/24/18 20:09; Start at 21:00; Stop 07/25/18 at 19:19; Status DC Fluvoxamine Maleate (Luvox) 75 mg HS PO Last administered on 07/30/18 19:57; Start 07/23/18 at 21:30 Haloperidol (Haldol) 7.5 mg HS PO Last administered on 07/30/18 19:57; Start at 21:00 Diclofenac Sodium (Voltaren) 1 kiara BID TP Last administered on 07/30/18 07:48; Start 07/27/18 at 21:00 Lidocaine (Lidoderm) 2 patch DAILY TD ; Start 07/29/18 at 09:00; Stop 07/29/18 at 09:00; Status DC Lidocaine (Lidoderm) 2 patch DAILY TD ; Start 07/29/18 at 01:45; Stop 07/29/18 at 02:08; Status DC Lidocaine (Lidoderm) 4 patch HS TD ; Start 07/29/18 at 21:00; Stop 07/29/18 at 21: 00; Status DC Lidocaine (Lidoderm) 2 patch HS TD Last administered on 07/29/18at 20:11; Start 07/29/18 at 21:00; Stop 07/30/18 at 20:59; Status DC Miscellaneous (Lidoderm Patch Removal) 1 ea DAILY MC Last administered on at 07:49; Start 07/30/18 at 09:00 Lidocaine (Lidoderm) 4 patch HS TD Last administered on 07/30/18at 19:58; Start 07/30/18 at 21:00 Amlodipine Besylate (Norvasc) 5 mg DAILY PO ; Start 07/31/18 at 09:00 Active Scripts Active Reported Zoloft (Sertraline Hcl) 100 Mg Tablet 100 Mg PO HS Risperdal Consta (Risperidone Microspheres) 50 Mg/2 Ml Disp.syrin 50 Mg IM Q2WKS Prilosec Otc (Omeprazole Magnesium) 20 Mg Tablet.dr 40 Mg PO DAILY Biofreeze (Menthol) 118 Ml Gel..ml. 1 Kiara TP QIDPRN PRN Synthroid (Levothyroxine Sodium) 100 Mcg Tablet 100 Mcg PO DAILYAC Lasix (Furosemide) 20 Mg Tablet 20 Mg PO DAILY Finasteride 5 Mg Tablet 5 Mg PO DAILY Divalproex Sodium Er (Divalproex Sodium) 500 Mg Tab.er.24h 1,000 Mg PO HS Robitussin Cough-Chest Dm Liq (Guaifenesin/Dextromethorphan) 237 Ml Liquid 5 Ml PO PRN Q8HRS PRN Clonazepam 0.5 Mg Tablet 0.5 Mg PO PRN DAILY PRN Clonidine Hcl 0.2 Mg Tablet 0.2 Mg PO BIDWMEALS Aspirin 81 Mg Tab.chew 81 Mg PO DAILY Acetaminophen 500 Mg Tablet 500 Mg PO PRN Q6HRS PRN I have reviewed the current psychotropics carefully including drug interactions. Risk benefit ratio favors no change other than as noted in my dictated progress note. Diagnosis: Problems: (1) Altered mental status (2) Anxiety disorder (3) Psychosis, atypical (4) Major depressive disorder, recurrent episode (5) Mild cognitive impairment (6) Schizoaffective disorder, chronic condition with acute exacerbation JESSICA QUINTERO MD Jul 30, 2018 22:32
--- NOTE | 2018-07-31 01:20 | NUR ---
Nursing Note Pt pleasant calm and cooperative, states his hallucinations are unchanged.
[2018-07-31] MEDS: LEVOTHYROXINE 100 MCG TABLET PO SCH (04:50)
[2018-07-31 05:39] VITALS: BP 139/63
[2018-07-31] MEDS: PANTOPRAZOLE 40 MG TABLET. PO SCH (08:12)
[2018-07-31] MEDS: FINASTERIDE 5 MG TABLET PO SCH (08:12)
[2018-07-31] MEDS: FUROSEMIDE 40 MG TABLET PO SCH (08:12)
[2018-07-31] MEDS: cloNIDine HCL 0.2 MG TABLET PO SCH ×2 (08:13→16:58)
[2018-07-31] MEDS: MELOXICAM 15 MG TABLET. PO SCH (08:13)
[2018-07-31] MEDS: ASPIRIN 81 MG TAB.CHEW PO SCH (08:13)
[2018-07-31] MEDS: DICLOFENAC SODIUM 1% TOPICAL GEL 100GM TUBE. TP SCH ×2 (08:14→21:20)
[2018-07-31] MEDS: amLODIPine BESYLATE 5 MG TABLET PO SCH (08:14)
[2018-07-31] MEDS: PATCH REMOVAL. MC SCH (08:29)
[2018-07-31 16:11] VITALS: BP 143/91
--- NOTE | 2018-07-31 18:34 | NUR ---
Behavior Intervention Response and Plan: BIRP Note: Behavior: Assumed Care of patient, patient located in Patient Room at shift change. Patient exhibited the following behavior Interactive, calm, compliant. Brief assessment on rounds of vital signs, medication needs, lab studies, and pain. Treatment plan problems 1 & 2. Intervention: Patient assessed and the following interventions initiated safety checks 15 Minute Checks Cognitive Assessment , Head to toe Assessment , Medications. Response: After interactions and interventions patient responded in the following manner, Calm , Appropriate , compliant. Continue to assess behaviors and condition will continue to monitor throughout the shift as needed. Patient educated on ADL's, and hand hygiene. Plan: Continue to monitor Master Treatment Plan for patient's progress toward short term goals of Medication Compliance, No harm To self/ others, joint terminal attack controller goals to return to previous living setting vs placement. Continue to assess patient for changes in above assessment. Monitor for medication needs, pain, and safety concerns. Hourly rounding performed to ensure safe environment.
--- NOTE | 2018-07-31 20:06 | PN ---
DATE: 07/30/2018 PSYCHIATRIC PROGRESS NOTE This late entry 07/30/2018 covers elements not covered in my initial note. SUBJECTIVE: I met with the patient in the evening. The patient slept 8 hours previous evening. Overall, he has been still having intermittent hallucinations as before. Blood pressure was somewhat elevated. Dr. Diop has added amlodipine. He does have some edema. We will defer to Dr. Diop. REVIEW OF SYSTEMS: No CV, , pulmonary, eye system symptoms on review. MENTAL STATUS EXAM: Reasonably oriented. Speech has some latency, coherent. Abstraction fair, computation impaired, language function intact, attention span short. Mood and affect somewhat withdrawn at times. LABORATORY DATA: Reviewed. IMPRESSION: Unchanged from initial note. PLAN: No change from initial my note. We have increased the Haldol and the Luvox. May need to adjust further and Depakote level is therapeutic. MAN Nathalie QUINTERO MD DR: VIV/prakash JOB#: [id number] / [id number]
--- NOTE | 2018-07-31 20:07 | PN ---
DATE: 07/29/2018 PSYCHIATRIC PROGRESS NOTE This late entry 07/29/2018 covers elements not covered in my initial note. SUBJECTIVE: I met with the patient in the evening. I met with him in his room. He slept 8 hours previous night. He still complains of someone spraying things on him, but feels this less intense and he hears someone as well and feels someone as before under his bed, but less so than before. REVIEW OF SYSTEMS: No CV, , pulmonary, eye system symptoms on review. MENTAL STATUS EXAM: Oriented reasonably. Speech has some latency, coherent. Abstraction fair, computation impaired, language function intact. Mood and affect somewhat withdrawn. IMPRESSION: Unchanged from initial note. PLAN: No change for now. MAN Nathalie QUINTERO MD DR: VIV/prakash JOB#: [id number] / [id number]
--- NOTE | 2018-07-31 20:20 | NUR ---
Behavior Intervention Response and Plan: BIRP Note: Behavior: Assumed Care of patient, patient located in Patient Room at shift change. Patient exhibited the following behavior Interactive, Social, Cooperative. Brief assessment on rounds of vital signs, medication needs, lab studies, and pain. Treatment plan problems . Intervention: Patient assessed and the following interventions initiated safety checks 15 Minute Checks Cognitive Assessment , Head to toe Assessment , Medications. Response: After interactions and interventions patient responded in the following manner, Delusions , Calm ,Interactive. Continue to assess behaviors and condition will continue to monitor throughout the shift as needed. Patient educated on ADL's, and hand hygiene. 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 Continue to assess patient for changes in above assessment. Monitor for medication needs, pain, and safety concerns. Hourly rounding performed to ensure safe environment.
[2018-07-31] MEDS: DIVALPROEX ER 250 MG TAB.ER.24H. PO SCH (21:19)
[2018-07-31] MEDS: HALOPERIDOL 5 MG TABLET PO SCH (21:19)
[2018-07-31] MEDS: LIDOCAINE (700MG/PATCH) PATCH. TD SCH (21:20)
--- NOTE | 2018-07-31 22:27 | PDOC ---
Exam Note: Rick Note: Please also refer to the separate dictated note~for this date of service dictated separately.~Patient seen individually. Discussed the patient with Nursing staff reviewed the chart.~Reviewed interim history and current functioning. Reviewed vital signs,~Labs/ Radiology~and current medications noted below. Continue current treatment with the changes noted in the dictated addendum note Assessment: Vital Signs: Vital Signs Date Time Temp Pulse Resp B/P (MAP) Pulse Ox O2 Delivery O2 Flow Rate FiO2 07/31/18 16:58 61 143/91 07/31/18 16:11 97.4 18 91 07/30/18 05:43 Room Air I&O Intake and Output 07/31/18 07:00 Intake Total 1920 ml Balance 1920 ml Intake Oral 1920 ml Current Medications: Meds: Current Medications Acetaminophen (Tylenol) 650 mg PRN Q6HRS PRN PO PAIN / TEMP; Start 07/13/18 at 21:00; Status Cancel Multi-Ingredient Ointment (Analgesic [place]) 1 kiara PRN QID PRN TP MUSCLE PAIN Last administered on 07/14/18at 11:30; Start 07/13/18 at 21:00 Al Hydroxide/Mg Hydroxide (Mylanta Plus Xs) 15 ml PRN AFTMEALHC PRN PO DYSPEPSIA; Start 07/13/18 at 21:00 Magnesium Hydroxide (Milk Of Magnesia) 2,400 mg PRN QHS PRN PO CONSTIPATION; Start 07/13/18 at 21:00 Clonazepam (KlonoPIN) 0.5 mg PRN DAILY PRN PO ANXIETY / AGITATION Last administered on 07/14/18 07:54; Start 07/14/18 at 00:30 Furosemide (Lasix) 20 mg DAILY PO Last administered on 07/19/18 08:03; Start 07/14/18 at 09:00; Stop 07/19/18 at 19:00; Status DC Levothyroxine Sodium (Synthroid) 100 mcg DAILYAC PO Last administered on 07:53; Start 07/14/18 at 07:30; Stop 07/14/18 at 07:57; Status DC Risperidone (RisperDAL CONSTA) 50 mg Q2WKS IM Last administered on 07/20/18 08 :32; Start 07/20/18 at 09:00; Stop 07/25/18 at 19:19; Status DC Sertraline HCl (Zoloft) 100 mg HS PO Last administered on 07/16/18 19:44; Start 07/14/18 at 21:00; Stop 07/17/18 at 19:12; Status DC Acetaminophen (Tylenol) 500 mg PRN Q6HRS PRN PO MILD PAIN / TEMP Last administered on 07/27/18 06:10; Start 07/14/18 at 00:30 Aspirin (Children'S Aspirin) 81 mg DAILYWBKFT PO Last administered on 07/31/18 08:13; Start 07/14/18 at 08:00 Clonidine HCl (Catapres) 0.2 mg BIDWMEALS PO Last administered on 07/31/18 16: 58; Start 07/14/18 at 08:00 Divalproex Sodium (Depakote Er) 1,000 mg QHS PO Last administered on 07/14/18 19:33; Start 07/14/18 at 21:00; Stop 07/15/18 at 19:35; Status DC Finasteride (Proscar) 5 mg DAILY PO Last administered on 07/31/18 08:12; Start 07/14/18 at 09:00 Guaifenesin (Robitussin Dm) 5 ml PRN Q8HRS PRN PO COUGH; Start 07/14/18 at 00: 30 Non-Formulary Medication (Menthol (Biofreeze)) 1 kiara QIDPRN PRN TP PAIN; Start 07/14/18 at 00:30; Status UNV Pantoprazole Sodium (Protonix) 40 mg DAILYAC PO Last administered on 07/31/18 08:12; Start 07/14/18 at 07:30 Levothyroxine Sodium (Synthroid) 100 mcg DAILY06 PO Last administered on 04:50; Start 07/15/18 at 06:00 Risperidone (RisperDAL CONSTA) 50 mg Q2WKS IM ; Start 07/20/18 at 09:00; Stop at 09:00; Status DC Meloxicam (Mobic) 15 mg DAILY PO Last administered on 07/31/18 08:13; Start at 09:00 Divalproex Sodium (Depakote Er) 1,250 mg QHS PO Last administered on 07/31/18 21:19; Start 07/15/18 at 21:00 Haloperidol (Haldol) 2 mg HS PO ; Start 07/15/18 at 21:00; Stop 07/15/18 at 21: 00; Status DC Haloperidol Lactate (HALDOL 10mg ORAL CONC) 2 mg HS PO Last administered on at 19:14; Start 07/15/18 at 21:00; Stop 07/20/18 at 18:42; Status DC Fluvoxamine Maleate (Luvox) 25 mg HS PO Last administered on 07/19/18 19:14; Start 07/17/18 at 21:00; Stop 07/20/18 at 20:59; Status DC Fluvoxamine Maleate (Luvox) 50 mg HS PO Last administered on 07/23/18at 20:39; Start 07/20/18 at 21:00; Stop 07/23/18 at 21:14; Status DC Furosemide (Lasix) 40 mg DAILY PO Last administered on 07/31/18 08:12; Start at 09:00 Haloperidol (Haldol) 5 mg HS PO Last administered on 07/24/18 20:09; Start at 21:00; Stop 07/25/18 at 19:19; Status DC Fluvoxamine Maleate (Luvox) 75 mg HS PO Last administered on 07/31/18 21:19; Start 07/23/18 at 21:30 Haloperidol (Haldol) 7.5 mg HS PO Last administered on 07/31/18 21:19; Start at 21:00 Diclofenac Sodium (Voltaren) 1 kiara BID TP Last administered on 07/31/18 21:20; Start 07/27/18 at 21:00 Lidocaine (Lidoderm) 2 patch DAILY TD ; Start 07/29/18 at 09:00; Stop 07/29/18 at 09:00; Status DC Lidocaine (Lidoderm) 2 patch DAILY TD ; Start 07/29/18 at 01:45; Stop 07/29/18 at 02:08; Status DC Lidocaine (Lidoderm) 4 patch HS TD ; Start 07/29/18 at 21:00; Stop 07/29/18 at 21: 00; Status DC Lidocaine (Lidoderm) 2 patch HS TD Last administered on 07/29/18 20:11; Start 07/29/18 at 21:00; Stop 07/30/18 at 20:59; Status DC Miscellaneous (Lidoderm Patch Removal) 1 ea DAILY MC Last administered on 08:29; Start 07/30/18 at 09:00 Lidocaine (Lidoderm) 4 patch HS TD Last administered on 07/31/18at 21:20; Start 07/30/18 at 21:00 Amlodipine Besylate (Norvasc) 5 mg DAILY PO Last administered on 07/31/18 08:14 ; Start 07/31/18 at 09:00 Active Scripts Active Reported Zoloft (Sertraline Hcl) 100 Mg Tablet 100 Mg PO HS Risperdal Consta (Risperidone Microspheres) 50 Mg/2 Ml Disp.syrin 50 Mg IM Q2WKS Prilosec Otc (Omeprazole Magnesium) 20 Mg Tablet.dr 40 Mg PO DAILY Biofreeze (Menthol) 118 Ml Gel..ml. 1 Kiara TP QIDPRN PRN Synthroid (Levothyroxine Sodium) 100 Mcg Tablet 100 Mcg PO DAILYAC Lasix (Furosemide) 20 Mg Tablet 20 Mg PO DAILY Finasteride 5 Mg Tablet 5 Mg PO DAILY Divalproex Sodium Er (Divalproex Sodium) 500 Mg Tab.er.24h 1,000 Mg PO HS Robitussin Cough-Chest Dm Liq (Guaifenesin/Dextromethorphan) 237 Ml Liquid 5 Ml PO PRN Q8HRS PRN Clonazepam 0.5 Mg Tablet 0.5 Mg PO PRN DAILY PRN Clonidine Hcl 0.2 Mg Tablet 0.2 Mg PO BIDWMEALS Aspirin 81 Mg Tab.chew 81 Mg PO DAILY Acetaminophen 500 Mg Tablet 500 Mg PO PRN Q6HRS PRN I have reviewed the current psychotropics carefully including drug interactions. Risk benefit ratio favors no change other than as noted in my dictated progress note. Diagnosis: Problems: (1) Altered mental status (2) Anxiety disorder (3) Psychosis, atypical (4) Major depressive disorder, recurrent episode (5) Mild cognitive impairment (6) Schizoaffective disorder, chronic condition with acute exacerbation JESSICA QUINTERO MD Jul 31, 2018 22:27
[2018-08-01] MEDS: LEVOTHYROXINE 100 MCG TABLET PO SCH (05:33)
[2018-08-01 05:43] VITALS: BP 114/73
[2018-08-01] MEDS: FINASTERIDE 5 MG TABLET PO SCH (08:19)
[2018-08-01] MEDS: ASPIRIN 81 MG TAB.CHEW PO SCH (08:19)
[2018-08-01] MEDS: cloNIDine HCL 0.2 MG TABLET PO SCH ×2 (08:20→18:33)
[2018-08-01] MEDS: amLODIPine BESYLATE 5 MG TABLET PO SCH (08:20)
[2018-08-01] MEDS: PANTOPRAZOLE 40 MG TABLET. PO SCH (08:22)
[2018-08-01] MEDS: MELOXICAM 15 MG TABLET. PO SCH (08:23)
[2018-08-01] MEDS: FUROSEMIDE 40 MG TABLET PO SCH (08:23)
[2018-08-01] MEDS: PATCH REMOVAL. MC SCH (09:00)
[2018-08-01] MEDS: DICLOFENAC SODIUM 1% TOPICAL GEL 100GM TUBE. TP SCH ×2 (09:00→20:33)
[2018-08-01 09:02] VITALS: BP 100/71
--- NOTE | 2018-08-01 15:13 | PN ---
DATE: 07/31/2018 PSYCHIATRIC PROGRESS NOTE This late entry 07/31/2018 covers elements not covered in my initial note. SUBJECTIVE: I met with the patient in the evening. The patient slept 8 hours previous night. He still believes someone is throwing things at him, but less intensely. He is somewhat obsessing about this, addressed this at length individually. He has been withdrawn. REVIEW OF SYSTEMS: No CV, , pulmonary, eye, ENT system symptoms on review. MENTAL STATUS EXAM: Oriented reasonably. Speech is coherent, has some latency. Abstraction fair, computation impaired, language function intact, attention span short. Mood and affect somewhat withdrawn. LABORATORY DATA: Reviewed. IMPRESSION: Unchanged from initial note. PLAN: Go ahead and increase the Luvox from 75 mg at bedtime to 100 mg at bedtime. Maintain Haldol 7.5 mg p.o. at bedtime. We have stopped the Risperdal Consta since he is compliant with oral medication. Maintain Depakote ER 1250 mg at bedtime, level therapeutic at 58. MAN Nathalie QUINTERO MD DR: VIV/prakash JOB#: [id number] / [id number]
[2018-08-01 16:07] VITALS: BP 131/90
[2018-08-01] MEDS: HALOPERIDOL 5 MG TABLET PO SCH (20:27)
[2018-08-01] MEDS: DIVALPROEX ER 250 MG TAB.ER.24H. PO SCH (20:28)
[2018-08-01] MEDS: LIDOCAINE (700MG/PATCH) PATCH. TD SCH (20:33)
--- NOTE | 2018-08-01 22:00 | PDOC ---
Exam Note: Rick Note: Please also refer to the separate dictated note~for this date of service dictated separately.~Patient seen individually. Discussed the patient with Nursing staff reviewed the chart.~Reviewed interim history and current functioning. Reviewed vital signs,~Labs/ Radiology~and current medications noted below. Continue current treatment with the changes noted in the dictated addendum note Assessment: Vital Signs: Vital Signs Date Time Temp Pulse Resp B/P (MAP) Pulse Ox O2 Delivery O2 Flow Rate FiO2 08/01/18 18:33 56 131/90 08/01/18 16:07 97.6 18 95 Room Air I&O Intake and Output 08/01/18 06:59 Intake Total 1680 ml Balance 1680 ml Intake Oral 1680 ml Current Medications: Meds: Current Medications Acetaminophen (Tylenol) 650 mg PRN Q6HRS PRN PO PAIN / TEMP; Start 07/13/18 at 21:00; Status Cancel Multi-Ingredient Ointment (Analgesic [place]) 1 kiara PRN QID PRN TP MUSCLE PAIN Last administered on 07/14/18at 11:30; Start 07/13/18 at 21:00 Al Hydroxide/Mg Hydroxide (Mylanta Plus Xs) 15 ml PRN AFTMEALHC PRN PO DYSPEPSIA; Start 07/13/18 at 21:00 Magnesium Hydroxide (Milk Of Magnesia) 2,400 mg PRN QHS PRN PO CONSTIPATION; Start 07/13/18 at 21:00 Clonazepam (KlonoPIN) 0.5 mg PRN DAILY PRN PO ANXIETY / AGITATION Last administered on 07/14/18at 07:54; Start 07/14/18 at 00:30 Furosemide (Lasix) 20 mg DAILY PO Last administered on 07/19/18at 08:03; Start 07/14/18 at 09:00; Stop 07/19/18 at 19:00; Status DC Levothyroxine Sodium (Synthroid) 100 mcg DAILYAC PO Last administered on 07:53; Start 07/14/18 at 07:30; Stop 07/14/18 at 07:57; Status DC Risperidone (RisperDAL CONSTA) 50 mg Q2WKS IM Last administered on 07/20/18 08 :32; Start 07/20/18 at 09:00; Stop 07/25/18 at 19:19; Status DC Sertraline HCl (Zoloft) 100 mg HS PO Last administered on 07/16/18 19:44; Start 07/14/18 at 21:00; Stop 07/17/18 at 19:12; Status DC Acetaminophen (Tylenol) 500 mg PRN Q6HRS PRN PO MILD PAIN / TEMP Last administered on 07/27/18 06:10; Start 07/14/18 at 00:30 Aspirin (Children'S Aspirin) 81 mg DAILYWBKFT PO Last administered on 08/01/18 08:19; Start 07/14/18 at 08:00 Clonidine HCl (Catapres) 0.2 mg BIDWMEALS PO Last administered on 08/01/18 18: 33; Start 07/14/18 at 08:00 Divalproex Sodium (Depakote Er) 1,000 mg QHS PO Last administered on 07/14/18 19:33; Start 07/14/18 at 21:00; Stop 07/15/18 at 19:35; Status DC Finasteride (Proscar) 5 mg DAILY PO Last administered on 08/01/18 08:19; Start 07/14/18 at 09:00 Guaifenesin (Robitussin Dm) 5 ml PRN Q8HRS PRN PO COUGH; Start 07/14/18 at 00: 30 Non-Formulary Medication (Menthol (Biofreeze)) 1 kiara QIDPRN PRN TP PAIN; Start 07/14/18 at 00:30; Status UNV Pantoprazole Sodium (Protonix) 40 mg DAILYAC PO Last administered on 08/01/18 08:22; Start 07/14/18 at 07:30 Levothyroxine Sodium (Synthroid) 100 mcg DAILY06 PO Last administered on 05:33; Start 07/15/18 at 06:00 Risperidone (RisperDAL CONSTA) 50 mg Q2WKS IM ; Start 07/20/18 at 09:00; Stop at 09:00; Status DC Meloxicam (Mobic) 15 mg DAILY PO Last administered on 08/01/18 08:23; Start at 09:00 Divalproex Sodium (Depakote Er) 1,250 mg QHS PO Last administered on 08/01/18 20:28; Start 07/15/18 at 21:00 Haloperidol (Haldol) 2 mg HS PO ; Start 07/15/18 at 21:00; Stop 07/15/18 at 21: 00; Status DC Haloperidol Lactate (HALDOL 10mg ORAL CONC) 2 mg HS PO Last administered on at 19:14; Start 07/15/18 at 21:00; Stop 07/20/18 at 18:42; Status DC Fluvoxamine Maleate (Luvox) 25 mg HS PO Last administered on 07/19/18 19:14; Start 07/17/18 at 21:00; Stop 07/20/18 at 20:59; Status DC Fluvoxamine Maleate (Luvox) 50 mg HS PO Last administered on 07/23/18 20:39; Start 07/20/18 at 21:00; Stop 07/23/18 at 21:14; Status DC Furosemide (Lasix) 40 mg DAILY PO Last administered on 08/01/18 08:23; Start at 09:00 Haloperidol (Haldol) 5 mg HS PO Last administered on 07/24/18 20:09; Start at 21:00; Stop 07/25/18 at 19:19; Status DC Fluvoxamine Maleate (Luvox) 75 mg HS PO Last administered on 07/31/18 21:19; Start 07/23/18 at 21:30; Stop 08/01/18 at 16:48; Status DC Haloperidol (Haldol) 7.5 mg HS PO Last administered on 08/01/18 20:27; Start at 21:00 Diclofenac Sodium (Voltaren) 1 kiara BID TP Last administered on 08/01/18 20:33; Start 07/27/18 at 21:00 Lidocaine (Lidoderm) 2 patch DAILY TD ; Start 07/29/18 at 09:00; Stop 07/29/18 at 09:00; Status DC Lidocaine (Lidoderm) 2 patch DAILY TD ; Start 07/29/18 at 01:45; Stop 07/29/18 at 02:08; Status DC Lidocaine (Lidoderm) 4 patch HS TD ; Start 07/29/18 at 21:00; Stop 07/29/18 at 21: 00; Status DC Lidocaine (Lidoderm) 2 patch HS TD Last administered on 07/29/18 20:11; Start 07/29/18 at 21:00; Stop 07/30/18 at 20:59; Status DC Miscellaneous (Lidoderm Patch Removal) 1 ea DAILY MC Last administered on 09:00; Start 07/30/18 at 09:00 Lidocaine (Lidoderm) 4 patch HS TD Last administered on 07/31/18 21:20; Start 07/30/18 at 21:00; Stop 08/01/18 at 00:24; Status DC Amlodipine Besylate (Norvasc) 5 mg DAILY PO Last administered on 08/01/18 08:20 ; Start 07/31/18 at 09:00 Lidocaine (Lidoderm) 2 patch HS TD Last administered on 08/01/18 20:33; Start 08/01/18 at 21:00 Fluvoxamine Maleate (Luvox) 100 mg HS PO Last administered on 08/01/18 20:33; Start 08/01/18 at 21:00 Active Scripts Active Reported Zoloft (Sertraline Hcl) 100 Mg Tablet 100 Mg PO HS Risperdal Consta (Risperidone Microspheres) 50 Mg/2 Ml Disp.syrin 50 Mg IM Q2WKS Prilosec Otc (Omeprazole Magnesium) 20 Mg Tablet.dr 40 Mg PO DAILY Biofreeze (Menthol) 118 Ml Gel..ml. 1 Kiara TP QIDPRN PRN Synthroid (Levothyroxine Sodium) 100 Mcg Tablet 100 Mcg PO DAILYAC Lasix (Furosemide) 20 Mg Tablet 20 Mg PO DAILY Finasteride 5 Mg Tablet 5 Mg PO DAILY Divalproex Sodium Er (Divalproex Sodium) 500 Mg Tab.er.24h 1,000 Mg PO HS Robitussin Cough-Chest Dm Liq (Guaifenesin/Dextromethorphan) 237 Ml Liquid 5 Ml PO PRN Q8HRS PRN Clonazepam 0.5 Mg Tablet 0.5 Mg PO PRN DAILY PRN Clonidine Hcl 0.2 Mg Tablet 0.2 Mg PO BIDWMEALS Aspirin 81 Mg Tab.chew 81 Mg PO DAILY Acetaminophen 500 Mg Tablet 500 Mg PO PRN Q6HRS PRN I have reviewed the current psychotropics carefully including drug interactions. Risk benefit ratio favors no change other than as noted in my dictated progress note. Diagnosis: Problems: (1) Altered mental status (2) Anxiety disorder (3) Psychosis, atypical (4) Major depressive disorder, recurrent episode (5) Mild cognitive impairment (6) Schizoaffective disorder, chronic condition with acute exacerbation JESSICA QUINTERO MD Aug 01, 2018 22:00
[2018-08-02 05:38] VITALS: BP 119/77
[2018-08-02] MEDS: LEVOTHYROXINE 100 MCG TABLET PO SCH (06:23)
[2018-08-02] MEDS: ASPIRIN 81 MG TAB.CHEW PO SCH (08:08)
[2018-08-02] MEDS: MELOXICAM 15 MG TABLET. PO SCH (08:08)
[2018-08-02] MEDS: amLODIPine BESYLATE 5 MG TABLET PO SCH (08:08)
[2018-08-02] MEDS: FUROSEMIDE 40 MG TABLET PO SCH (08:08)
[2018-08-02] MEDS: PANTOPRAZOLE 40 MG TABLET. PO SCH (08:09)
[2018-08-02] MEDS: FINASTERIDE 5 MG TABLET PO SCH (08:09)
[2018-08-02] MEDS: cloNIDine HCL 0.2 MG TABLET PO SCH ×2 (08:10→16:35)
--- NOTE | 2018-08-02 08:20 | NUR ---
Behavior Intervention Response and Plan: BIRP Note: Behavior: Assumed Care of patient, patient located in Patient Room at shift change. Patient exhibited the following behavior Interactive, Disorganized, Hallucinating. Brief assessment on rounds of vital signs, medication needs, lab studies, and pain. Treatment plan problems 1 & 2. Intervention: Patient assessed and the following interventions initiated safety checks 15 Minute Checks Cognitive Assessment , Head to toe Assessment , Medications. Response: After interactions and interventions patient responded in the following manner, Calm , Appropriate, and Compliant. Continue to assess behaviors and condition will continue to monitor throughout the shift as needed. Patient educated on ADL's, and hand hygiene. 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 Continue to assess patient for changes in above assessment. Monitor for medication needs, pain, and safety concerns. Hourly rounding performed to ensure safe environment.
[2018-08-02] MEDS: PATCH REMOVAL. MC SCH (09:00)
[2018-08-02] MEDS: DICLOFENAC SODIUM 1% TOPICAL GEL 100GM TUBE. TP SCH ×2 (09:00→20:23)
--- NOTE | 2018-08-02 10:31 | NUR ---
Patient c/o feeling dizzy, dry mouthed, and flushed. Auto BP was 63/32 with VT 64, temporal temp 97.8F. Manual BP was 70/50. Radial pulses present, no cyanosis, no numbness/tingling in digits. Patient provided with a Gatorade, glass of water, and two orange juice cups. Labs ordered, MD javier. Addendum: 08/02/18 at 1405 by DARVIN ADAMES II, RN Patient BP 114/75, VT 57. IV bolus order received; PIV initiated in right hand, 22g by SHWETA Jansen.
[2018-08-02 10:33] LABS: BASO % 1 % (0-3); EOS # 0.1 x10^3/uL (0.0-0.7); EOS % 2 % (0-3); HEMATOCRIT 42.8 % (39.0-53.0); HEMOGLOBIN 14.3 g/dL (13.0-17.5); LYMPH # 1.7 x10^3/uL (1.0-4.8); LYMPH % 26 % (24-48); MEAN CORPUSCULAR HEMOGLOBIN 31 pg (25-35); MEAN CORPUSCULAR HGB CONC 33 g/dL (31-37); MEAN CORPUSCULAR VOLUME 93 fL (79-100); MONO % 15 % (0-9); NEUT # 3.6 x10^3uL (1.8-7.7); NEUT % 57 % (31-73); PLATELET COUNT 144 x10^3/uL (140-400); RED BLOOD COUNT 4.62 x10^6/uL (4.30-5.70); RED CELL DISTRIBUTION WIDTH 14.8 % (11.5-14.5); WHITE BLOOD COUNT 6.4 x10^3/uL (4.0-11.0)
[2018-08-02 10:47] LABS: ALBUMIN 3.3 g/dL (3.4-5.0); CREATININE 1.3 mg/dL (0.7-1.3); GFR 54.7; POTASSIUM 4.2 mmol/L (3.5-5.1); TOTAL BILIRUBIN 0.4 mg/dL (0.2-1.0); TOTAL PROTEIN 6.7 g/dL (6.4-8.2)
[2018-08-02] MEDS ORDERED: IV NORMAL SALINE 500ML 500 ML IV ONE (13:15)
--- NOTE | 2018-08-02 14:54 | EKG ---
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
[2018-08-02 16:11] VITALS: BP 111/75
--- NOTE | 2018-08-02 17:00 | NUR ---
SW met with pt and discussed his wish to discharge on Tuesday. Pt son will be able to pick pt up then as he is off work. 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 Pt will talk to his son to see what time that will be and then contact SW with the oyster picker time.
--- NOTE | 2018-08-02 19:26 | PN ---
DATE: 08/01/2018 PSYCHIATRIC PROGRESS NOTE This late entry 08/01/2018 covers elements not covered in my initial note. SUBJECTIVE: I met with the patient in the evening. The patient slept 7-1/4 hours previous evening. He states people spraying things on him seemed less intense. He is still somewhat psychotic, but less obsessed about this. REVIEW OF SYSTEMS: Positive for pedal edema, knee pain. No CV, , pulmonary, eye system symptoms on review. MENTAL STATUS EXAM: Reasonably oriented. Speech has some latency, coherent. Abstraction fair, computation impaired, language function intact. He is somewhat withdrawn. LABORATORY DATA: Reviewed. IMPRESSION: Unchanged from initial note. PLAN: Increase Luvox from 75 to 100 mg at bedtime. Rest unchanged per initial note. MAN Nathalie QUINTERO MD DR: VIV/prakash JOB#: [id number] / [id number]
[2018-08-02] MEDS: HALOPERIDOL 5 MG TABLET PO SCH (20:20)
[2018-08-02] MEDS: DIVALPROEX ER 250 MG TAB.ER.24H. PO SCH (20:20)
--- NOTE | 2018-08-02 20:20 | NUR ---
Behavior Intervention Response and Plan: BIRP Note: Behavior: Assumed Care of patient, patient located in Patient Room at shift change. Patient exhibited the following behavior Interactive, Calm, Withdrawn. Brief assessment on rounds of vital signs, medication needs, lab studies, and pain. Treatment plan problems . Intervention: Patient assessed and the following interventions initiated safety checks 15 Minute Checks Cognitive Assessment , Head to toe Assessment , Medications. Response: After interactions and interventions patient responded in the following manner, Drowsy , Calm ,Cooperative. Continue to assess behaviors and condition will continue to monitor throughout the shift as needed. Patient educated on ADL's, and hand hygiene. 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 Continue to assess patient for changes in above assessment. Monitor for medication needs, pain, and safety concerns. Hourly rounding performed to ensure safe environment.
[2018-08-02] MEDS: LIDOCAINE (700MG/PATCH) PATCH. TD SCH (20:21)
--- NOTE | 2018-08-02 22:14 | PDOC ---
Exam Note: Rick Note: Please also refer to the separate dictated note~for this date of service dictated separately.~Patient seen individually. Discussed the patient with Nursing staff reviewed the chart.~Reviewed interim history and current functioning. Reviewed vital signs,~Labs/ Radiology~and current medications noted below. Continue current treatment with the changes noted in the dictated addendum note Assessment: Vital Signs: Vital Signs Date Time Temp Pulse Resp B/P (MAP) Pulse Ox O2 Delivery O2 Flow Rate FiO2 08/02/18 16:35 56 111/75 08/02/18 16:11 97.2 18 94 08/01/18 16:07 Room Air I&O Intake and Output 08/02/18 06:59 Intake Total 1080 ml Balance 1080 ml Intake Oral 1080 ml # Bowel Movements 2 Labs: Laboratory Tests Test 08/02/18 10:21 White Blood Count 6.4 x10^3/uL (4.0-11.0) Red Blood Count 4.62 x10^6/uL (4.30-5.70) Hemoglobin 14.3 g/dL (13.0-17.5) Hematocrit 42.8 % (39.0-53.0) Mean Corpuscular Volume 93 fL (79-100) Mean Corpuscular Hemoglobin 31 pg (25-35) Mean Corpuscular Hemoglobin Concent 33 g/dL (31-37) Red Cell Distribution Width 14.8 % (11.5-14.5) H Platelet Count 144 x10^3/uL (140-400) Neutrophils (%) (Auto) 57 % (31-73) Lymphocytes (%) (Auto) 26 % (24-48) Monocytes (%) (Auto) 15 % (0-9) H Eosinophils (%) (Auto) 2 % (0-3) Basophils (%) (Auto) 1 % (0-3) Neutrophils # (Auto) 3.6 x10^3uL (1.8-7.7) Lymphocytes # (Auto) 1.7 x10^3/uL (1.0-4.8) Monocytes # (Auto) 1.0 x10^3/uL (0.0-1.1) Eosinophils # (Auto) 0.1 x10^3/uL (0.0-0.7) Basophils # (Auto) 0.0 x10^3/uL (0.0-0.2) Sodium Level 139 mmol/L (136-145) Potassium Level 4.2 mmol/L (3.5-5.1) Chloride Level 101 mmol/L (98-107) Carbon Dioxide Level 31 mmol/L (21-32) Anion Gap 7 (6-14) Blood Urea Nitrogen 25 mg/dL (8-26) Creatinine 1.3 mg/dL (0.7-1.3) Estimated GFR (Cockcroft-Gault) 54.7 BUN/Creatinine Ratio 19 (6-20) Glucose Level 108 mg/dL (70-99) H Calcium Level 9.0 mg/dL (8.5-10.1) Total Bilirubin 0.4 mg/dL (0.2-1.0) Aspartate Amino Transferase (AST) 13 U/L (15-37) L Alanine Aminotransferase (ALT) 18 U/L (16-63) Alkaline Phosphatase 93 U/L (46-116) Total Protein 6.7 g/dL (6.4-8.2) Albumin 3.3 g/dL (3.4-5.0) L Albumin/Globulin Ratio 1.0 (1.0-1.7) Current Medications: Meds: Current Medications Acetaminophen (Tylenol) 650 mg PRN Q6HRS PRN PO PAIN / TEMP; Start 07/13/18 at 21:00; Status Cancel Multi-Ingredient Ointment (Analgesic [place]) 1 kiara PRN QID PRN TP MUSCLE PAIN Last administered on 07/14/18at 11:30; Start 07/13/18 at 21:00 Al Hydroxide/Mg Hydroxide (Mylanta Plus Xs) 15 ml PRN AFTMEALHC PRN PO DYSPEPSIA; Start 07/13/18 at 21:00 Magnesium Hydroxide (Milk Of Magnesia) 2,400 mg PRN QHS PRN PO CONSTIPATION; Start 07/13/18 at 21:00 Clonazepam (KlonoPIN) 0.5 mg PRN DAILY PRN PO ANXIETY / AGITATION Last administered on 07/14/18at 07:54; Start 07/14/18 at 00:30 Furosemide (Lasix) 20 mg DAILY PO Last administered on 07/19/18at 08:03; Start 07/14/18 at 09:00; Stop 07/19/18 at 19:00; Status DC Levothyroxine Sodium (Synthroid) 100 mcg DAILYAC PO Last administered on 07:53; Start 07/14/18 at 07:30; Stop 07/14/18 at 07:57; Status DC Risperidone (RisperDAL CONSTA) 50 mg Q2WKS IM Last administered on 07/20/18 08 :32; Start 07/20/18 at 09:00; Stop 07/25/18 at 19:19; Status DC Sertraline HCl (Zoloft) 100 mg HS PO Last administered on 07/16/18 19:44; Start 07/14/18 at 21:00; Stop 07/17/18 at 19:12; Status DC Acetaminophen (Tylenol) 500 mg PRN Q6HRS PRN PO MILD PAIN / TEMP Last administered on 07/27/18 06:10; Start 07/14/18 at 00:30 Aspirin (Children'S Aspirin) 81 mg DAILYWBKFT PO Last administered on 08/02/18 08:08; Start 07/14/18 at 08:00 Clonidine HCl (Catapres) 0.2 mg BIDWMEALS PO Last administered on 08/02/18 08: 10; Start 07/14/18 at 08:00; Stop 08/02/18 at 18:57; Status DC Divalproex Sodium (Depakote Er) 1,000 mg QHS PO Last administered on 07/14/18 19:33; Start 07/14/18 at 21:00; Stop 07/15/18 at 19:35; Status DC Finasteride (Proscar) 5 mg DAILY PO Last administered on 08/02/18 08:09; Start 07/14/18 at 09:00 Guaifenesin (Robitussin Dm) 5 ml PRN Q8HRS PRN PO COUGH; Start 07/14/18 at 00: 30 Non-Formulary Medication (Menthol (Biofreeze)) 1 kiara QIDPRN PRN TP PAIN; Start 07/14/18 at 00:30; Status UNV Pantoprazole Sodium (Protonix) 40 mg DAILYAC PO Last administered on 08/02/18 08:09; Start 07/14/18 at 07:30 Levothyroxine Sodium (Synthroid) 100 mcg DAILY06 PO Last administered on 06:23; Start 07/15/18 at 06:00 Risperidone (RisperDAL CONSTA) 50 mg Q2WKS IM ; Start 07/20/18 at 09:00; Stop at 09:00; Status DC Meloxicam (Mobic) 15 mg DAILY PO Last administered on 08/02/18 08:08; Start at 09:00 Divalproex Sodium (Depakote Er) 1,250 mg QHS PO Last administered on 08/02/18 20:20; Start 07/15/18 at 21:00 Haloperidol (Haldol) 2 mg HS PO ; Start 07/15/18 at 21:00; Stop 07/15/18 at 21: 00; Status DC Haloperidol Lactate (HALDOL 10mg ORAL CONC) 2 mg HS PO Last administered on 19:14; Start 07/15/18 at 21:00; Stop 07/20/18 at 18:42; Status DC Fluvoxamine Maleate (Luvox) 25 mg HS PO Last administered on 07/19/18 19:14; Start 07/17/18 at 21:00; Stop 07/20/18 at 20:59; Status DC Fluvoxamine Maleate (Luvox) 50 mg HS PO Last administered on 07/23/18 20:39; Start 07/20/18 at 21:00; Stop 07/23/18 at 21:14; Status DC Furosemide (Lasix) 40 mg DAILY PO Last administered on 08/02/18 08:08; Start at 09:00 Haloperidol (Haldol) 5 mg HS PO Last administered on 07/24/18 20:09; Start at 21:00; Stop 07/25/18 at 19:19; Status DC Fluvoxamine Maleate (Luvox) 75 mg HS PO Last administered on 07/31/18 21:19; Start 07/23/18 at 21:30; Stop 08/01/18 at 16:48; Status DC Haloperidol (Haldol) 7.5 mg HS PO Last administered on 08/02/18 20:20; Start at 21:00 Diclofenac Sodium (Voltaren) 1 kiara BID TP Last administered on 08/02/18 20:23; Start 07/27/18 at 21:00 Lidocaine (Lidoderm) 2 patch DAILY TD ; Start 07/29/18 at 09:00; Stop 07/29/18 at 09:00; Status DC Lidocaine (Lidoderm) 2 patch DAILY TD ; Start 07/29/18 at 01:45; Stop 07/29/18 at 02:08; Status DC Lidocaine (Lidoderm) 4 patch HS TD ; Start 07/29/18 at 21:00; Stop 07/29/18 at 21: 00; Status DC Lidocaine (Lidoderm) 2 patch HS TD Last administered on 07/29/18at 20:11; Start 07/29/18 at 21:00; Stop 07/30/18 at 20:59; Status DC Miscellaneous (Lidoderm Patch Removal) 1 ea DAILY MC Last administered on 09:00; Start 07/30/18 at 09:00 Lidocaine (Lidoderm) 4 patch HS TD Last administered on 07/31/18 21:20; Start 07/30/18 at 21:00; Stop 08/01/18 at 00:24; Status DC Amlodipine Besylate (Norvasc) 5 mg DAILY PO Last administered on 08/02/18 08:08 ; Start 07/31/18 at 09:00 Lidocaine (Lidoderm) 2 patch HS TD Last administered on 08/02/18 20:21; Start 08/01/18 at 21:00 Fluvoxamine Maleate (Luvox) 100 mg HS PO Last administered on 08/02/18 20:19; Start 08/01/18 at 21:00 Sodium Chloride 500 ml @ 0 mls/hr 1X ONCE IV Last administered on 08/02/18 13: 45; Start 08/02/18 at 13:15; Stop 08/02/18 at 13:16; Status DC Clonidine HCl (Catapres) 0.1 mg BIDWMEALS PO ; Start 08/03/18 at 08:00 Active Scripts Active Reported Zoloft (Sertraline Hcl) 100 Mg Tablet 100 Mg PO HS Risperdal Consta (Risperidone Microspheres) 50 Mg/2 Ml Disp.syrin 50 Mg IM Q2WKS Prilosec Otc (Omeprazole Magnesium) 20 Mg Tablet.dr 40 Mg PO DAILY Biofreeze (Menthol) 118 Ml Gel..ml. 1 Kiara TP QIDPRN PRN Synthroid (Levothyroxine Sodium) 100 Mcg Tablet 100 Mcg PO DAILYAC Lasix (Furosemide) 20 Mg Tablet 20 Mg PO DAILY Finasteride 5 Mg Tablet 5 Mg PO DAILY Divalproex Sodium Er (Divalproex Sodium) 500 Mg Tab.er.24h 1,000 Mg PO HS Robitussin Cough-Chest Dm Liq (Guaifenesin/Dextromethorphan) 237 Ml Liquid 5 Ml PO PRN Q8HRS PRN Clonazepam 0.5 Mg Tablet 0.5 Mg PO PRN DAILY PRN Clonidine Hcl 0.2 Mg Tablet 0.2 Mg PO BIDWMEALS Aspirin 81 Mg Tab.chew 81 Mg PO DAILY Acetaminophen 500 Mg Tablet 500 Mg PO PRN Q6HRS PRN I have reviewed the current psychotropics carefully including drug interactions. Risk benefit ratio favors no change other than as noted in my dictated progress note. Diagnosis: Problems: (1) Altered mental status (2) Anxiety disorder (3) Psychosis, atypical (4) Major depressive disorder, recurrent episode (5) Mild cognitive impairment (6) Schizoaffective disorder, chronic condition with acute exacerbation JESSICA QUINTERO MD Aug 02, 2018 22:14
[2018-08-03 05:58] VITALS: BP 138/87
[2018-08-03] MEDS: LEVOTHYROXINE 100 MCG TABLET PO SCH (06:00)
[2018-08-03 06:36] LABS: BASO % 1 % (0-3); EOS # 0.1 x10^3/uL (0.0-0.7); EOS % 3 % (0-3); HEMATOCRIT 42.9 % (39.0-53.0); HEMOGLOBIN 14.3 g/dL (13.0-17.5); LYMPH # 1.6 x10^3/uL (1.0-4.8); LYMPH % 31 % (24-48); MEAN CORPUSCULAR HEMOGLOBIN 31 pg (25-35); MEAN CORPUSCULAR HGB CONC 33 g/dL (31-37); MEAN CORPUSCULAR VOLUME 93 fL (79-100); MONO # 0.9 x10^3/uL (0.0-1.1); MONO % 18 % (0-9); NEUT # 2.4 x10^3uL (1.8-7.7); NEUT % 48 % (31-73); PLATELET COUNT 129 x10^3/uL (140-400); RED BLOOD COUNT 4.64 x10^6/uL (4.30-5.70); RED CELL DISTRIBUTION WIDTH 14.4 % (11.5-14.5); WHITE BLOOD COUNT 5.2 x10^3/uL (4.0-11.0)
[2018-08-03 06:56] LABS: ALBUMIN 3.1 g/dL (3.4-5.0); ALBUMIN/GLOBULIN RATIO 0.9 (1.0-1.7); CALCIUM 9.1 mg/dL (8.5-10.1); CREATININE 1.1 mg/dL (0.7-1.3); GFR 66.4; POTASSIUM 4.7 mmol/L (3.5-5.1); TOTAL BILIRUBIN 0.3 mg/dL (0.2-1.0); TOTAL PROTEIN 6.5 g/dL (6.4-8.2)
[2018-08-03] MEDS: PANTOPRAZOLE 40 MG TABLET. PO SCH (08:02)
[2018-08-03] MEDS: FUROSEMIDE 40 MG TABLET PO SCH (08:02)
[2018-08-03] MEDS: amLODIPine BESYLATE 5 MG TABLET PO SCH (08:02)
[2018-08-03] MEDS: ASPIRIN 81 MG TAB.CHEW PO SCH (08:02)
[2018-08-03] MEDS: FINASTERIDE 5 MG TABLET PO SCH (08:02)
[2018-08-03] MEDS: MELOXICAM 15 MG TABLET. PO SCH (08:02)
[2018-08-03] MEDS: PATCH REMOVAL. MC SCH (08:04)
[2018-08-03] MEDS: cloNIDine HCL 0.1 MG TABLET PO SCH ×2 (08:04→17:15)
--- NOTE | 2018-08-03 08:20 | NUR ---
Behavior Intervention Response and Plan: BIRP Note: Behavior: Assumed Care of patient, patient located in Patient Room at shift change. Patient exhibited the following behavior Interactive, Disorganized, Hallucinating. Brief assessment on rounds of vital signs, medication needs, lab studies, and pain. Treatment plan problems 1 & 2. Intervention: Patient assessed and the following interventions initiated safety checks 15 Minute Checks Cognitive Assessment , Head to toe Assessment , Medications. Response: After interactions and interventions patient responded in the following manner, Calm , Appropriate, and Compliant. Continue to assess behaviors and condition will continue to monitor throughout the shift as needed. Patient educated on ADL's, and hand hygiene. Plan: Continue to monitor Master Treatment Plan for patient's progress toward short term goals of Medication Compliance, No harm To self/ others, intermediate project manager goals to return to previous living setting vs placement. Continue to assess patient for changes in above assessment. Monitor for medication needs, pain, and safety concerns. Hourly rounding performed to ensure safe environment.
[2018-08-03] MEDS: DICLOFENAC SODIUM 1% TOPICAL GEL 100GM TUBE. TP SCH (09:00)
--- NOTE | 2018-08-03 09:15 | NUR ---
WEEKLY ACTIVITY THERAPY NOTE Date of Admission: 07/13/2018 Date of AT Assessment: 07/16/2018 Goal aimed:to increase engagement Initial goal: Pt. will participate in at least one Activity Therapy group per day. Weekly progress towards goal: did not achieve Group participation level: minimal to zero Behaviors observed: in room most of the time, sleeping often. Usually pleasant, fully engaged when present in groups. Only group participation this week was last and Tuesday Plan: change goal to: Pt. will participate in at least three Activity Therapy groups before discharge.
--- NOTE | 2018-08-03 09:29 | NUR ---
WEEKLY NOTE: Pt is compliant, calm and appropriate with staff and peers. Pt did receive fluids as pt appeared to be dehydrated. Pt is medication compliant and will receive services through [facility]. Pt to discharge tomorrow.
--- NOTE | 2018-08-03 10:45 | NUR ---
Orthostatic vital signs obtained; laying down 120/77 P73, sitting 135/84 P67, standing 101/71 P70. Patient does not complain of any dizziness at this time. He was instructed to drink plenty of fluids, provided with a Gatorade. MD javier, will continue to monitor. Addendum: 08/03/18 at 1258 by DARVIN ADAMES II, RN New orders received, will discuss with patient.
[2018-08-03] MEDS ORDERED: DICLOFENAC SODIUM 1% TOPICAL GEL 100GM TUBE. TP PRN (15:30)
[2018-08-03 16:19] VITALS: BP 151/92
[2018-08-03] MEDS: DIVALPROEX ER 250 MG TAB.ER.24H. PO SCH (19:56)
[2018-08-03] MEDS: LIDOCAINE (700MG/PATCH) PATCH. TD SCH ×2 (19:56→21:00)
[2018-08-03] MEDS: HALOPERIDOL 5 MG TABLET PO SCH (19:57)
--- NOTE | 2018-08-03 22:08 | PDOC ---
Exam Note: Rick Note: Please also refer to the separate dictated note~for this date of service dictated separately.~Patient seen individually. Discussed the patient with Nursing staff reviewed the chart.~Reviewed interim history and current functioning. Reviewed vital signs,~Labs/ Radiology~and current medications noted below. Continue current treatment with the changes noted in the dictated addendum note Assessment: Vital Signs: Vital Signs Date Time Temp Pulse Resp B/P (MAP) Pulse Ox O2 Delivery O2 Flow Rate FiO2 08/03/18 17:15 62 151/92 08/03/18 16:19 97.3 18 98 Room Air I&O Intake and Output 08/03/18 06:59 Intake Total 1800 ml Balance 1800 ml Intake Oral 1800 ml # Voids 1 # Bowel Movements 1 Labs: Laboratory Tests Test 08/03/18 06:18 White Blood Count 5.2 x10^3/uL (4.0-11.0) Red Blood Count 4.64 x10^6/uL (4.30-5.70) Hemoglobin 14.3 g/dL (13.0-17.5) Hematocrit 42.9 % (39.0-53.0) Mean Corpuscular Volume 93 fL (79-100) Mean Corpuscular Hemoglobin 31 pg (25-35) Mean Corpuscular Hemoglobin Concent 33 g/dL (31-37) Red Cell Distribution Width 14.4 % (11.5-14.5) Platelet Count 129 x10^3/uL (140-400) L Neutrophils (%) (Auto) 48 % (31-73) Lymphocytes (%) (Auto) 31 % (24-48) Monocytes (%) (Auto) 18 % (0-9) H Eosinophils (%) (Auto) 3 % (0-3) Basophils (%) (Auto) 1 % (0-3) Neutrophils # (Auto) 2.4 x10^3uL (1.8-7.7) Lymphocytes # (Auto) 1.6 x10^3/uL (1.0-4.8) Monocytes # (Auto) 0.9 x10^3/uL (0.0-1.1) Eosinophils # (Auto) 0.1 x10^3/uL (0.0-0.7) Basophils # (Auto) 0.0 x10^3/uL (0.0-0.2) Sodium Level 141 mmol/L (136-145) Potassium Level 4.7 mmol/L (3.5-5.1) Chloride Level 104 mmol/L (98-107) Carbon Dioxide Level 33 mmol/L (21-32) H Anion Gap 4 (6-14) L Blood Urea Nitrogen 22 mg/dL (8-26) Creatinine 1.1 mg/dL (0.7-1.3) Estimated GFR (Cockcroft-Gault) 66.4 BUN/Creatinine Ratio 20 (6-20) Glucose Level 95 mg/dL (70-99) Calcium Level 9.1 mg/dL (8.5-10.1) Total Bilirubin 0.3 mg/dL (0.2-1.0) Aspartate Amino Transferase (AST) 11 U/L (15-37) L Alanine Aminotransferase (ALT) 15 U/L (16-63) L Alkaline Phosphatase 92 U/L (46-116) Total Protein 6.5 g/dL (6.4-8.2) Albumin 3.1 g/dL (3.4-5.0) L Albumin/Globulin Ratio 0.9 (1.0-1.7) L Current Medications: Meds: Current Medications Acetaminophen (Tylenol) 650 mg PRN Q6HRS PRN PO PAIN / TEMP; Start 07/13/18 at 21:00; Status Cancel Multi-Ingredient Ointment (Analgesic [place]) 1 kiara PRN QID PRN TP MUSCLE PAIN Last administered on 07/14/18at 11:30; Start 07/13/18 at 21:00 Al Hydroxide/Mg Hydroxide (Mylanta Plus Xs) 15 ml PRN AFTMEALHC PRN PO DYSPEPSIA; Start 07/13/18 at 21:00 Magnesium Hydroxide (Milk Of Magnesia) 2,400 mg PRN QHS PRN PO CONSTIPATION; Start 07/13/18 at 21:00 Clonazepam (KlonoPIN) 0.5 mg PRN DAILY PRN PO ANXIETY / AGITATION Last administered on 07/14/18at 07:54; Start 07/14/18 at 00:30 Furosemide (Lasix) 20 mg DAILY PO Last administered on 07/19/18at 08:03; Start 07/14/18 at 09:00; Stop 07/19/18 at 19:00; Status DC Levothyroxine Sodium (Synthroid) 100 mcg DAILYAC PO Last administered on 07:53; Start 07/14/18 at 07:30; Stop 07/14/18 at 07:57; Status DC Risperidone (RisperDAL CONSTA) 50 mg Q2WKS IM Last administered on 07/20/18 08 :32; Start 07/20/18 at 09:00; Stop 07/25/18 at 19:19; Status DC Sertraline HCl (Zoloft) 100 mg HS PO Last administered on 07/16/18 19:44; Start 07/14/18 at 21:00; Stop 07/17/18 at 19:12; Status DC Acetaminophen (Tylenol) 500 mg PRN Q6HRS PRN PO MILD PAIN / TEMP Last administered on 07/27/18 06:10; Start 07/14/18 at 00:30 Aspirin (Children'S Aspirin) 81 mg DAILYWBKFT PO Last administered on 08/03/18 08:02; Start 07/14/18 at 08:00 Clonidine HCl (Catapres) 0.2 mg BIDWMEALS PO Last administered on 08/02/18 08: 10; Start 07/14/18 at 08:00; Stop 08/02/18 at 18:57; Status DC Divalproex Sodium (Depakote Er) 1,000 mg QHS PO Last administered on 07/14/18 19:33; Start 07/14/18 at 21:00; Stop 07/15/18 at 19:35; Status DC Finasteride (Proscar) 5 mg DAILY PO Last administered on 08/03/18 08:02; Start 07/14/18 at 09:00 Guaifenesin (Robitussin Dm) 5 ml PRN Q8HRS PRN PO COUGH; Start 07/14/18 at 00: 30 Non-Formulary Medication (Menthol (Biofreeze)) 1 kiara QIDPRN PRN TP PAIN; Start 07/14/18 at 00:30; Status UNV Pantoprazole Sodium (Protonix) 40 mg DAILYAC PO Last administered on 08/03/18 08:02; Start 07/14/18 at 07:30 Levothyroxine Sodium (Synthroid) 100 mcg DAILY06 PO Last administered on 06:00; Start 07/15/18 at 06:00 Risperidone (RisperDAL CONSTA) 50 mg Q2WKS IM ; Start 07/20/18 at 09:00; Stop at 09:00; Status DC Meloxicam (Mobic) 15 mg DAILY PO Last administered on 08/03/18 08:02; Start at 09:00 Divalproex Sodium (Depakote Er) 1,250 mg QHS PO Last administered on 08/03/18 19:56; Start 07/15/18 at 21:00 Haloperidol (Haldol) 2 mg HS PO ; Start 07/15/18 at 21:00; Stop 07/15/18 at 21: 00; Status DC Haloperidol Lactate (HALDOL 10mg ORAL CONC) 2 mg HS PO Last administered on 19:14; Start 07/15/18 at 21:00; Stop 07/20/18 at 18:42; Status DC Fluvoxamine Maleate (Luvox) 25 mg HS PO Last administered on 07/19/18 19:14; Start 07/17/18 at 21:00; Stop 07/20/18 at 20:59; Status DC Fluvoxamine Maleate (Luvox) 50 mg HS PO Last administered on 07/23/18 20:39; Start 07/20/18 at 21:00; Stop 07/23/18 at 21:14; Status DC Furosemide (Lasix) 40 mg DAILY PO Last administered on 08/03/18 08:02; Start at 09:00 Haloperidol (Haldol) 5 mg HS PO Last administered on 07/24/18 20:09; Start at 21:00; Stop 07/25/18 at 19:19; Status DC Fluvoxamine Maleate (Luvox) 75 mg HS PO Last administered on 07/31/18 21:19; Start 07/23/18 at 21:30; Stop 08/01/18 at 16:48; Status DC Haloperidol (Haldol) 7.5 mg HS PO Last administered on 08/03/18 19:57; Start at 21:00 Diclofenac Sodium (Voltaren) 1 kiara BID TP Last administered on 08/02/18 20:23; Start 07/27/18 at 21:00; Stop 08/03/18 at 15:18; Status DC Lidocaine (Lidoderm) 2 patch DAILY TD ; Start 07/29/18 at 09:00; Stop 07/29/18 at 09:00; Status DC Lidocaine (Lidoderm) 2 patch DAILY TD ; Start 07/29/18 at 01:45; Stop 07/29/18 at 02:08; Status DC Lidocaine (Lidoderm) 4 patch HS TD ; Start 07/29/18 at 21:00; Stop 07/29/18 at 21: 00; Status DC Lidocaine (Lidoderm) 2 patch HS TD Last administered on 07/29/18 20:11; Start 07/29/18 at 21:00; Stop 07/30/18 at 20:59; Status DC Miscellaneous (Lidoderm Patch Removal) 1 ea DAILY MC Last administered on 08:04; Start 07/30/18 at 09:00 Lidocaine (Lidoderm) 4 patch HS TD Last administered on 07/31/18 21:20; Start 07/30/18 at 21:00; Stop 08/01/18 at 00:24; Status DC Amlodipine Besylate (Norvasc) 5 mg DAILY PO Last administered on 08/03/18 08:02 ; Start 07/31/18 at 09:00; Stop 08/03/18 at 12:59; Status DC Lidocaine (Lidoderm) 2 patch HS TD Last administered on 08/03/18 19:56; Start 08/01/18 at 21:00 Fluvoxamine Maleate (Luvox) 100 mg HS PO Last administered on 08/03/18 19:57; Start 08/01/18 at 21:00 Sodium Chloride 500 ml @ 0 mls/hr 1X ONCE IV Last administered on 08/02/18 13: 45; Start 08/02/18 at 13:15; Stop 08/02/18 at 13:16; Status DC Clonidine HCl (Catapres) 0.1 mg BIDWMEALS PO Last administered on 08/03/18 17: 15; Start 08/03/18 at 08:00 Diclofenac Sodium (Voltaren) 1 kiara PRN TID PRN TP MUSCLE PAIN; Start 08/03/18 at 15:30 Active Scripts Active Reported Zoloft (Sertraline Hcl) 100 Mg Tablet 100 Mg PO HS Risperdal Consta (Risperidone Microspheres) 50 Mg/2 Ml Disp.syrin 50 Mg IM Q2WKS Prilosec Otc (Omeprazole Magnesium) 20 Mg Tablet.dr 40 Mg PO DAILY Biofreeze (Menthol) 118 Ml Gel..ml. 1 Kiara TP QIDPRN PRN Synthroid (Levothyroxine Sodium) 100 Mcg Tablet 100 Mcg PO DAILYAC Lasix (Furosemide) 20 Mg Tablet 20 Mg PO DAILY Finasteride 5 Mg Tablet 5 Mg PO DAILY Divalproex Sodium Er (Divalproex Sodium) 500 Mg Tab.er.24h 1,000 Mg PO HS Robitussin Cough-Chest Dm Liq (Guaifenesin/Dextromethorphan) 237 Ml Liquid 5 Ml PO PRN Q8HRS PRN Clonazepam 0.5 Mg Tablet 0.5 Mg PO PRN DAILY PRN Clonidine Hcl 0.2 Mg Tablet 0.2 Mg PO BIDWMEALS Aspirin 81 Mg Tab.chew 81 Mg PO DAILY Acetaminophen 500 Mg Tablet 500 Mg PO PRN Q6HRS PRN I have reviewed the current psychotropics carefully including drug interactions. Risk benefit ratio favors no change other than as noted in my dictated progress note. Diagnosis: Problems: (1) Altered mental status (2) Anxiety disorder (3) Psychosis, atypical (4) Major depressive disorder, recurrent episode (5) Mild cognitive impairment (6) Schizoaffective disorder, chronic condition with acute exacerbation JESSICA QUINTERO MD Aug 03, 2018 22:08
--- NOTE | 2018-08-04 00:31 | NUR ---
Pt sitting quietly in the day room watching movie at shift change. Pt calm, pleasant, cooperative and interactive with staff. Pt cooperative with assessment and compliant with medications. Pt refused Lidoderm patches to bilateral knees this evening.
[2018-08-04] MEDS ORDERED: DICL100G18 TP (01:35)
[2018-08-04] MEDS ORDERED: DIVA250T14 PO (01:37)
[2018-08-04] MEDS ORDERED: FURO40TA4 PO (01:37)
[2018-08-04] MEDS ORDERED: HALO5TAB PO (01:38)
[2018-08-04] MEDS ORDERED: LIDO700A39 TD (01:39)
[2018-08-04] MEDS ORDERED: MAG355OR17 PO (01:40)
[2018-08-04] MEDS ORDERED: MAGN2400 PO (01:41)
[2018-08-04] MEDS ORDERED: MELO15TA23 PO (01:41)
[2018-08-04] MEDS ORDERED: Patch Removal MC (01:42)
[2018-08-04] MEDS ORDERED: CLON0.1T PO (01:43)
[2018-08-04] MEDS ORDERED: FLUV100T2 PO (01:43)
[2018-08-04] MEDS: LEVOTHYROXINE 100 MCG TABLET PO SCH (06:25)
[2018-08-04 06:31] VITALS: BP 136/86
[2018-08-04] MEDS: PANTOPRAZOLE 40 MG TABLET. PO SCH (07:36)
[2018-08-04] MEDS: FINASTERIDE 5 MG TABLET PO SCH (07:36)
[2018-08-04 07:37] VITALS: BP 136/86
[2018-08-04] MEDS: cloNIDine HCL 0.1 MG TABLET PO SCH (07:37)
[2018-08-04] MEDS: FUROSEMIDE 40 MG TABLET PO SCH (07:37)
[2018-08-04] MEDS: ASPIRIN 81 MG TAB.CHEW PO SCH (07:37)
[2018-08-04] MEDS: MELOXICAM 15 MG TABLET. PO SCH (07:37)
[2018-08-04] MEDS: PATCH REMOVAL. MC SCH (07:43)
--- NOTE | 2018-08-04 08:00 | NUR ---
Behavior Intervention Response and Plan: BIRP Note: Behavior: Assumed Care of patient, patient located in Patient Room at shift change. Patient exhibited the following behavior Interactive, Disorganized, Hallucinating. Brief assessment on rounds of vital signs, medication needs, lab studies, and pain. Treatment plan problems 1 & 2. Intervention: Patient assessed and the following interventions initiated safety checks 15 Minute Checks Cognitive Assessment , Head to toe Assessment , Medications. Response: After interactions and interventions patient responded in the following manner, Calm , Appropriate, and Compliant. Continue to assess behaviors and condition will continue to monitor throughout the shift as needed. Patient educated on ADL's, and hand hygiene. Plan: Continue to monitor Master Treatment Plan for patient's progress toward short term goals of Medication Compliance, No harm To self/ others, long winder tender goals to return to previous living setting vs placement. Continue to assess patient for changes in above assessment. Monitor for medication needs, pain, and safety concerns. Hourly rounding performed to ensure safe environment.
--- NOTE | 2018-08-04 09:57 | NUR ---
[facility] Social Work Discharge Planning Form Patient Name SARAH GONSALES Admit Date: 07/13/18 DISCHARGE PLAN Discharge Destination: Home alone with services through [facility] Assessment: N/A Level II Assessment: N/A Transportation: Pt son Ben is scheduled to pick pt up between 10 and 1030 Special Instructions/Notes: Please fax discharge medication list and any orders over to [facility] and his PCP. DISCHARGE TO HOME: Address: [address] [place] [address] Responsible Democrat: Pt is a self-sign Pharmacy: [facility] Contact Information: [address] [place] [id number] Psychiatrist/Mental Health [facility] Contact Information: [address] [place] [address] Appointment: SHWETA Garcia, will contact you with all the appointment dates and times. Primary Care Follow Up: Veronica Barnard MD Contact Information: [place] [address] Appointment: 09/08 @ [facility]
--- NOTE | 2018-08-04 10:30 | NUR ---
Transition Record was faxed to follow-up provider with the following elements: Reason for admission, procedures, tests, principal diagnosis, pending studies, patient instructions, 20/12 contact information for unit, phone number to obtain pending test results, plan for follow-up care, physician follow-up, advanced directive information, and medication list with dose, duration and instructions. This information was included in the following documents: History and physical, lab results, study results, progress notes, social work planning form, DC instruction form, patient visit summary, and medication reconciliation form. Date & time record faxed: 10:55 04 August 2018 Record faxed to: Dr. Barnard & [facility] Record discussed with/ report given to: Prescriptions called into [facility]; Discharge education provided to patient and his son (primary caregiver)
--- NOTE | 2018-08-04 19:46 | PN ---
DATE: 08/02/2018 PSYCHIATRIC PROGRESS NOTE This late entry 08/02/2018 covers elements not covered in my initial note. SUBJECTIVE: The patient has been somewhat withdrawn, otherwise appropriate. Still has intermittent hallucinations as before, but much improved. Slept 7 hours previous night, blood pressure was low in the morning. Dr. Diop addressed this and he received IV fluids, then was better. REVIEW OF SYSTEMS: No CV, , pulmonary, eye system symptoms on review. MENTAL STATUS EXAM: Reasonably oriented. Speech coherent, met with him in his room. No suicidal or homicidal ideation. IMPRESSION: Unchanged from initial note. PLAN: No change from initial note. MAN Nathalie QUINTERO MD DR: VIV/prakash JOB#: [id number] / [id number]
--- NOTE | 2018-08-04 19:51 | PN ---
DATE: 08/03/2018 PSYCHIATRIC PROGRESS NOTE This late entry 08/03/2018 covers elements not covered in my initial note. SUBJECTIVE: I met with the patient in the evening and staffed at a treatment team meeting with the entire team earlier in the day. The patient slept 6-3/[address] Diop has reduced the clonidine because of his hypotension. He did receive IV fluids. Blood pressure is more stable. Still has intermittent hallucinations, but less so. REVIEW OF SYSTEMS: No CV, , pulmonary, eye system symptoms on review, met with him in his room. MENTAL STATUS EXAM: Reasonably oriented. Speech has some latency, often responses monosyllabic. Abstraction fair, computation impaired, language function intact. Mood and affect somewhat withdrawn. LABORATORY DATA: Reviewed. IMPRESSION: Unchanged from initial note. PLAN: No change from initial note. Possible transition to outpatient treatment 08/04/2018. MAN Nathalie QUINTERO MD DR: VIV/prakash JOB#: [id number] / [id number]
--- NOTE | 2018-08-04 22:43 | PDOC ---
Exam Note: Rick Note: Please also refer to the separate dictated note~for this date of service dictated separately.~Patient seen individually. Discussed the patient with Nursing staff reviewed the chart.~Reviewed interim history and current functioning. Reviewed vital signs,~Labs/ Radiology~and current medications noted below. Continue current treatment with the changes noted in the dictated addendum note Assessment: Vital Signs: Vital Signs Date Time Temp Pulse Resp B/P (MAP) Pulse Ox O2 Delivery O2 Flow Rate FiO2 08/04/18 07:37 55 136/86 08/04/18 06:31 98.2 18 93 Room Air I&O Intake and Output 08/04/18 06:59 Intake Total 1440 ml Balance 1440 ml Intake Oral 1440 ml Current Medications: Meds: Current Medications Acetaminophen (Tylenol) 650 mg PRN Q6HRS PRN PO PAIN / TEMP; Start 07/13/18 at 21:00; Status Cancel Multi-Ingredient Ointment (Analgesic [place]) 1 kiara PRN QID PRN TP MUSCLE PAIN Last administered on 07/14/18at 11:30; Start 07/13/18 at 21:00; Stop 08/04/18 at 11:15; Status DC Al Hydroxide/Mg Hydroxide (Mylanta Plus Xs) 15 ml PRN AFTMEALHC PRN PO DYSPEPSIA; Start 07/13/18 at 21:00; Stop 08/04/18 at 11:15; Status DC Magnesium Hydroxide (Milk Of Magnesia) 2,400 mg PRN QHS PRN PO CONSTIPATION; Start 07/13/18 at 21:00; Stop 08/04/18 at 11:15; Status DC Clonazepam (KlonoPIN) 0.5 mg PRN DAILY PRN PO ANXIETY / AGITATION Last administered on 07/14/18at 07:54; Start 07/14/18 at 00:30; Stop 08/04/18 at 11:15 ; Status DC Furosemide (Lasix) 20 mg DAILY PO Last administered on 07/19/18at 08:03; Start 07/14/18 at 09:00; Stop 07/19/18 at 19:00; Status DC Levothyroxine Sodium (Synthroid) 100 mcg DAILYAC PO Last administered on at 07:53; Start 07/14/18 at 07:30; Stop 07/14/18 at 07:57; Status DC Risperidone (RisperDAL CONSTA) 50 mg Q2WKS IM Last administered on 07/20/18 08 :32; Start 07/20/18 at 09:00; Stop 07/25/18 at 19:19; Status DC Sertraline HCl (Zoloft) 100 mg HS PO Last administered on 07/16/18at 19:44; Start 07/14/18 at 21:00; Stop 07/17/18 at 19:12; Status DC Acetaminophen (Tylenol) 500 mg PRN Q6HRS PRN PO MILD PAIN / TEMP Last administered on 07/27/18 06:10; Start 07/14/18 at 00:30; Stop 08/04/18 at 11:15 ; Status DC Aspirin (Children'S Aspirin) 81 mg DAILYWBKFT PO Last administered on 08/04/18 07:37; Start 07/14/18 at 08:00; Stop 08/04/18 at 11:15; Status DC Clonidine HCl (Catapres) 0.2 mg BIDWMEALS PO Last administered on 08/02/18at 08: 10; Start 07/14/18 at 08:00; Stop 08/02/18 at 18:57; Status DC Divalproex Sodium (Depakote Er) 1,000 mg QHS PO Last administered on 07/14/18 19:33; Start 07/14/18 at 21:00; Stop 07/15/18 at 19:35; Status DC Finasteride (Proscar) 5 mg DAILY PO Last administered on 08/04/18at 07:36; Start 07/14/18 at 09:00; Stop 08/04/18 at 11:15; Status DC Guaifenesin (Robitussin Dm) 5 ml PRN Q8HRS PRN PO COUGH; Start 07/14/18 at 00: 30; Stop 08/04/18 at 11:15; Status DC Non-Formulary Medication (Menthol (Biofreeze)) 1 kiara QIDPRN PRN TP PAIN; Start 07/14/18 at 00:30; Status UNV Pantoprazole Sodium (Protonix) 40 mg DAILYAC PO Last administered on 08/04/18at 07:36; Start 07/14/18 at 07:30; Stop 08/04/18 at 11:15; Status DC Levothyroxine Sodium (Synthroid) 100 mcg DAILY06 PO Last administered on 06:25; Start 07/15/18 at 06:00; Stop 08/04/18 at 11:15; Status DC Risperidone (RisperDAL CONSTA) 50 mg Q2WKS IM ; Start 07/20/18 at 09:00; Stop at 09:00; Status DC Meloxicam (Mobic) 15 mg DAILY PO Last administered on 08/04/18at 07:37; Start at 09:00; Stop 08/04/18 at 11:15; Status DC Divalproex Sodium (Depakote Er) 1,250 mg QHS PO Last administered on 08/03/18at 19:56; Start 07/15/18 at 21:00; Stop 08/04/18 at 11:15; Status DC Haloperidol (Haldol) 2 mg HS PO ; Start 07/15/18 at 21:00; Stop 07/15/18 at 21: 00; Status DC Haloperidol Lactate (HALDOL 10mg ORAL CONC) 2 mg HS PO Last administered on 19:14; Start 07/15/18 at 21:00; Stop 07/20/18 at 18:42; Status DC Fluvoxamine Maleate (Luvox) 25 mg HS PO Last administered on 07/19/18at 19:14; Start 07/17/18 at 21:00; Stop 07/20/18 at 20:59; Status DC Fluvoxamine Maleate (Luvox) 50 mg HS PO Last administered on 07/23/18at 20:39; Start 07/20/18 at 21:00; Stop 07/23/18 at 21:14; Status DC Furosemide (Lasix) 40 mg DAILY PO Last administered on 08/04/18 07:37; Start at 09:00; Stop 08/04/18 at 11:15; Status DC Haloperidol (Haldol) 5 mg HS PO Last administered on 07/24/18at 20:09; Start at 21:00; Stop 07/25/18 at 19:19; Status DC Fluvoxamine Maleate (Luvox) 75 mg HS PO Last administered on 07/31/18 21:19; Start 07/23/18 at 21:30; Stop 08/01/18 at 16:48; Status DC Haloperidol (Haldol) 7.5 mg HS PO Last administered on 08/03/18 19:57; Start at 21:00; Stop 08/04/18 at 11:15; Status DC Diclofenac Sodium (Voltaren) 1 kiara BID TP Last administered on 08/02/18 20:23; Start 07/27/18 at 21:00; Stop 08/03/18 at 15:18; Status DC Lidocaine (Lidoderm) 2 patch DAILY TD ; Start 07/29/18 at 09:00; Stop 07/29/18 at 09:00; Status DC Lidocaine (Lidoderm) 2 patch DAILY TD ; Start 07/29/18 at 01:45; Stop 07/29/18 at 02:08; Status DC Lidocaine (Lidoderm) 4 patch HS TD ; Start 07/29/18 at 21:00; Stop 07/29/18 at 21: 00; Status DC Lidocaine (Lidoderm) 2 patch HS TD Last administered on 07/29/18 20:11; Start 07/29/18 at 21:00; Stop 07/30/18 at 20:59; Status DC Miscellaneous (Lidoderm Patch Removal) 1 ea DAILY MC Last administered on 08:04; Start 07/30/18 at 09:00; Stop 08/04/18 at 11:15; Status DC Lidocaine (Lidoderm) 4 patch HS TD Last administered on 07/31/18 21:20; Start 07/30/18 at 21:00; Stop 08/01/18 at 00:24; Status DC Amlodipine Besylate (Norvasc) 5 mg DAILY PO Last administered on 08/03/18 08:02 ; Start 07/31/18 at 09:00; Stop 08/03/18 at 12:59; Status DC Lidocaine (Lidoderm) 2 patch HS TD Last administered on 08/02/18 20:21; Start 08/01/18 at 21:00; Stop 08/04/18 at 11:15; Status DC Fluvoxamine Maleate (Luvox) 100 mg HS PO Last administered on 3/7/19at 19:57; Start 08/01/18 at 21:00; Stop 08/04/18 at 11:15; Status DC Sodium Chloride 500 ml @ 0 mls/hr 1X ONCE IV Last administered on 08/02/18at 13: 45; Start 08/02/18 at 13:15; Stop 08/02/18 at 13:16; Status DC Clonidine HCl (Catapres) 0.1 mg BIDWMEALS PO Last administered on 08/04/18at 07: 37; Start 08/03/18 at 08:00; Stop 08/04/18 at 11:15; Status DC Diclofenac Sodium (Voltaren) 1 kiara PRN TID PRN TP MUSCLE PAIN; Start 08/03/18 at 15:30; Stop 08/04/18 at 11:15; Status DC Active Scripts Active Reported Fluvoxamine Maleate 100 Mg Tablet 100 Mg PO HS Clonidine Hcl 0.1 Mg Tablet 0.1 Mg PO BIDWMEALS [Patch Removal] 1 Patch MC DAILY Meloxicam 15 Mg Tablet 15 Mg PO DAILY Milk Of Magnesia (Magnesium Hydroxide) 2,400 Mg/10 Ml Oral.susp 2,400 Mg PO PRN QHS PRN Advanced Antacid Liquid (Mag Hydrox/Al Hydrox/Simeth) 355 Ml Oral.susp 15 Ml PO PRN AFTMEALHC PRN Lidocaine 1 Each Adh..patch 2 Patch TD HS Haloperidol 5 Mg Tablet 7.5 Mg PO HS Furosemide 40 Mg Tablet 40 Mg PO DAILY Divalproex Sodium Er (Divalproex Sodium) 250 Mg Tab.er.24h 1,250 Mg PO HS Voltaren (Diclofenac Sodium) 100 Gm Gel..gram. 1 Kiara TP PRN TID PRN Prilosec Otc (Omeprazole Magnesium) 20 Mg Tablet.dr 40 Mg PO DAILY Biofreeze (Menthol) 118 Ml Gel..ml. 1 Kiara TP QIDPRN PRN Synthroid (Levothyroxine Sodium) 100 Mcg Tablet 100 Mcg PO DAILYAC Finasteride 5 Mg Tablet 5 Mg PO DAILY Robitussin Cough-Chest Dm Liq (Guaifenesin/Dextromethorphan) 237 Ml Liquid 5 Ml PO PRN Q8HRS PRN Clonazepam 0.5 Mg Tablet 0.5 Mg PO PRN DAILY PRN Aspirin 81 Mg Tab.chew 81 Mg PO DAILY Acetaminophen 500 Mg Tablet 500 Mg PO PRN Q6HRS PRN I have reviewed the current psychotropics carefully including drug interactions. Risk benefit ratio favors no change other than as noted in my dictated progress note. Diagnosis: Problems: (1) Altered mental status (2) Anxiety disorder (3) Psychosis, atypical (4) Major depressive disorder, recurrent episode (5) Mild cognitive impairment (6) Schizoaffective disorder, chronic condition with acute exacerbation JESSICA QUINTERO MD Aug 04, 2018 22:43
--- NOTE | 2018-08-14 14:08 | DS ---
DATE OF DISCHARGE: 08/04/2018 DISCHARGE SUMMARY/PSYCHIATRIC PROGRESS NOTE This is a late entry, date of service 08/04/2018 covers elements not covered in my initial note of 08/04/2018. REASON FOR ADMISSION: Please refer to the admission history for details. Briefly, the patient is a 68-year-old male referred to us from [facility] in [place] where he presented from home on account of persistent hallucinations and delusions that a man was spraying things on him. He was noted to be somewhat manic, having auditory hallucinations, hearing people talk to him. Reportedly, he had altered mental status examination and changes at [place] and had failed a rather lengthy inpatient psychiatric hospitalization prior to this admission and the previous admission was at [facility] in [place]. He was living alone by himself and active psychotic symptoms were creating a situation where he was unable to manage functioning on his own, referred for inpatient psychiatric stabilization. SIGNIFICANT FINDINGS AND CLINICAL COURSE: Following admission, the patient was seen daily individually by myself from a psychiatric standpoint, medical followup with Dr. Diop. The patient was extremely graphic in his description about people spraying things on him, rolling around under his bed to where he could feel them, touching him, talking to him. This was despite intramuscular Risperdal Consta and the other psychotropics he was taking at admission. Adjustments were made in his psychotropics and he seemed to do a little better on a combination of Depakote ER 1250 mg at bedtime with a level which was therapeutic. Haldol was at 7.5 mg at bedtime. He was noted to be quite obsessive, ruminative. Luvox was adjusted to 100 mg at bedtime and he was on Klonopin p.r.n. He did become dehydrated at a couple of points during the hospitalization and Dr. Diop addressed this with IV fluids. Prior to discharge on 08/04/2018, he was reasonably oriented, still having intermittent hallucinations, but much improved. No suicidal or homicidal ideation. Outpatient followup at being arranged through the [facility] in [place], [place] by [facility] social [facility] staff. FINAL DIAGNOSES: Psychotic disorder, unspecified versus schizoaffective disorder, bipolar type, mixed with psychotic features; cognitive disorder, unspecified; obsessive compulsive disorder, anxiety disorder, unspecified. Rest as above. DISCHARGE MEDICATIONS: Please refer to the MRAD. DISCHARGE INSTRUCTIONS: Outpatient psychiatric and medical followup at [facility]. JESSICA QUINTERO MD DR: VIV/prakash JOB#: [id number] / [id number]
== END 2018-08-04 10:45 | disposition home health service (06) | DRG 885 ==
LOC: GEROPSY 18:56
PROVIDERS: ADMIT Psychiatry & Neurology Psychiatry; ATTEND Psychiatry & Neurology Psychiatry
DX: F25.0 Schizoaffective disorder, bipolar type (principal); F10.231 Alcohol dependence with withdrawal delirium; F29 Unspecified psychosis not due to a substance or known physiological condition; F41.9 Anxiety disorder, unspecified; E03.9 Hypothyroidism, unspecified; G31.84 Mild cognitive impairment of uncertain or unknown etiology; I10 Essential (primary) hypertension; K21.9 Gastro-esophageal reflux disease without esophagitis; L21.0 Seborrhea capitis; M17.11 Unilateral primary osteoarthritis, right knee; N40.0 Benign prostatic hyperplasia without lower urinary tract symptoms; Z79.899 Other long term (current) drug therapy; F63.9 Impulse disorder, unspecified
CPT/HCPCS: 36415; 80053; 80061; 80164; 81001; 82306; 83036; 83540; 83550; 83735; 84436; 84443; 84480; 85025; 86592; 93005; J2794; J7040